=== PATIENT | male | born 1950 | race Caucasian/White ===

== ENCOUNTER → 2017-11-17 | Outpatient (CLI) | payer OTHER, MEDICARE ==
[~2017-11-17] MED LIST: ADVIN25050 INH; ALBU1AER9 INH; ASPI81TA28 PO; ATOR-24 PO; ATR25 PO; LORA-741 PO; METO25TA56 PO; NIFE30TA83 PO; NTRGSL/4 UT; PRLSR20 PO; SILD50TA PO; TRIA0.1C20 TOP
--- NOTE | 2017-11-18 05:35 | PAP/PSG TECHNICIAN REPORT ---
[facility] Safety Officer Polysomnogram Report Study name: None Report date: 11/18/2017 Study date: 11/17/2017 Referring Physician: Rogelio Verdin PA-C Name: CHIP CAREY Interpreting Physician: Med Downing M.D. Date of : 1950 Safety Officer: Velma Geller [facility]. Sex: Male Age: 67 Study Type: PSG Weight: 180 lbs Height: 67 years, Height 5' 8" BMI: 27.37 Medications: BACLOFEN 10 MG, ADVAIR DISKUS 250-50 MCG/DOSE, LOSARTAN 25 MG, METOPROLOL 25 MG, ASPIRIN 81 MG, ATORVASTATIN 40 MG, MIRALAX, BACTROBAN 2% OINT, VIAGRA 50 MG, ALBUTEROL Patient History 66 yr-old male here for a baseline/split study. He has a history of COPD, leg cramps, nose bleeds, and daytime sleepiness. His Morton scale is 8. The test was started on room air. ETCO2 testing was not utilized during this study. Room 1 Parameters Monitored NPSG: E1-M2, E2-M1, Fp1-M2, Fp2-M1, F3-M2, F4-M2, F4-M1, C3-M2, C4-M2, C4-M1, O1-M2, O2-M2, O2-M1, T3-M2, T4-M1, P3-M2, P4-M1, CHIN1, CHIN2, HR, EKG, Legs, PFLOW, SNOR, FLOW, CFLOW, Tidal Volume, THOR, ABDO, SpO2, PLTH, CPRESS, ETCO2 Wave, ETCO2, pH Sleep Architecture Sleep Stages Time at Lights Off 9:36:51 PM STAGES Time (min.) TST (%) Time at Lights On 5:13:21 AM Wake 74.0 -- Total Recording Time (TRT) 456.50 min. N1 72.5 19 Total Sleep Period (TSP) 429.5 min. N2 206.5 54 Total Sleep Time (TST) 382.5min. N3 0.0 0 Awake Time 74.0 min. REM 103.5 27 Wake after Sleep Onset 61.5 min. Sleep Efficiency (SE) 84 % Sleep Onset Latency (JAKE) 12.5 min. Number of Stage 1 Shifts None Awakenings 22 Stage Changes 75 Number of REM periods 12 REM 103.5 27 REM Latency 62.5 min. NREM 279.0 73 Body Position Analysis Supine Right Left Side Prone Vertical Total Sleep Time (min.) 456.5 0.0 0.0 0.00 0.0 0.0 Total Sleep Time (%) 100% 0% 0% 0 0% N/A% Total Sleep Time REM (min.) 103.5 0.0 0.0 None 0.0 0.0 Total Sleep Time NREM (min.) 279.0 0.0 0.0 None 0.0 0.0 Intermittent Wake (min.) 74.0 0.0 0.0 None 0.0 0.0 Total Sleep Period (%) 100% None None None None None Arousals Myoclonus (PLM) * Events Count Index Events Count Index Spontaneous 60 9 Events Awake (PLMW) 64 51.9 Respiratory 5 0.8 Events Asleep w/ Arousal (PLMA) 20 3.1 PLM 20 3 Events Asleep w/o Arousal (PLMS) 231 36.2 Snoring 15 2 Total Asleep 251 39.4 Total 100 16 Total 315 41 Respiratory Analysis * CA OA MA CH H RERA Total Count 5 0 0 0 49 4 54 Index 0.8 0.0 0.0 0 7.7 1 9.1 Mean Duration 14.6 0.0 0.0 0.00 18.7 19.1 18.4 Longest Duration 17.3 0.0 0.0 0.00 0.0 25.3 26.2 Respiratory Event Summary Total Supine ~Supine Right Left Prone REM NREM Apneas Count 5 5 N/A N/A N/A N/A 1 4 Index 0.8 1 N/A N/A N/A N/A 1 1 Hypopneas (4% Desat) Count 49 49 N/A N/A N/A N/A 7 42 Index 7.7 7.7 N/A N/A N/A N/A 4.1 9.0 Apneas & All Hypopneas Count 54 54 N/A N/A N/A N/A 8 46 Index 8.5 8 N/A N/A N/A N/A 4.6 9.9 Respiratory Events (Hims Clerk+All Hyp+RERA) Count 54 58 N/A N/A N/A N/A 8 46 Index 9.1 9 N/A N/A N/A N/A 5.2 10.5 Respiratory Related Arousal Count 5 58 N/A N/A N/A N/A 1 4 Index 0.8 1 N/A N/A N/A N/A 1 1 Snoring Analysis Supine Right Left Prone REM NREM Total Snore duration 8.1 min Snores count 284 N/A N/A N/A 88 196 284 Snore mean duration 1.7 Sec Snores index 45 N/A N/A N/A 51.0 42.2 44.5 TST with snoring (%) 2.1% SpO2 Analysis Total REM NREM Awake <50% 0.0 min. 0.0 min. 0.0 min. 0.0 min. 51 - 60% 0.0 min. 0.0 min. 0.0 min. 0.0 min. 61 - 70% 0.2 min. 0.0 min. 0.0 min. 0.2 min. 71 - 80% 0.1 min. 0.0 min. 0.1 min. 0.0 min. 81 - 90% 131.7 min. 21.3 min. 94.2 min. 16.2 min. 91 - 100% 315.7 min. 82.2 min. 183.8 min. 49.7 min. Average 91 91 91 92 Minimum SpO2 62 88 80 62 Desaturation Event Index 8.8 6.4 11.6 1.6 # Desat. Events below 89% 27 1 25 1 Time(%) with Saturation below 89% 1.4 0.1 1.2 0.1 Time(min.) with Saturation below 89% 6.2 0.3 5.3 0.6 Heart Rate Analysis End Tidal CO2 Analysis Min (bpm) Max (bpm) Average (bpm) TSP (mins) % of TSP Awake 37 82 69 Above 55 mmHg 0.0 0.0 NREM 50 91 60 50-55 mmHg 182.1 47.6 REM 52 79 61 45-50 mmHg 200.4 52.4 Overall 50 91 61 40-45 mmHg 0.0 0.0 35-40 mmHg 0.0 0.0 30-35 mmHg 0.0 0.0 Average ETCO2 0.0 Supplemental O2 Values Minimum O2 level: None Value Start Time End Time Safety Officer Comments Mr. Carey slept only in the supine position propped up on four pillows. Cardiac arrhythmias were noted (please refer to the print out). PLMs were noted. No bruxism noted. Snoring was noted and scored as a 1 on a scale of 1 through 5. (0=no snoring, 5=snoring loud enough to be heard through a closed door or down the [place] way) He did not meet specific Split-Night criteria during the diagnostic portion of this study. He awoke to use the restroom two times during the night. Mr. Carey stated that he slept about the same as usual. The final report will be interpreted and signed by a sleep physician. The completed physician report will then be placed in the patient medical record. Therapy (cm H2O) 0 TIB (min.) 456.5 TST (min.) 382.5 Sleep Onset (min.) 12.5 REM Onset From Sleep (min.) 62.5 Sleep Efficiency % 84 Wakefulness (%) 16 Wakefulness (min.) 74.0 NREM 1 (%) 19 NREM 1 (min.) 72.5 NREM 2 (%) 54 NREM 2 (min.) 206.5 NREM 3 (%) 0 NREM 3 (min.) 0.0 REM (%) 27 REM (min.) 103.5 # Arousals 100 Arousal Index 16 # Snore 284 Snore Index 44.5 AHI 8.5 AHI Supine 8 AHI Non-Supine N/A NREM AHI 9.9 REM AHI 4.6 RDI 9.1 # Obstructive Apnea 0 # Central Apnea 5 # Mixed Apnea 0 # Hypopneas 49 RERAs 4 Total Respiratory Events 59 Time Below SpO2 89% (min.) 5.6 Mean NREM SpO2 (%) 91 Mean REM SpO2 (%) 91 Mean Sleep SpO2 (%) 91 Min NREM SpO2 (%) 80 Min REM SpO2 (%) 88 Position Supine (min.) 456.5 Position Non-supine (min.) 0.0 LM Index Sleep 39.4 LM Index NREM 36.8 LM Index REM 46.4 Mean Heart Rate (bpm) 61 Min Heart Rate (bpm) 50
--- NOTE | 2017-11-20 11:05 | POLYSOMNOGRAPH REPORT ---
CLINICAL DATA: A 67-year-old male with BMI of 27.4, referred by Rogelio Verdin PA-C, with a history of COPD, poor sleep quality, and daytime sleepiness. His Acton sleepiness score is 8/24. SLEEP ARCHITECTURE: Total sleep period was 429.5 minutes. Total sleep time was 382.5 minutes divided between 279 minutes of non-REM sleep and 103.5 minutes of REM sleep. Sleep onset latency was 12.5 minutes. REM latency was 62.5 minutes. Sleep efficiency was 84%. Wake after sleep onset was 61.5 minutes. Sleep consisted of stage N1 19%, stage N2 54%, and REM 27%. AROUSAL DATA: 100 arousals were recorded for an index of 16 per hour. PLM DATA: 251 limb movements of sleep were noted for an index of 39.4 per hour with an arousal index of 3.1. RESPIRATORY DATA: Mild sleep apnea was documented. The AHI was 8.5. The RDI was 9. There were 5 central apneic episodes. The longest duration of apnea was 17.3 seconds. There were 49 hypopneic episodes with a mean duration of 18.7 seconds. There were 4 RERAs. The longest RERA was 25.3 seconds. OXIMETRY DATA: Nocturnal hypoxemia was seen. Oxygen dejuan was 80% during non-REM sleep. Mean saturation was 91%. Time below 89% was 6 minutes. EKG: Heart ranged from 50-91 beats per minute. Occasional PVCs were noted. HEALTH INFORMATION PROVIDER'S COMMENTS: The patient slept supine, propped up on 4 pillows. Frequent PLMs were noted. Snoring was moderate, rated 1 on a scale of 1-5. IMPRESSION: Mild sleep apnea/hypopnea with an AHI of 8.5 and an RDI of 9 with nocturnal hypoxemia and frequent PLMs during sleep. RECOMMENDATIONS: The patient may benefit from a repeat sleep study with CPAP, use of auto CPAP, or use of an oral appliance. Clinical correlation is needed. MICK
== END | disposition home or self-care (01) ==
LOC: C.NEUR 20:00
PROVIDERS: ATTEND Physician Assistant
DX: G47.30 Sleep apnea, unspecified (principal); G47.36 Sleep related hypoventilation in conditions classified elsewhere

== ENCOUNTER 2024-03-27 19:45 | Observation (INO) ==
--- OUTSIDE RECORDS SUMMARY | 2024-03-27 19:50 | External Medical Summary ---
Author Name Unknown Address Unknown Organization [id number]:[place]ORY [facility] [place] [address] [place] [address] Laboratory Report Ordering Provider Test Date Status ANALISA JUDD 02/01/2024 10:52:10 Final Observation Date Value Abnormality Reference (Units ) Status TSH 02/01/2024 10:52:10 0.79 0.27-4.20 (uIU/mL) Final Performing Location LAB[facility] [place] [address] [place] [address]
--- OUTSIDE RECORDS SUMMARY | 2024-03-27 19:50 | External Medical Summary ---
Author Name Unknown Address Unknown Organization [id number]:LABORATORY [facility] [place] - [address] [facility] [place] [address] Laboratory Report Ordering Provider Test Date Status ANALISA JUDD 02/01/2024 10:52:10 Final Observation Date Value Abnormality Reference (Units ) Status BUN 02/01/2024 10:52:10 16 6-20 (mg/dL) Final Creatinine 02/01/2024 10:52:10 0.8 0.6-1.2 (mg/dL) Final Glomerular filtration rate/1.73 sq M.predicted [Volume Rate/Area] in Serum, Plasma or Blood by Creatinine-based formula (CKD-EPI) 02/01/2024 10:52:10 >90 >=60 (mL/min) Final eGFR is calculated based on the CKD-EPI 2020 equation. Sodium 02/01/2024 10:52:10 139 135-146 (m mol/L) Final Potassium 02/01/2024 10:52:10 4.1 3.5-5.1 (m mol/L) Final Cl 02/01/2024 10:52:10 101 98-107 (mm ol/L) Final CO2 02/01/2024 10:52:10 28 22-32 (mmo l/L) Final Anion gap 02/01/2024 10:52:10 10 7-15 (mmol /L) Final Glucose 02/01/2024 10:52:10 99 70-120 (mg /dL) Final Albumin 02/01/2024 10:52:10 4.4 3.8-5.0 (g /dL) Final AST (Aspartate aminotransferase) 02/01/2024 10:52:10 21 10-50 (U/L) Final Alk Phos 02/01/2024 10:52:10 127 35-130 (U/ L) Final Bilirubin, Total 02/01/2024 10:52:10 1.2 <=1 .2 (mg/dL) Final Calcium 02/01/2024 10:52:10 9.0 8.4-10.2 ( mg/dL) Final Protein 02/01/2024 10:52:10 6.5 6.0-8.3 (g /dL) Final ALT (Alanine aminotransferase) 02/01/2024 10:52:10 10 10-50 (U/L) Final Performing Location LABORATORY [facility] [place] - [facility] [address] [facility] [address]
--- OUTSIDE RECORDS SUMMARY | 2024-03-27 19:50 | External Medical Summary | Summary of Care ---
Author Name Unknown Organization [facility] Address [address] [facility] [place] [address] Phone [phone] Care Team Providers Care Dispatch Associate Name Role Phone Leandro Robles MD Primary Care Provide r Encounter Details Date Type Department Care Team (Late st Contact Info) Description 02/02/2024 Orders Only Cardiology [address] [place] [address] Rogelio Verdin PA-C [address] [place] [id number] Anemia, unspecified type*; Unspecified disturbances of skin sensation Allergies Active Allergy Reactions Criticality Noted Date Comments Dextromethorphan Other (Please comment) 015 Breathlessness documented as of this encounter (statuses as of 02/02/2024) Medications Medication Sig Dispensed Refills Start Date End Date Status polyethylene glycol 3350 (MIRALAX) 255 gram powder TAKE 1 CAPFUL (17 G) BY MOUTH 2 TIMES A DAY MIXED IN JUICE, TO EFFECT 1 STOOL PER DAY 255 g 3 08/11/2016 Active Nitroglycerin 0.4 MG Sublingual Tablet Sublingual (Nitrostat)Indications :ASCVD (arteriosclerotic cardiovascular disease) TAKE 1 TABLET UNDER THE TONGUE EVERY 5 MINUTES FOR A MAXIMUM OF THREE DOSES FOR CHEST PAIN/PRESSURE 25 Tab 5 11/23/2020 Active Aspirin EC 81 MG Oral Tablet Delayed Release Take 1 Tablet by mouth in the morning. Takes on occasion. 10/01/2021 Active Carbidopa-Levodopa 25-250 MG Oral Tablet (Sinemet) Take 1 Tablet by mouth in the morning and 1 Tablet at noon and 1 Tablet before bedtime. 04/22/2022 Active Iron-Vitamin C 65-125 MG Oral Tablet (Vitron C) Take 1 Tablet by mouth once a day on Thursday, Thursday, and Thursday only. Active Pantoprazole Sodium 40 MG Oral Tablet Delayed Release (Protonix)Indications: Gastroesophageal reflux disease without esophagitis TAKE 1 TABLET BY MOUTH EVERY DAY IN THE MORNING 90 Tablet 3 05/22/2023 Active Fluticasone-Salmeterol 115-21 MCG/ACT Inhalation Aerosol (Advair HFA) Inhale 2 Puffs by mouth in the morning and 2 Puffs before bedtime. 36 g 3 11/23/2023 Active Atorvastatin Calcium 40 MG Oral Tablet (Lipitor)Indications:H yperlipidemia with target LDL less than 100,ASCVD (arteriosclerotic cardiovascular disease) TAKE 1 TABLET BY MOUTH EVERY DAY 90 Tablet 01/14/2024 Active Sertraline HCl 25 MG Oral Tablet (Zoloft)Indications:Pe rsistent insomnia,NATHALY (generalized anxiety disorder) TAKE 1 TABLET BY MOUTH EVERYDAY AT BEDTIME 90 Tablet 1 01/22/2024 Active Metoprolol Succinate ER 25 MG Oral Tablet Extended Release 24 Hour (toPROL XL)Indications:PVC's (premature ventricular contractions) TAKE 1 TABLET BY MOUTH EVERY DAY 90 Tablet 3 01/25/2024 Active Hospital, Clinic, or Other Facility Administered Medication Ordered Dose Route Frequency Start Date End Date Status albuterol sulfate (PROVENTIL) (2.5 MG/3ML) 0.083% inhalation solution 2.5 mgIndications:COPD, mild (HCC) 2.5 mg NEBULIZER Q4H PRN 06/24/2017 Active documented as of this encounter (statuses as of 02/02/2024) Active Problems Problem Noted Date Diagnosed Date Vitamin D deficiency 07/16/2021 Parkinson disease 06/03/2021 Overview: dx within 6mths - Pt does see DR. 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 Esophageal reflux Hyperlipidemia with target LDL less than 100 documented as of this encounter (statuses as of 02/02/2024) Resolved Problems Problem Noted Date Diagnosed Date Resolved Date Epistaxis 06/18/2017 03/18/2019 Acute coronary syndrome 03/10/200805/29 [employer] Other*[id number] 03/10/2008 05/06/2016 Overview: Study Title: Genomic Markers for Patients with Cardiovascular Disease Project # [id number] Conservation Technician: Colleen Cintron MD [phone] Alcohol dependence in remission 10/27/2003 06/18/2017 Tobacco use disorder 10/27/2003 008 Chronic prostatitis 10/21/2001 05/10/19 16 Achilles tendinitis 05/10/19 16 H. pylori infection 05/10/19 16 Overview: treated COPD, moderate 06/09/2019 Overview: Per COPD GOLD Classification documented as of this encounter (statuses as of 02/02/2024) Immunizations Name Administration Dates Next Due COVID-19 mRNA, LNP-s, No Pre serve, 2-Dose Series (Moderna) 06/09/2020,05/12/2020 COVID-19, mRNA, LNP-s, PF, B ooster, 100mcg/0.5mg (Moderna) 07/16/2021,02/14/2021 PPD 06/30/2017,01/11/2016 Pneumococcal Conjugate Vacc, 13 Valent (Prevnar) 04/19/2017 Pneumococcal Polysaccharide PPV23 (Pneumovax) 05/17/2019,10/23/2011 Season Influenza, Quad, PF, Adjuvanted, 65+ Yrs, IM (FLUAD) 03/07/2021,12/22/2019 Seasonal Influenza Vac., MDV , IM, 0.5 mL (Fluzone) 11/29/2015,05/10/2015,01/13/2014,12/28,12/29/2011,01/28/2011,02/18/2010 ,01/28/2009,04/11/2008,01/28/2007 Seasonal Influenza Virus Vac cine, Unspecified Formulation 12/22/2019 Seasonal Influenza, High Dos e, Trivalent, PF, IM (Fluzone HD) 12/22/2023,04/19/2017 Seasonal Influenza, PF, 6 M & above, IM , (FluLaval or Fluzone) 01/12/2019,01/01/2018 Seasonal Influenza, Quadriva lent Hd (Fluzone Hd) 12/24/2022 Seasonal Influenza, Quadriva lent Hd, 65+ Yrs 02/24/2022 TDAP (age 10 and older)(Boostrix) 04/08/2016 TDAP, Age 7 and older, IM (Adacel) 06/19/2018, Varicella Zoster Vaccine (Adult) 02/18/2014 Zoster Vaccine Recombinant (Shingrix) 03/03/2022 ,03/11/2021 documented as of this encounter Social History Tobacco Use Types Packs/Day Years Used Date Smoking Tobacco: Former Cigarettes 2 40 1 03/30/1961 - 01/28/2002 Smokeless Tobacco: Never Alcohol Use Standard Drinks/Week Comments No 0 (1 standard drink = 0.6 oz pur e alcohol) quit drinking 2001 PHQ-2 Answer Date Recorded PHQ Adult Total Score 1 06/05/2022 Hunger Vital Sign Answer Date Recorded Within the past 12 months, y ou worried that your food would run out before you got the money to buy more. Never true 06/06/19 23 Within the past 12 months, t he food you bought just didn't last and you didn't have money to get more. Never true 06/05/2022 Sex and Gender Information Value Date Recorded Sex Assigned at Male 06/03/2021 10:53 AM EST Gender Identity Male 06/03/2021 10:53 AM EST Sexual Orientation Straight 06/03/2021 10 :53 AM EST Job Start Date Occupation Industry Not on file Not on file Not on file documented as of this encounter Plan of Treatment Upcoming Encounters Date Type Department Care Team (Late st Contact Info) Description 05/17/2024 1:40 PM EST Office Visit [address] [place] [phone] Leandro Robles MD [address] [place] [address] [place] [address] 06/10/2024 10:00 AM EDT Nurse Only Ancillary [address] [place] [phone] [place], Nurse Annual [address] [place] [address] 01/23/2025 1:20 PM EDT Office Visit [address] [place] [phone] Leandro Robles MD [address] [place] [address] [place] [phone] Pending Results Name Type Priority Associated Diagnoses Date /Time IRON SCREEN, INCLUDING TIBC Lab Routine Anemia, unspecified type 02/01/2024 10:52 AM EST VITAMIN B12 Lab Routine Anemia, unspecified type Unspecified disturbances of skin sensation 02/01/2024 10:52 AM EST FOLIC ACID Lab Routine Anemia, unspecified type Unspecified disturbances of skin sensation 02/01/2024 10:52 AM EST FERRITIN Lab Routine Anemia, unspecified type 02/01/2024 10:52 AM EST TSH WITH FREE T4 IF INDICATED Lab Routine Anemia, unspecified type 02/01/2024 10:52 AM EST Scheduled Orders Name Type Priority Associated Diagnoses Orde r Schedule IRON SCREEN, INCLUDING TIBC Lab Routine Anemia, unspecified type Expected: 02/02/2024, Expires: 02/01/2025 VITAMIN B12 Lab Routine Anemia, unspecified type Unspecified disturbances of skin sensation Expected: 02/02/2024, Expires: 02/01/2025 FOLIC ACID Lab Routine Anemia, unspecified type Unspecified disturbances of skin sensation Expected: 02/02/2024, Expires: 02/01/2025 FERRITIN Lab Routine Anemia, unspecified type Expected: 02/02/2024, Expires: 02/01/2025 TSH WITH FREE T4 IF INDICATED Lab Routine Anemia, unspecified type Expected: 02/02/2024, Expires: 02/01/2025 SERUM PROTEIN ELECTROPHORESIS REFLEX PROFILE Lab Routine Anemia, unspecified type Expected: 02/02/2024, Expires: 02/01/2025 Scheduled Procedures Name Priority Associated Diagnoses Date/Ti me COLONOSCOPY FLEXIBLE PROXIMAL DIAGNOSTIC Recall History of colon polyps Health Maintenance Due Date Last Done Comments Alpha-1 Antitrypsin 11/09/1969 Hepatitis C Screening 11/09/1969 Cologuard 11/09/1996 Sigmoidoscopy 11/09/1996 Fecal Occult Blood Test 09/11/2012 09/12/2011, 10/26 COVID-19 Vaccine ( season) 2023 01/09/2023, 07/16/2021, 02/14/2021, Additional history exists Adult Wellness Visit 06/08/2024 06/09/2023, 06/05/2022, 06/03/2021 Depression Screening 06/08/2024 06/09/2023 O2 ASSESSMENT COMPLETED IN PAST YEAR FOR COPD 12/21/2024 12/22/2023 GFR 01/31/2025 02/01/2024, 08/28, 10/29/2021, Additional history exists Colonoscopy 11/15/2026 11/15/2021, 10/28, 08/13/2016, Additional history exists Colorectal Cancer Screening 11/15/2026 Albumin/Creatinine Ratio 01/31/2027 02/01/2024 DTap/Tdap Vaccines (4 - Td or Tdap) 06/19/2028 06/19/2018, 04/08/2016, 02/03/2007 AAA Screening Completed 04/28/2017, 05/19/1998 Pneumococcal Vaccine: 65+ Years Completed 05/17/2019, 04/19/2017, 10/23/2011 RETIRED - COLONOSCOPY-EVERY 5 YRS AGES 18-100 Discontinued 11/15/2021, 11/15/2021, 08/13/2016, Additional history exists Zoster Vaccines Completed 03/03/2022, 02/27, 02/18/2014 Influenza Vaccine (FLU shot) Completed 12/22/2023, 12/24/2022, 02/24/2022, Additional history exists HPV (Gardasil) Vaccine Aged Out No lo nger eligible based on patient's age to complete this topic Hepatitis B Vaccine Aged Out No longe r eligible based on patient's age to complete this topic MENINGOCOCCAL (MENACTRA/MENVEO) Aged Out No longer eligible based on patient's age to complete this topic documented as of this encounter Medical Devices Implanted Type Area Curing Machine Operator Device Identifier Shelf Expiration Date Model / Serial / Lot Lens Intraoc 19.0 - [id number] - [id number] Implanted:Qty: 1 on 06/02/2019 by Thomas Maxwell MD at [facility] Left: Eye [employer] 12/28/2023 [id number] / [id number] / [id number] documented as of this encounter Visit Diagnoses Diagnosis Anemia, unspecified type- Primary Unspecified disturbances of skin sensation documented in this encounter Advance Directives * Full Code (Latest Code Status on File) Date Activated Date Inactivated Comments 03/10/2008 1:11 PM 03/11/2008 5:46 PM Care Teams Dispatch Associate Relationship Specialty Start Date End Date Leandro Robles MD [address] [place] [address] [place] [id number] PCP - General Family Medicine 12/18/16 documented as of this encounter
--- OUTSIDE RECORDS SUMMARY | 2024-03-27 19:50 | External Medical Summary ---
Author Name Unknown Address Unknown Organization K01:LABORATORY [facility] - [address] [place] [address] Laboratory Report Ordering Provider Test Date Status NEPTALI JUDDO 02/01/2024 10:52:10 Final Observation Date Value Abnormality Reference (Units ) Status Ferritin 02/01/2024 10:52:10 43 30-400 (ng /mL) Final Performing Location LABORATORY [facility] - [address] [place] [address]
--- OUTSIDE RECORDS SUMMARY | 2024-03-27 19:50 | External Medical Summary ---
Author Name Unknown Address Unknown Organization K01:LABORATORY [facility] [place] [address] [place] [place] [address] Laboratory Report Ordering Provider Test Date Status ABDULLAHI SULLIVAN 02/01/2024 10:52:10 Final Normal: <30 mg/g creatinine< br/>High: 30-300 mg/g creatinine
Very High: >300 mg/g creatinine
Nephrotic: >2200 mg/g creatinine Observation Date Value Abnormality Reference (Units ) Status Albumin, Urine 02/01/2024 10:52:10 3.00 (mg/dL) Final Creatinine, Urine 02/01/2024 10:52:10 177 (mg/dL) Final Albumin/Creatinine [Mass Ratio] in Urine 02/01/2024 10:52:10 17 <30 (mg/g Creat) Final Performing Location LABORATORY [facility] [place] - [address] [place] [address]
--- OUTSIDE RECORDS SUMMARY | 2024-03-27 19:50 | External Medical Summary | Summary of Care ---
Author Name Unknown Organization [facility] Address [address] [place] [place] [address] Phone [phone] Care Team Providers Care Hobber Name Role Phone Valeriano Mcgowan MD Primary Care Provide r Reason for Visit * Reason Comments eRx-Medication Refill Encounter Details Date Type Department Care Team (Late st Contact Info) Description 01/21/2024 Refill Family Medicine [address] [place] [address] Valeriano Mcgowan MD [address] [place] [address] [place] [address] Persistent insomnia; NATHALY (generalized anxiety disorder) Allergies Active Allergy Reactions Criticality Noted Date Comments Dextromethorphan Other (Please comment) 015 Breathlessness documented as of this encounter (statuses as of 01/22/2024) Medications Medication Sig Dispensed Refills Start Date End Date Status polyethylene glycol 3350 (MIRALAX) 255 gram powder TAKE 1 CAPFUL (17 G) BY MOUTH 2 TIMES A DAY MIXED IN JUICE, TO EFFECT 1 STOOL PER DAY 255 g 3 08/11/2016 Active Nitroglycerin 0.4 MG Sublingual Tablet Sublingual (Nitrostat)Indicatio ns:ASCVD (arteriosclerotic cardiovascular disease) TAKE 1 TABLET UNDER [...] on Thursday, Thursday, and Thursday only. Active Metoprolol Succinate ER 25 MG Oral Tablet Extended Release 24 Hour (toPROL XL)Indications:PVC's (premature ventricular contractions) TAKE 1 TABLET BY MOUTH EVERY DAY 90 Tablet 3 04/07/2023 Active Pantoprazole Sodium 40 MG Oral Tablet Delayed Release (Protonix)Indication s:Gastroesophageal reflux disease without esophagitis TAKE 1 TABLET BY MOUTH EVERY DAY IN THE MORNING 90 Tablet 3 05/22/2023 Active Fluticasone-Salmeter ol 115-21 MCG/ACT Inhalation Aerosol (Advair HFA) Inhale 2 Puffs by mouth in the morning and 2 Puffs before bedtime. 36 g 3 11/23/2023 Active Atorvastatin Calcium 40 MG Oral Tablet (Lipitor)Indications :Hyperlipidemia with target LDL less than 100,ASCVD (arteriosclerotic cardiovascular disease) TAKE 1 TABLET BY MOUTH EVERY DAY 90 Tablet 01/14/2024 Active Sertraline HCl 25 MG Oral Tablet (Zoloft)Indications: Persistent insomnia,NATHALY (generalized anxiety disorder) TAKE 1 TABLET BY MOUTH EVERYDAY AT BEDTIME 90 Tablet 1 01/22/2024 Active Sertraline HCl 25 MG Oral Tablet (Zoloft)Indications: Persistent insomnia,NATHALY (generalized anxiety disorder) TAKE 1 TABLET BY MOUTH EVERYDAY AT BEDTIME 90 Tablet 10/19/2023 Discontinued Hospital, Clinic, or Other Facility Administered Medication Ordered Dose Route Frequency Start Date End Date Status albuterol sulfate (PROVENTIL) (2.5 MG/3ML) 0.083% inhalation solution 2.5 mgIndications:COPD, mild (HCC) 2.5 mg NEBULIZER Q4H PRN 06/24/2017 Active documented as of this encounter (statuses as of 01/22/2024) Active Problems Problem Noted Date Diagnosed Date [...] as of this encounter (statuses as of 01/22/2024) Resolved Problems Problem Noted Date Diagnosed Date Resolved Date Epistaxis 06/18/2017 03/18/2019 Acute coronary syndrome 03/10/200805/29 [employer] Other*[id number] 03/10/2008 05/06/2016 Overview: Study Title: Genomic Markers for Patients with Cardiovascular Disease Project # [id number] Histology Aide: Colleen Cintron MD [phone] Alcohol dependence in remission 10/27/2003 06/18/2017 Tobacco use disorder 10/27/2003 008 Chronic prostatitis 10/21/2001 05/10/19 16 Achilles tendinitis 05/10/19 16 H. pylori infection 05/10/19 16 Overview: treated COPD, moderate 06/09/2019 Overview: Per COPD GOLD Classification documented as of this encounter (statuses as of 01/22/2024) Immunizations Name Administration Dates Next Due COVID-19 [...] on file documented as of this encounter Miscellaneous Notes * Telephone Encounter - James Trujillo [facility] - 01/22/2024 2:47 PM EDT Signed Prescriptions: Disp Refills Sertraline HCl 25 MG Oral Tablet (Zoloft) 90 Tab*1 Sig: TAKE 1 TABLET BY MOUTH EVERYDAY AT BEDTIMEAuthorizing Provider: VALERIANO MCGOWANOrderburak User: JAMES TRUJILLO documented in this encounter Plan of Treatment Upcoming Encounters Date Type Department Care Team (Late st Contact Info) Description 05/17/2024 1:40 PM EST Office Visit Family Medicine [address] [phone] Valeriano Mcgowan MD [address] [place] [address] [place] [address] 06/10/2024 10:00 AM EDT Nurse Only Ancillary [address] [place] [address] Teresa, Nurse Annual [address] [place] [address] 01/23/2025 1:20 PM EDT Office Visit [address] [place] [address] Valeriano Mcgowan MD [address] [place] [address] [place] [address] Scheduled Procedures Name Priority Associated Diagnoses Date/Ti me COLONOSCOPY FLEXIBLE PROXIMAL DIAGNOSTIC Recall History of colon polyps Health Maintenance Due Date Last Done Comments Albumin/Creatinine Ratio 11/09/1969 Alpha-1 Antitrypsin 11/09/1969 Hepatitis C Screening 11/09/1969 Cologuard 11/09/1996 Sigmoidoscopy 11/09/1996 Fecal Occult Blood Test 09/11/2012 09/12/2011, 10/26 GFR 09/10/2023 09/09/2022, 04/2021, 11/23/2020, Additional history exists COVID-19 Vaccine ( season) 2023 01/09/2023, 07/16/2021, 02/14/2021, Additional history exists Adult Wellness Visit 06/08/2024 06/09/2023, 06/05/2022, 06/03/2021 Depression Screening 06/08/2024 06/09/2023 O2 ASSESSMENT COMPLETED IN PAST YEAR FOR COPD 12/21/2024 12/22/2023 Colonoscopy 11/15/2026 11/15/2021, 10/28, 08/13/2016, Additional history exists Colorectal Cancer Screening 11/15/2026 DTap/Tdap Vaccines (4 - Td or Tdap) [...] this encounter Medical Devices Implanted Type Area Fluid Designer Device Identifier Shelf Expiration Date Model / Serial / Lot Lens Intraoc 19.0 - [id number] - [id number] Implanted:Qty: 1 on 06/02/2019 by Thomas Maxwell MD at [facility] Left: Eye [employer] 12/28/2023 [id number] / [id number] / [id number] documented as of this encounter Visit Diagnoses Diagnosis Persistent insomnia Persistent disorder of initiating or maintaining sleep NATHALY (generalized anxiety disorder) Generalized anxiety disorder documented in this encounter Advance Directives * Full Code (Latest Code Status on File) Date Activated Date Inactivated Comments 03/10/2008 1:11 PM 03/11/2008 5:46 PM Care Teams Hobber Relationship Specialty Start Date End Date Valeriano Mcgowan MD [address] [place] [address] [place] [address] PCP - General Family Medicine 12/18/16 documented as of this encounter
--- OUTSIDE RECORDS SUMMARY | 2024-03-27 19:50 | External Medical Summary | Summary of Care ---
Author Name Unknown Organization [facility] Address [address] [place] [facility] [place] [address] Phone [phone] Care Team Providers Care Title Investigator Name Role Phone Leandro Robles MD Primary Care Provide r Encounter Details Date Type Department Care Team (Late st Contact Info) Description 11/18/2023 Telephone Family Medicine [address] [place] [phone] Leandro Robles MD [address] [place] [address] [place] [phone] Allergies Active Allergy Reactions Criticality Noted Date Comments Dextromethorphan Other (Please comment) 015 Breathlessness documented as of this encounter (statuses as of 02/17/2024) Medications polyethylene glycol 3350 (MIRALAX) 255 gram powder TAKE 1 CAPFUL (17 G) BY MOUTH 2 TIMES A DAY MIXED IN JUICE, TO EFFECT 1 STOOL PER DAY 255 g 3 08/12/19 17 Active Nitroglycerin 0.4 MG Sublingual Tablet Sublingual (Nitrostat)Indicat ions:ASCVD (arteriosclerotic cardiovascular disease) TAKE 1 TABLET UNDER THE TONGUE EVERY 5 MINUTES FOR A MAXIMUM OF THREE DOSES FOR CHEST PAIN/PRESSU RE 25 Tab 5 11/24/19 21 Active Aspirin EC 81 MG Oral Tablet Delayed Release Take 1 Tablet by mouth in the morning. Takes on occasion. 10/02/19 22 Active Carbidopa-Levodopa 25-250 MG Oral Tablet (Sinemet) Take 1 Tablet by mouth in the morning and 1 Tablet at noon and 1 Tablet before bedtime. 04/22/19 23 Active Iron-Vitamin C 65-125 MG Oral Tablet (Vitron C) Take 1 Tablet by mouth once a day on Thursday, Thursday, and Thursday only. Active Pantoprazole Sodium 40 MG Oral Tablet Delayed Release (Protonix)Indicati ons:Gastroesophage al reflux disease without esophagitis TAKE 1 TABLET BY MOUTH EVERY DAY IN THE MORNING 90 Tablet 3 05/22/19 24 Active Fluticasone-Salmet joaquina 115-21 MCG/ACT Inhalation Aerosol (Advair HFA) Inhale 2 Puffs by mouth in the morning and 2 Puffs before bedtime. 36 g 3 11/23/19 24 Active Atorvastatin Calcium 40 MG Oral Tablet (Lipitor)Indicatio ns:Hyperlipidemia with target LDL less than 100,ASCVD (arteriosclerotic cardiovascular disease) TAKE 1 TABLET BY MOUTH EVERY DAY 90 Tablet 3 11/11/19 23 024 Discontinued Metoprolol Succinate ER 25 MG Oral Tablet Extended Release 24 Hour (toPROL XL)Indications:PVC 's (premature ventricular contractions) TAKE 1 TABLET BY MOUTH EVERY DAY 90 Tablet 3 04/07/19 24 024 Discontinued Sertraline HCl 25 MG Oral Tablet (Zoloft)Indication s:Persistent insomnia,NATHALY (generalized anxiety disorder) TAKE 1 TABLET BY MOUTH EVERYDAY AT BEDTIME 90 Tablet 10/19/19 24 024 Discontinued Fluticasone-Salmet joaquina 250-50 MCG/ACT Inhalation Aerosol Powder Breath Activated (Advair Diskus)Indications :COPD, group B, by GOLD 2017 classification (HCC) INHALE 1 PUFF BY MOUTH 2 TIMES A DAY. 60 Each 11/17/19 24 024 Discontinued Hospital, Clinic, or Other Facility Administered Medication Ordered Dose Route Frequency Start Date End Date Status albuterol sulfate (PROVENTIL) (2.5 MG/3ML) 0.083% inhalation solution 2.5 mgIndications:COPD, mild (HCC) 2.5 mg NEBULIZER Q4H PRN 06/24/2017 Active documented as of this encounter (statuses as of 02/17/2024) Active Problems Problem Noted Date Diagnosed Date Vitamin D deficiency 07/16/2021 Parkinson disease 06/03/2021 Overview (06/03/2021): dx within 6mths - Pt does see [...] as of this encounter (statuses as of 02/17/2024) Resolved Problems Problem Noted Date Diagnosed Date Resolved Date Epistaxis 06/18/2017 03/18/2019 Acute coronary syndrome 03/10/200805/29 [employer] Other*[id number] 03/10/2008 05/06/2016 Overview (05/12/2014): Study Title: Genomic Markers for Patients with Cardiovascular Disease Project # [id number] Architecture Manager: Colleen Cintron MD [phone] Alcohol dependence in remission 10/27/2003 06/18/2017 Tobacco use disorder 10/27/2003 008 Chronic prostatitis 10/21/2001 05/10/19 16 Achilles tendinitis 05/10/19 16 H. pylori infection 05/10/19 16 Overview (10/15/2009): treated COPD, moderate 06/09/2019 Overview: Per COPD GOLD Classification documented as of this encounter (statuses as of 02/17/2024) Immunizations Name Administration Dates Next Due COVID-19 [...] Dos e, Trivalent, PF, IM (Fluzone HD) 04/19/2017 Seasonal Influenza, PF, 6 M & above, [...] Answer Date Recorded PHQ Adult Total Score 0 06/09/2023 Hunger Vital Sign Answer Date Recorded Within the past 12 months, y ou worried that your food would run out before you got the money to buy more. Never true 06/09/19 24 Within the past 12 months, t he food you bought just didn't last and you didn't have money to get more. Never true 06/09/2023 Childcare Answer Date Recorded Do you feel overwhelmed with taking care of a child, family member or friend? No 06/09/2023 Does your family need help f inding childcare? (Household - for ages 0-17 years) Not on file 06/09/2023 Clothing Answer Date Recorded Have you been unable to get clothing when it was really needed? No 06/09/2023 Is your family able to get c lothes or diapers when needed? (Household - for ages 0-17 years) Not on file 06/09/2023 Personal Safety Answer Date Recorded Do you feel unsafe or have concerns for your saf ety? No 06/09/2023 Do you have concerns for you r family's safety? (Household - for ages 0-17 years) Not on file 06/09/2023 Utilities Answer Date Recorded Do you have trouble paying y our heating, water, or electric bill? No 06/09/2023 Is your family able to pay t he heat, water, or electric bill? (Household - for ages 0-17 years) Not on file 06/09/2023 Does your family have access to good internet? (Household - for ages 0-17 years) Not on file 06/09/2023 Employment Status Answer Date Recorded Are you unemployed or without regular income? No 06/09/2023 Does the household have a [facility] source of income? (Household - for ages 0-17 years) Not on file 06/09/2023 Social Connections Answer Date Recorded How often do you feel lonely or isolated from th ose around you? Never 06/09/2023 Financial Resource Strain Answer Date R ecorded Do you have any trouble payi ng for your medications, or do you think you might in the future? No 06/09/2023 Does your family have troubl e paying for medicine? (Household - for ages 0-17 years) Not on file 06/09/2023 Transportation Needs Answer Date Record ed READ ONLY Do you have troubl e getting a ride to medical visits or work? Never True 06/09/2023 Does your family have a hard time getting a ride to doctors visits? (Household - for ages 0-17 years) Not on file 06/09/2023 Has lack of transportation k ept you from medical appointments, meetings, work, or from getting things needed for daily living? Check all that apply. (Adult - for ages 18 years and over) Not on file 06/09/2023 Do you (or your family) have trouble finding or paying for a ride (transportation)? (Household - for ages 0-17 years) Not on file 06/09/2023 Housing Stability Answer Date Recorded Do you currently live in a s helter or have no steady place to sleep at night? No 06/09/2023 READ ONLY Do you think you a re at risk of becoming homeless? No 06/09/2023 Does your family worry about paying for your home or becoming homeless? (Household - for ages 0-17 years) Not on file 0 06/09/2023 Are you homeless or worried that you might be in the future? (Adult - for ages 18 years and over) Not on file Are you (or your family) ni eless or worried that you might be in the future? (Household - for ages 0-17 years) Not on file Food Insecurity Answer Date Recorded Do you need food for this week? No 06/09/2023 Are you able to get enough f ood for your family? (Household - for ages 0-17 years) Not on file 06/09/2023 Does your family need food t his week? (Household - for ages 0-17 years) Not on file 06/09/2023 Do you always have enough fo od for your family? (Household - for ages 0-17 years) Not on file 06/09/2023 Sex and Gender Information Value Date Recorded Sex Assigned at Male 06/03/2021 10:53 AM EST Legal Sex Male 5:27 AM EST Gender Identity Male 06/03/2021 10:53 AM EST Sexual Orientation Straight 06/03/2021 10 :53 AM EST documented as of this encounter Miscellaneous Notes * Telephone Encounter - Leandro Robles MD - 11/23/2023 9:59 AM EDT Changed to Advair Hfa * Telephone Encounter - Onelia Conley OSA - 11/18/2023 3:49 PM EDT [facility] [address] Said Advair 250-50 diskus is Not on formulary insurance only wants breo, dulera, or advair hfa documented in this encounter Plan of Treatment Upcoming Encounters Date Type Department Care Team (Late st Contact Info) Description 05/17/2024 1:40 PM EST Office [place] [address] [place] [phone] Leandro Robles MD [address] [place] [address] [place] [address] 06/10/2024 10:00 AM EDT Nurse Only Ancillary [address] [place] [address] [place], Nurse Annual [address] [place] [address] 01/23/2025 1:20 PM EDT Office Visit [address] [place] [phone] Leandro Robles MD [address] [place] [address] [place] [address] Scheduled Procedures Name Priority Associated Diagnoses Date/Ti me COLONOSCOPY FLEXIBLE PROXIMAL DIAGNOSTIC Recall History of colon polyps Health Maintenance Due Date Last Done Comments Alpha-1 Antitrypsin 11/09/1969 Hepatitis C Screening 11/09/1969 Cologuard 11/09/1996 Sigmoidoscopy 11/09/1996 Fecal Occult Blood Test 09/11/2012 09/12/2011, 10/26 COVID-19 Vaccine (6 - 2024-25 season) 2023 01/09/2023, 07/16/2021, 02/14/2021, Additional history [...] this encounter Medical Devices Implanted Type Area Transportation Specialist Device Identifier Shelf Expiration Date Model / Serial / Lot Lens Intraoc 19.0 - [id number] - [id number] Implanted:Qty: 1 on 06/02/2019 by Thomas Maxwell MD at [facility] Left: Eye [employer]OM[employer] 12/28/2023 [id number] / [id number] / [id number] documented as of this encounter Advance Directives * Full Code (Latest Code Status on File) Date Activated Date Inactivated Comments 03/10/2008 1:11 PM 03/11/2008 5:46 PM Care Teams Title Investigator Relationship Specialty Start Date End Date Leandro Robles MD [address] [place] [address] [place] [address] PCP - General Family Medicine 12/18/16 documented as of this encounter
--- OUTSIDE RECORDS SUMMARY | 2024-03-27 19:50 | External Medical Summary | Summary of Care ---
Author Name Unknown Organization [facility] Address [address] [place] [facility] [place] [place] [address] Phone [phone] Care Team Providers Care Box Maker Name Role Phone Leandro Robles MD Primary Care Provide r Reason for Visit * Reason Onset Date Comments Med Request 11/16/2023 Encounter Details Date Type Department Care Team (Late st Contact Info) Description 11/16/2023 Telephone Family Medicine [address] [place] [address] Leandro Robles MD [address] [place] [address] [place] [address] Med Request Allergies Active Allergy Reactions Criticality Noted Date Comments Dextromethorphan Other (Please comment) 015 Breathlessness documented as of this encounter (statuses as of 02/15/2024) Medications polyethylene glycol 3350 (MIRALAX) 255 gram powder TAKE 1 CAPFUL (17 G) BY MOUTH 2 TIMES A DAY MIXED IN JUICE, TO EFFECT 1 STOOL PER DAY 255 g 3 7 Active Nitroglycerin 0.4 MG Sublingual Tablet Sublingual (Nitrostat)Indicati ons:ASCVD (arteriosclerotic cardiovascular disease) TAKE 1 TABLET UNDER THE TONGUE EVERY 5 MINUTES FOR A MAXIMUM OF THREE DOSES FOR CHEST PAIN/PRESSUR E 25 Tab 5 1 Active Aspirin EC 81 MG Oral Tablet Delayed Release Take 1 Tablet by mouth in the morning. Takes on occasion. 2 Active Carbidopa-Levodopa 25-250 MG Oral Tablet (Sinemet) Take 1 Tablet by mouth in the morning and 1 Tablet at noon and 1 Tablet before bedtime. 3 Active Iron-Vitamin C 65-125 MG Oral Tablet (Vitron C) Take 1 Tablet by mouth once a day on Thursday, Thursday, and Thursday only. Active Pantoprazole Sodium 40 MG Oral Tablet Delayed Release (Protonix)Indicatio ns:Gastroesophageal reflux disease without esophagitis TAKE 1 TABLET BY MOUTH EVERY DAY IN THE MORNING 90 Tablet 3 4 Active Hospital, Clinic, or Other Facility Administered Medication Ordered Dose Route Frequency Start Date End Date Status albuterol sulfate (PROVENTIL) (2.5 MG/3ML) 0.083% inhalation solution 2.5 mgIndications:COPD, mild (HCC) 2.5 mg NEBULIZER Q4H PRN 06/24/2017 Active documented as of this encounter (statuses as of 02/15/2024) Active Problems Problem Noted Date Diagnosed Date [...] as of this encounter (statuses as of 02/15/2024) Resolved Problems Problem Noted Date Diagnosed Date Resolved Date Epistaxis 06/18/2017 03/18/2019 Acute coronary syndrome 03/10/200805/29 [employer] Other*[id number] 03/10/2008 05/06/2016 Overview (05/12/2014): Study Title: Genomic Markers for Patients with Cardiovascular Disease Project # [id number] Supervisor Hand Workers: Colleen Cintron MD [phone] Alcohol dependence in remission 10/27/2003 06/18/2017 Tobacco use disorder 10/27/2003 008 Chronic prostatitis 10/21/2001 05/10/19 16 Achilles tendinitis 05/10/19 16 H. pylori infection 05/10/19 16 Overview (10/15/2009): treated COPD, moderate 06/09/2019 Overview: Per COPD GOLD Classification documented as of this encounter (statuses as of 02/15/2024) Immunizations Name Administration Dates Next Due COVID-19 [...] No 06/09/2023 Does the household have a re gular source of income? (Household - for ages [...] encounter Miscellaneous Notes * Telephone Encounter - Madeline Ashton PHARM Tech - 11/16/2023 8:18 AM EDT Patient calling in regarding a medication last prescribed by PCP office, transferring caller to Medication Refill Line for further assistance. Thank you, Madeline Ashton Banquet Server On [facility] 11/16/2023,8:18 AM documented in this encounter Plan of Treatment Upcoming Encounters Date Type Department Care Team (Late st Contact Info) Description 05/17/2024 1:40 PM EST Office Visit Family Medicine [address] [place] [phone] Leandro Robles MD [address] [place] [address] [place] [phone] 06/10/2024 10:00 AM EDT Nurse Only Ancillary [address] [place] [address] [place], Nurse Annual [address] [place] [address] 01/23/2025 1:20 PM EDT Office Visit Family Medicine [address] [place] [phone] Leandro Robles MD [address] [place] [address] [place] [address] Scheduled Procedures Name Priority Associated Diagnoses Date/Ti [...] this encounter Medical Devices Implanted Type Area Acid Bleacher Device Identifier Shelf Expiration Date Model / Serial / Lot Lens Intraoc 19.0 - [id number] - [id number] Implanted:Qty: 1 on 06/02/2019 by Thomas Maxwell MD at [facility] Left: Eye [employer]OM[employer] 12/28/2023 [id number] / [id number] / [id number] documented as of this encounter Advance Directives * Full Code (Latest Code Status on File) Date Activated Date Inactivated Comments 03/10/2008 1:11 PM 03/11/2008 5:46 PM Care Teams Box Maker Relationship Specialty Start Date End Date Leandro Robles MD [address] [place] [address] [place] [address] PCP - General Family Medicine 12/18/16 documented as of this encounter
--- OUTSIDE RECORDS SUMMARY | 2024-03-27 19:50 | External Medical Summary ---
Author Name Unknown Address Unknown Organization K01:[facility] [place] [address] [place] [place] [id number] Laboratory Report Ordering Provider Test Date Status ANALISA JUDD 02/01/2024 10:52:10 Final Observation Date Value Abnormality Reference (Units ) Status Iron 02/01/2024 10:52:10 60 45-176 (ug /dL) Final Iron-binding capacity 02/01/2024 10:52:10 304 250-425 (ug/dL) Final Transferrin Sat % 02/01/2024 10:52:10 20 15 -55 (%) Final Performing Location [facility] [place] [address] [place] [id number]
--- OUTSIDE RECORDS SUMMARY | 2024-03-27 19:50 | External Medical Summary | Summary of Care ---
Author Name Unknown Organization [facility] Address [address] [facility] [place] [address] Phone [phone] Care Team Providers Care Marketing Communications Manager Name Role Phone Leandro Robles MD Primary Care Provide r Reason for Visit * Reason Comments Outpatient Testing Encounter Details Date Type Department Care Team (Late st Contact Info) Description 02/01/2024 10:50 AM EST Laboratory Laboratory [address] [place] [phone] [place] [address] HTN, goal below 140/90; Dyslipidemia, goal LDL below 70 Allergies Active Allergy Reactions Criticality Noted Date Comments Dextromethorphan Other (Please comment) 015 Breathlessness documented as of this encounter (statuses as of 02/01/2024) Medications Medication Sig Dispensed Refills Start Date [...] as of this encounter (statuses as of 02/01/2024) Active Problems Problem Noted Date Diagnosed Date [...] as of this encounter (statuses as of 02/01/2024) Resolved Problems Problem Noted Date Diagnosed Date Resolved Date Epistaxis 06/18/2017 03/18/2019 Acute coronary syndrome 03/10/200805/29 [employer] Other*[id number] 03/10/2008 05/06/2016 Overview: Study Title: Genomic Markers for Patients with Cardiovascular Disease Project # [id number] Assembler Arranger: Colleen Cintron MD [phone] Alcohol dependence in remission 10/27/2003 06/18/2017 Tobacco use disorder 10/27/2003 008 Chronic prostatitis 10/21/2001 05/10/19 16 Achilles tendinitis 05/10/19 16 H. pylori infection 05/10/19 16 Overview: treated COPD, moderate 06/09/2019 Overview: Per COPD GOLD Classification documented as of this encounter (statuses as of 02/01/2024) Immunizations Name Administration Dates Next Due COVID-19 [...] Description 05/17/2024 1:40 PM EST Office Visit [address] [phone] Leandro Robles MD [address] [place] [address] [place] [address] 06/10/2024 10:00 AM EDT Nurse Only Ancillary [address] [place] [address] [place], Nurse Annual [address] [place] [address] 01/23/2025 1:20 PM EDT Office Visit [address] [place] [phone] Leandro Robles MD [address] [place] [address] [place] [address] Pending Results Name Type Priority Associated Diagnoses Date /Time CBC Lab Routine HTN, goal below 140/90 02/01/2024 10:52 AM EST LIPID PANEL WITH DIRECT LDL IF TG IS HIGH Lab Routine Dyslipidemia, goal LDL below 70 02/01/2024 10:52 AM EST COMPREHENSIVE METABOLIC PANEL Lab Routine Dyslipidemia, goal LDL below 70 02/01/2024 10:52 AM EST MAGNESIUM Lab Routine Dyslipidemia, goal LDL below 70 02/01/2024 10:52 AM EST ALBUMIN / CREATININE RATIO, URINE Lab Routine HTN, goal below 140/90 02/01/2024 10:52 AM EST Scheduled Procedures Name Priority Associated Diagnoses Date/Ti me COLONOSCOPY FLEXIBLE PROXIMAL DIAGNOSTIC Recall History of colon polyps Health Maintenance Due Date Last Done Comments Albumin/Creatinine Ratio 11/09/1969 Alpha-1 Antitrypsin 11/09/1969 Hepatitis C Screening 11/09/1969 Cologuard 11/09/1996 Sigmoidoscopy 11/09/1996 Fecal Occult Blood Test 09/11/2012 09/12/2011, 10/26 GFR 09/10/2023 09/09/2022, 08/04/2021, 11/23/2020, Additional history exists COVID-19 Vaccine ( [...] this encounter Medical Devices Implanted Type Area Agency Sales Management Assistant Device Identifier Shelf Expiration Date Model / Serial / Lot Lens Intraoc 19.0 - [id number] - [id number] Implanted:Qty: 1 on 06/02/2019 by Thomas Maxwell MD at OR [facility] Left: Eye BAUSCH & LOMB 12/28/2023 [id number] / [id number] / [id number] documented as of this encounter Visit Diagnoses Diagnosis HTN, goal below 140/90 Unspecified essential hypertension Dyslipidemia, goal LDL below 70 Other and unspecified hyperlipidemia documented in this encounter Advance Directives * Full Code (Latest Code Status on File) Date Activated Date Inactivated Comments 03/10/2008 1:11 PM 03/11/2008 5:46 PM Care Teams Marketing Communications Manager Relationship Specialty Start Date End Date Leandro Robles MD [address] [place] [address] [place] [address] PCP - General Family Medicine 12/18/16 documented as of this encounter
--- OUTSIDE RECORDS SUMMARY | 2024-03-27 19:50 | External Medical Summary | Summary of Care ---
Author Name Unknown Organization [facility] Address [address] [facility] [place] [address] Phone [phone] Care Team Providers Care Side Guider Name Role Phone Leandro Robles MD Primary Care Provide r Reason for Visit * Reason Onset Date Comments Test Results 02/02/2024 Encounter Details Date Type Department Care Team (Late st Contact Info) Description 02/02/2024 Telephone Cardiology, [facility] [address] [place] [address] Rogelio Verdin PA-C [address] [place] [address] Test Results Allergies Active Allergy Reactions Criticality Noted Date Comments Dextromethorphan Other (Please comment) 015 Breathlessness documented as of this encounter (statuses as of 03/25/2024) Medications polyethylene glycol 3350 (MIRALAX) 255 gram [...] THE MORNING 90 Tablet 3 4 Active Fluticasone-Salmete rol 115-21 MCG/ACT Inhalation Aerosol (Advair HFA) Inhale 2 Puffs by mouth in the morning and 2 Puffs before bedtime. 36 g 3 4 Active Atorvastatin Calcium 40 MG Oral Tablet (Lipitor)Indication s:Hyperlipidemia with target LDL less than 100,ASCVD (arteriosclerotic cardiovascular disease) TAKE 1 TABLET BY MOUTH EVERY DAY 90 Tablet 4 Active Sertraline HCl 25 MG Oral Tablet (Zoloft)Indications :Persistent insomnia,NATHALY (generalized anxiety disorder) TAKE 1 TABLET BY MOUTH EVERYDAY AT BEDTIME 90 Tablet 1 4 Active Metoprolol Succinate ER 25 MG Oral Tablet Extended Release 24 Hour (toPROL XL)Indications:PVC' s (premature ventricular contractions) TAKE 1 TABLET BY MOUTH EVERY DAY 90 Tablet 3 4 Active Hospital, Clinic, or Other Facility Administered Medication Ordered Dose Route Frequency Start Date End Date Status albuterol sulfate (PROVENTIL) (2.5 MG/3ML) 0.083% inhalation solution 2.5 mgIndications:COPD, mild (HCC) 2.5 mg NEBULIZER Q4H PRN 06/24/2017 Active documented as of this encounter (statuses as of 03/25/2024) Active Problems Problem Noted Date Diagnosed Date [...] as of this encounter (statuses as of 03/25/2024) Resolved Problems Problem Noted Date Diagnosed Date Resolved Date Epistaxis 06/18/2017 03/18/2019 Acute coronary syndrome 03/10/200805/29 [employer] Other*[id number] 03/10/2008 05/06/2016 Overview (05/12/2014): Study Title: Genomic Markers for Patients with Cardiovascular Disease Project # [id number] Accounting Professor: Colleen Cintron MD [phone] Alcohol dependence in remission 10/27/2003 06/18/2017 Tobacco use disorder 10/27/2003 008 Chronic prostatitis 10/21/2001 05/10/19 16 Achilles tendinitis 05/10/19 16 H. pylori infection 05/10/19 16 Overview (10/15/2009): treated COPD, moderate 06/09/2019 Overview: Per COPD GOLD Classification documented as of this encounter (statuses as of 03/25/2024) Immunizations Name Administration Dates Next Due COVID-19 [...] No 06/09/2023 Does the household have a [facility] source of income? (Household - for [...] encounter Miscellaneous Notes * Telephone Encounter - Lian Landaverde CMA - 02/05/2024 9:06 AM EST Pt stated he wasn't sure if he was taking Vitron C. States he will begin to take it if he is not already doing so. Pt stated that Rogelio wanted him to use Advair inhaler and asked for script. Pt stated he did not have rx for this. Upon further inspection, pt does have a prescription. Called pharmacy and asked if hestill had refills available. Rx had never been filled d/t generic not being covered by insurance. Brand name is covered. Pharmacy will fill rx and inform patient when available. No action needed by provider for this. * Telephone Encounter - Martínez Rosales OSA - 02/05/2024 8:25 AM EST Person calling: Pt Relationship to patient: Phone/Fax to return call: [phone] Reason for call(brief): test results Pharmacy: Provider Name:[place] Martinez Detailed message to office:Pt returning call in regards to test results. * Telephone Encounter - Lian Landaverde CMA - 02/04/2024 2:45 PM EST LMTRC * Telephone Encounter - Abril Reyes CMA - 02/02/2024 9:27 AM EST LMTRC * Telephone Encounter - Abril Reyes CMA - 02/02/2024 9:27 AM EST ----- Message from Rogelio Verdin sent at 02/02/2024 7:19 AM EST ----- Labs with very mild anemia. History of iron deficiency. Taking Vitron-C ? Additional labs requested (added to existing specimen) documented in this encounter Plan of Treatment Upcoming Encounters Date Type Department Care Team (Late st Contact Info) Description 05/17/2024 1:40 PM EST Office Visit [address] [phone] Leandro Robles MD [address] [place] [address] [place] [address] 06/10/2024 10:00 AM EDT Nurse Only Ancillary [address] [place] [address] [place], Nurse Annual Wellness [address] [place] [address] [place] [address] 01/23/2025 1:20 PM EDT Office Visit Family Medicine [address] [place] [phone] Leandro Robles MD [address] [place] [address] [place] [address] Scheduled Procedures Name Priority Associated Diagnoses Date/Ti [...] AAA Screening Completed 04/28/2017, 05/19/1998 Pneumococcal Vaccine: 50+ Years Completed 05/17/2019, 04/19/2017, 10/23/2011 RETIRED - [...] this encounter Medical Devices Implanted Type Area Contact Acid Plant Operator Helper Device Identifier Shelf Expiration Date Model / Serial / Lot Lens Intraoc 19.0 - [id number] - [id number] Implanted:Qty: 1 on 06/02/2019 by Thomas Maxwell MD at OR [facility] Left: Eye BAUSCH & LOMB 12/28/2023 [id number] / [id number] / [id number] documented as of this encounter Advance Directives * Full Code (Latest Code Status on File) Date Activated Date Inactivated Comments 03/10/2008 1:11 PM 03/11/2008 5:46 PM Care Teams Side Guider Relationship Specialty Start Date End Date Leandro Robles MD [address] [place] [address] [place] [address] PCP - General Family Medicine 12/18/16 documented as of this encounter
--- OUTSIDE RECORDS SUMMARY | 2024-03-27 19:50 | External Medical Summary | Summary of Care ---
Author Name Unknown Organization [facility] Address [address] [place] [facility] [place] [address] Phone [phone] Care Team Providers Care Warehouse Order Puller Name Role Phone Leandro Robles MD Primary Care Provide r Reason for Visit * Reason Comments eRx-Medication Refill Encounter Details Date Type Department Care Team (Late st Contact Info) Description 02/01/2024 Refill Family Medicine [address] [phone] Leandro Robles MD [address] [place] [address] [place] [address] Allergies Active Allergy Reactions Criticality Noted Date [...] Acute coronary syndrome 03/10/200805/29 [employer] Other*[id number] 03/10/2008 05/06/2016 Overview: Study Title: Genomic Markers for Patients with Cardiovascular Disease Project # [id number] Special Needs Babysitter: Colleen Cintron MD [phone] Alcohol dependence in remission 10/27/2003 06/18/2017 Tobacco [...] encounter Miscellaneous Notes * Telephone Encounter - Joanna Arce RPh - 02/02/2024 3:22 PM ESTRefused Prescriptions: Disp Refills Advair Diskus 250-50 MCG/ACT Inhalation Ae*60 Each3 Sig: INHALE1 PUFF BY MOUTH 2 TIMES A DAY.Refused By: TRU ARCEeason for Refusal: Course of treatmentcompleteReason for Refusal Comment: changed to advair HFA 11/22 Electronically signed by [facility] located [facility] at 02/02/2024 3:22 PM EST documented in this encounter Plan of Treatment Upcoming Encounters Date Type Department Care Team (Late st Contact Info) Description 05/17/2024 1:40 PM EST Office [address] [place] [phone] Leandro Robles MD [address] [place] [address] [place] [address] 06/10/2024 10:00 AM EDT Nurse Only Ancillary [address] [place] [address] [place], Nurse Annual Wellness [address] [place] [address] [place] [address] 01/23/2025 1:20 PM EDT Office Visit Family [address] [place] [phone] Leandro Robles MD [address] [place] [address] [place] [address] Scheduled Procedures Name Priority Associated Diagnoses Date/Ti [...] this encounter Medical Devices Implanted Type Area Valve Seater Operator Device Identifier Shelf Expiration Date Model / Serial / Lot Lens Intraoc 19.0 - [id number] - [id number] Implanted:Qty: 1 on 06/02/2019 by Thomas Maxwell MD at [facility] Left: Eye BAUSCH & LOMB 12/28/2023 [id number] / [id number] / [id number] documented as of this encounter Advance Directives * Full Code (Latest Code Status on File) Date Activated Date Inactivated Comments 03/10/2008 1:11 PM 03/11/2008 5:46 PM Care Teams Warehouse Order Puller Relationship Specialty Start Date End Date Leandro Robles MD [address] [place] [address] [place] [phone] PCP - General Family Medicine 12/18/16 documented as of this encounter
--- OUTSIDE RECORDS SUMMARY | 2024-03-27 19:50 | External Medical Summary ---
Author Name Unknown Address Unknown Organization K01[place] [place] [address] [facility] [place] [address] Laboratory Report Ordering Provider Test Date Status ANALISA JUDD 02/01/2024 10:52:10 Final Observation Date Value Abnormality Reference (Units ) Status Triglyceride 02/01/2024 10:52:10 47 <=174 ( mg/dL) Final Triglyceride Reference Range s (mg/dL):
<150 Acceptable
150-174 Borderline high
175-499 High
>=500 Very high Cholesterol 02/01/2024 10:52:10 84 <200 (mg /dL) Final Total Cholesterol Reference Ranges (mg/dL):
<200 Desirable
200-239 Borderline high
>=240 High HDL 02/01/2024 10:52:10 39 Below low normal >39 (mg/dL) Final HDL Cholesterol Reference Ra nges (mg/dL):
>=60 High (Desirable)
<50 Low (Undesirable) For Females
<40 Low (Undesirable) For Males NON-HDL CHOLESTEROL 02/01/2024 10:52:10 45 <=159 (mg/dL) Final Non-HDL Cholesterol Referenc e Range (mg/dL):
<100 Target level for high risk ASCVD patient
<130 Optimal for general population
130-159 Near optimal for general population
160-189 Borderline High
190-219 High
>=220 Very High LDL, (calculated) 02/01/2024 10:52:10 36 <= 129 (mg/dL) Final LDL Cholesterol Reference Ra nges (mg/dL):
<70 Target level for high risk ASCVD patient
<100 Optimal for general population
100-129 Near optimal for general population
130-159 Borderline high
160-189 High
>=190 Very high Performing Location [facility] [place] [address] [facility] [address]
--- OUTSIDE RECORDS SUMMARY | 2024-03-27 19:50 | External Medical Summary ---
Author Name Unknown Address Unknown Organization K01:[facility] [place] [address] [place] [address] Laboratory Report Ordering Provider Test Date Status ANALISA JUDD 02/01/2024 10:52:10 Final Observation Date Value Abnormality Reference (Units ) Status Vitamin B12 02/01/2024 10:52:10 135 337-5090 (pg/mL) Final Performing Location LAB[facility]ATORY [facility] - [address] [place] [address]
--- OUTSIDE RECORDS SUMMARY | 2024-03-27 19:50 | External Medical Summary ---
Author Name Unknown Address Unknown Organization K01:LAB[facility]ATORY [facility] - [address] [place] [address] Laboratory Report Ordering Provider Test Date Status NEPTALI JUDDO 02/01/2024 10:52:10 Final Observation Date Value Abnormality Reference (Units ) Status Magnesium 02/01/2024 10:52:10 2.1 1.5-2.6 (m g/dL) Final Performing Location LAB[facility]ATORY [facility] - [address] [place] [id number]
--- OUTSIDE RECORDS SUMMARY | 2024-03-27 19:51 | External Medical Summary | Summary of Care ---
Author Name Unknown Organization [facility] Address [address] [facility] [place] [address] Phone [phone] Care Team Providers Care Business Intelligence Engineer Name Role Phone Leandro Roblse MD Primary Care Provide r Reason for Visit * Reason Comments eRx-Medication Refill Encounter Details Date Type Department Care Team (Late st Contact Info) Description 01/13/2024 Refill Cardiology, [facility] [address] [place] [address] Dutch Hauser PA-C [address] [place] [address] Hyperlipidemia with target LDL less than 100; ASCVD (arteriosclerotic cardiovascular disease) Allergies Active Allergy Reactions Criticality Noted Date Comments Dextromethorphan Other (Please comment) 015 Breathlessness documented as of this encounter (statuses as of 01/16/2024) Medications Medication Sig Dispensed Refills Start Date [...] THE MORNING 90 Tablet 3 05/22/2023 Active Sertraline HCl 25 MG Oral Tablet (Zoloft)Indications: Persistent insomnia,NATHALY (generalized anxiety disorder) TAKE 1 TABLET BY MOUTH EVERYDAY AT BEDTIME 90 Tablet 10/19/2023 Active Fluticasone-Salmeter ol 115-21 MCG/ACT Inhalation Aerosol (Advair HFA) Inhale 2 Puffs by mouth in the morning and 2 Puffs before bedtime. 36 g 3 11/23/2023 Active Atorvastatin Calcium 40 MG Oral Tablet (Lipitor)Indications :Hyperlipidemia with target LDL less than 100,ASCVD (arteriosclerotic cardiovascular disease) TAKE 1 TABLET BY MOUTH EVERY DAY 90 Tablet 01/14/2024 Active Atorvastatin Calcium 40 MG Oral Tablet (Lipitor)Indications :Hyperlipidemia with target LDL less than 100,ASCVD (arteriosclerotic cardiovascular disease) TAKE 1 TABLET BY MOUTH EVERY DAY 90 Tablet 3 2022 4 Discontinued Hospital, Clinic, or Other Facility Administered Medication Ordered Dose Route Frequency Start Date End Date Status albuterol sulfate (PROVENTIL) (2.5 MG/3ML) 0.083% inhalation solution 2.5 mgIndications:COPD, mild (HCC) 2.5 mg NEBULIZER Q4H PRN 06/24/2017 Active documented as of this encounter (statuses as of 01/16/2024) Active Problems Problem Noted Date Diagnosed Date [...] as of this encounter (statuses as of 01/16/2024) Resolved Problems Problem Noted Date Diagnosed Date Resolved Date Epistaxis 06/18/2017 03/18/2019 Acute coronary syndrome 03/10/200805/29 [employer] Other*[id number] 03/10/2008 05/06/2016 Overview: Study Title: Genomic Markers for Patients with Cardiovascular Disease Project # [id number] Machinist Instructor: Colleen Cintron MD [phone] Alcohol dependence in remission 10/27/2003 06/18/2017 Tobacco use disorder 10/27/2003 008 Chronic prostatitis 10/21/2001 05/10/19 16 Achilles tendinitis 05/10/19 16 H. pylori infection 05/10/19 16 Overview: treated COPD, moderate 06/09/2019 Overview: Per COPD GOLD Classification documented as of this encounter (statuses as of 01/16/2024) Immunizations Name Administration Dates Next Due COVID-19 [...] the money to buy more. Never true 03/09/20 23 Within the past 12 months, t [...] encounter Miscellaneous Notes * Telephone Encounter - Mark Mike - 01/16/2024 6:31 AM EDT Received message from [facility] regarding patient needing labs. Patient was notified. Successfully contacted patient and provided [facility] message. * Telephone Encounter - Abimael White [facility] - 01/14/2024 1:31 PM EDTSigned Prescriptions: Disp Refills Atorvastatin Calcium 40 MG Oral Tablet (Li*90 Tab*0 Sig: TAKE 1 TABLET BY MOUTH EVERY DAY Authorizing Provider: DUTCH HAUSER Ordering User: ABIMAEL WHITE * Telephone Encounter - Abimael White [facility] - 01/14/2024 1:27 PM EDT Provided 90 days supply with 0 refill(s). Per refill protocol patient should have lipid panel on file within past year. Lab orders placed previously. Please contact patient to advise of labs ordered for blood draw. Recommend patient to fast if able for labs. Patient may still have water and regular medications. Advise to obtain labs before requesting the next refill. Abimael White, Pharm.D. Clinical Pharmacist [facility] ([facility]) 01/14/2024, 1:30 PM [phone] documented in this encounter Plan of Treatment Upcoming Encounters Date Type Department Care Team (Late st Contact Info) Description 05/17/2024 1:40 PM EST Office Visit [address] [phone] Leandro Robles MD [address] [place] [address] [place] [address] 06/10/2024 10:00 AM EDT Nurse Only Ancillary [address] [place] [address] [place], Nurse Annual Wellness [address] [place] [address] [place] [address] 01/23/2025 1:20 PM EDT Office Visit [address] [place] [phone] Leandro Robles MD [address] [place] [address] [place] [address] Scheduled Procedures Name Priority Associated Diagnoses Date/Ti [...] this encounter Medical Devices Implanted Type Area Supervisor Boatbuilders Wood Device Identifier Shelf Expiration Date Model / Serial / Lot Lens Intraoc 19.0 - [id number] - [id number] Implanted:Qty: 1 on 06/02/2019 by Thomas Maxwell MD at [facility] Left: Eye BAUSCH & LOMB 12/28/2023 [id number] / [id number] / [id number] documented as of this encounter Visit Diagnoses Diagnosis Hyperlipidemia with target LDL less than 100 Other and unspecified hyperlipidemia ASCVD (arteriosclerotic cardiovascular disease) Unspecified cardiovascular disease documented in this encounter Advance Directives * Full Code (Latest Code Status on File) Date Activated Date Inactivated Comments 03/10/2008 1:11 PM 03/11/2008 5:46 PM Care Teams Business Intelligence Engineer Relationship Specialty Start Date End Date Leandro Robles MD [address] [place] [address] [place] [address] PCP - General Family Medicine 12/18/16 documented as of this encounter
--- OUTSIDE RECORDS SUMMARY | 2024-03-27 19:51 | External Medical Summary | Summary of Care ---
Author Name Unknown Organization [facility] Address [address] [place] [address] Phone [phone] Care Team Providers Care Breaker Mechanic Name Role Phone Leandro Robles MD Primary Care Provide r Encounter Details Date Type Department Care Team (Late st Contact Info) Description 2023 Orders Only PATIENT PORTAL DO NOT DELETE THIS DEPT USED BY [place] [id number] Allergies Active Allergy Reactions Criticality Noted Date Comments Dextromethorphan Other (Please comment) 015 Breathlessness documented as of this encounter (statuses as of 2023) Medications Medication Sig Dispensed Refills Start Date [...] and 1 Tablet before bedtime. 04/22/2022 Active Advair Diskus 250-50 MCG/ACT Inhalation Aerosol Powder Breath Activated (Fluticasone-Salmetero l)Indications:COPD, group B, by GOLD 2017 classification (HCC) INHALE 1 PUFF BY MOUTH 2 TIMES A DAY. 60 Each 3 07/25/2022 Active Iron-Vitamin C 65-125 MG Oral Tablet (Vitron C) Take 1 Tablet by mouth once a day on Thursday, Thursday, and Thursday only. Active Atorvastatin Calcium 40 MG Oral Tablet (Lipitor)Indications:H yperlipidemia with target LDL less than 100,ASCVD (arteriosclerotic cardiovascular disease) TAKE 1 TABLET BY MOUTH EVERY DAY 90 Tablet 3 2022 Active Metoprolol Succinate ER 25 MG Oral [...] EVERYDAY AT BEDTIME 90 Tablet 10/19/2023 Active Hospital, Clinic, or Other Facility Administered Medication Ordered Dose Route Frequency Start Date End Date Status albuterol sulfate (PROVENTIL) (2.5 MG/3ML) 0.083% inhalation solution 2.5 mgIndications:COPD, mild (HCC) 2.5 mg NEBULIZER Q4H PRN 06/24/2017 Active documented as of this encounter (statuses as of 2023) Active Problems Problem Noted Date Diagnosed Date [...] as of this encounter (statuses as of 2023) Resolved Problems Problem Noted Date Diagnosed Date Resolved Date Epistaxis 06/18/2017 03/18/2019 Acute coronary syndrome 03/10/200805/29 [employer] Other*[id number] 03/10/2008 05/06/2016 Overview: Study Title: Genomic Markers for Patients with Cardiovascular Disease Project # [id number] Replacer: Colleen Cintron MD [phone] Alcohol dependence in remission 10/27/2003 06/18/2017 Tobacco use disorder 10/27/2003 008 Chronic prostatitis 10/21/2001 05/10/19 16 Achilles tendinitis 05/10/19 16 H. pylori infection 05/10/19 16 Overview: treated COPD, moderate 06/09/2019 Overview: Per COPD GOLD Classification documented as of this encounter (statuses as of 2023) Immunizations Name Administration Dates Next Due COVID-19 mRNA, LNP-s, No Pre serve, 2-Dose Series (Moderna) 06/09/2020,05/12/2020 COVID-19, mRNA, LNP-s, PF, B ooster, 100mcg/0.5mg (Moderna) 07/16/2021,02/14/2021 PPD 06/30/2017,01/11/2016 Pneumococcal Conjugate Vacc, 13 Valent (Prevnar) 04/19/2017 Pneumococcal Polysaccharide PPV23 (Pneumovax) 05/17/2019,10/23/2011 Season Influenza, Quad, PF, Adjuvanted, 65+ Yrs, IM (FLUAD) 03/07/2021,12/22/2019 Seasonal Influenza Virus Vac cine, Unspecified Formulation 12/22/2019 Seasonal Influenza, PF, 6 M & above, IM , (FluLaval or Fluzone) 01/12/2019,01/01/2018 Seasonal Influenza, Quadriva lent Hd (Fluzone Hd) 12/24/2022 Seasonal Influenza, Quadriva lent Hd, 65+ Yrs 02/24/2022 Seasonal Influenza, Split, I IV3, With Preserve, Inj 11/29/2015,05/10/2015,01/13/2014,12/28,12/29/2011,01/28/2011,02/18/2010 ,01/28/2009,04/11/2008,01/28/2007 Seasonal Influenza, Trivalen t, High Dose, No Preserve, IM 04/19/2017 TDAP (age 10 and older)(Boostrix) 04/08/2016 TDAP, [...] Care Team (Late st Contact Info) Description 11/26/2023 10:00 AM EDT Office Visit Family Medicine [address] [place] [phone] Fiona Briones PA-C [address] [place] [address] [place] [id number] 06/10/2024 10:00 AM EDT Nurse Only Ancillary [address] [place] [phone] [place], Nurse Annual Wellness [address] [place] [address] [place] [id number] Scheduled Procedures Name Priority Associated Diagnoses Date/Ti me COLONOSCOPY FLEXIBLE PROXIMAL DIAGNOSTIC Recall History of colon polyps Health Maintenance Due Date Last Done Comments Albumin/Creatinine Ratio 11/09/1969 Alpha-1 Antitrypsin 11/09/1969 Hepatitis C Screening 11/09/1969 Cologuard 11/09/1996 Sigmoidoscopy 11/09/1996 Fecal Occult Blood Test 09/11/2012 09/12/2011, 10/26 COVID-19 Vaccine ( season) 2023 01/09/2023, 07/16/2021, 02/14/2021, Additional history exists GFR 09/10/2023 09/09/2022, 04/2021, 11/23/2020, Additional history exists Influenza Vaccine (FLU shot) (#1) 2023 12/24/2022, 02/24/2022, 03/07/2021, Additional history exists Adult Wellness Visit 06/08/2024 06/09/2023, 06/05/2022, 06/03/2021 Depression Screening 06/08/2024 06/09/2023 O2 ASSESSMENT COMPLETED IN PAST YEAR FOR COPD 06/08/2024 06/09/2023 Colonoscopy 11/15/2026 11/15/2021, 10/28, 08/13/2016, Additional history exists Colorectal Cancer Screening 11/15/2026 DTaP,Tdap,and Td Vaccines (4 - Td or Tdap) 06/19/2028 06/19/2018, 04/08/2016, 02/03/2007 AAA Screening Completed 04/28/2017, 05/19/1998 Pneumococcal Vaccine: 65+ Years Completed 05/17/2019, 04/19/2017, 10/23/2011 RETIRED - COLONOSCOPY-EVERY 5 YRS AGES 18-100 Discontinued 11/15/2021, 11/15/2021, 08/13/2016, Additional history exists Zoster Vaccines Completed 03/03/2022, 02/27, 02/18/2014 HPV (Gardasil) Vaccine Aged Out No lo nger eligible based on patient's age to complete this topic Hepatitis B Vaccine Aged Out No longe r eligible based on patient's age to complete this topic MENINGOCOCCAL (MENACTRA/MENVEO) Aged Out No longer eligible based on patient's age to complete this topic documented as of this encounter Medical Devices Implanted Type Area Credit Compliance Officer Device Identifier Shelf Expiration Date Model / Serial / Lot Lens Intraoc 19.0 - [id number] - [id number] Implanted:Qty: 1 on 06/02/2019 by Thomas Maxwell MD at OR [facility] Left: Eye [employer] 12/28/2023 [id number] / [id number] / [id number] documented as of this encounter Advance Directives * Full Code (Latest Code Status on File) Date Activated Date Inactivated Comments 03/10/2008 1:11 PM 03/11/2008 5:46 PM Care Teams Breaker Mechanic Relationship Specialty Start Date End Date Leandro Robles MD [address] [place] [address] [place] [id number] PCP - General Family Medicine 12/18/16 documented as of this encounter
--- OUTSIDE RECORDS SUMMARY | 2024-03-27 19:51 | External Medical Summary | Summary of Care ---
Author Name Unknown Organization [facility] Address [address] [place] [address] Phone [phone] Care Team Providers Care Beauty Artist Name Role Phone Leandro Robles MD Primary Care Provide r Reason for Visit * Reason Onset Date Comments Re-Check Medication Administration 12/22/2023 Flu an d/or Pneumo Inj Encounter Details Date Type Department Care Team (Latest Contact Info) Description 12/22/2023 8:20 AM EDT Office Visit Family Medicine [address] [place] [phone] Fiona Briones PA-C [address] [place] [address] [place] [phone] HTN, goal below 140/90*; Need for prophylactic vaccination and inoculation against influenza; ASCVD (arteriosclerotic cardiovascular disease); COPD, group B, by GOLD 2017 classification ([facility]); Parkinson's disease, unspecified whether dyskinesia present, unspecified whether manifestations fluctuate ([facility]); S/P angioplasty with stent; Iron deficiency anemia, unspecified iron deficiency anemia type; Hyperlipidemia with target LDL less than 100; NATHALY (generalized anxiety disorder); Irritable bowel syndrome with constipation; Gastroesophageal reflux disease without esophagitis Allergies Active Allergy Reactions Criticality Noted Date Comments Dextromethorphan Other (Please comment) 015 Breathlessness documented as of this encounter (statuses as of 12/22/2023) Medications Medication Sig Dispensed Refills Start Date [...] EVERYDAY AT BEDTIME 90 Tablet 10/19/2023 Active Fluticasone-Salmeterol 115-21 MCG/ACT Inhalation Aerosol (Advair HFA) Inhale 2 Puffs by mouth in the morning and 2 Puffs before bedtime. 36 g 3 11/23/2023 Active Hospital, Clinic, or Other Facility Administered Medication Ordered Dose Route Frequency Start Date End Date Status albuterol sulfate (PROVENTIL) (2.5 MG/3ML) 0.083% inhalation solution 2.5 mgIndications:COPD, mild (HCC) 2.5 mg NEBULIZER Q4H PRN 06/24/2017 Active documented as of this encounter (statuses as of 12/22/2023) Active Problems Problem Noted Date Diagnosed Date [...] as of this encounter (statuses as of 12/22/2023) Resolved Problems Problem Noted Date Diagnosed Date Resolved Date Epistaxis 06/18/2017 03/18/2019 Acute coronary syndrome 03/10/200805/29 [employer] Other*[id number] 03/10/2008 05/06/2016 Overview: Study Title: Genomic Markers for Patients with Cardiovascular Disease Project # [id number] Surface Water Manager: Colleen Cintron MD [phone] Alcohol dependence in remission 10/27/2003 06/18/2017 Tobacco use disorder 10/27/2003 008 Chronic prostatitis 10/21/2001 05/10/19 16 Achilles tendinitis 05/10/19 16 H. pylori infection 05/10/19 16 Overview: treated COPD, moderate 06/09/2019 Overview: Per COPD GOLD Classification documented as of this encounter (statuses as of 12/22/2023) Immunizations Name Administration Dates Next Due COVID-19 [...] lent Hd, 65+ Yrs 02/24/2022 Seasonal Influenza, Trivalen t, (IIV3), with Preserv, (Fluzone) 11/29/2015,05/10/2015,01/13/2014,12/28,12/29/2011,01/28/2011,02/18/2010 ,01/28/2009,04/11/2008,01/28/2007 TDAP (age 10 and older)(Boostrix) 04/08/2016 TDAP, [...] on file documented as of this encounter Last Filed Vital Signs Vital Sign Reading Time Taken Comments Blood Pressure 122/70 12/22/2023 8:02 AM EDT Pulse 71 12/22/2023 8:02 AM EDT Temperature 36.4 C (97.6 F) 12/22/2023 8:02 AM ED T Respiratory Rate 16 12/22/2023 8:02 AM EDT Oxygen Saturation 99% 12/22/2023 8:02 AM EDT Inhaled Oxygen Concentration - - Weight 71.2 kg (157 lb) 12/22/2023 8:02 AM EDT Height 170.2 cm (5' 7") 12/22/2023 8:02 AM EDT Body Mass Index 24.59 12/22/2023 8:02 AM EDT documented in this encounter Progress Notes * Fiona Briones PA-C - 12/22/2023 8:07 AM EDT Nursing Notes: Halle Arellano RN 12/22/23 0806 Sign at exiting of workspace Here for check up Pt here today for recheck. Pt with PMH of COPD, CAD, GERD, HTN, dyslipidemia, Parkinson's, anxiety,IBS, iron def anemia. Pt due for labs - already futured. Pt has no issues at this time. Review of patient's allergies indicates: Allergen Reactions Delsym [Dextromethorphan] Other (Please comment) Breathlessness Current Outpatient Medications Medication Sig Dispense Refill polyethylene glycol 3350 (MIRALAX) 255 gram powder TAKE 1 CAPFUL (17 G) BY MOUTH 2 TIMES A DAY MIXED IN JUICE, TO EFFECT 1 STOOL PER DAY 255 g 3 Nitroglycerin 0.4 MG Sublingual Tablet Sublingual (Nitrostat) TAKE 1 TABLET UNDER THE TONGUE EVERY 5 MINUTES FOR A MAXIMUM OF THREE DOSES FOR CHEST PAIN/PRESSURE 25 Tab 5 Aspirin EC 81 MG Oral Tablet Delayed Release Take 1 Tablet by mouth in the morning. Takes on occasion. Carbidopa-Levodopa 25-250 MG Oral Tablet (Sinemet) Take 1 Tablet by mouth in the morning and 1 Tablet at noon and 1 Tablet before bedtime. Iron-Vitamin C 65-125 MG Oral Tablet (Vitron C) Take 1 Tablet by mouth once a day on Thursday, Thursday, and Thursday only. Metoprolol Succinate ER 25 MG Oral Tablet Extended Release 24 Hour (toPROL XL) TAKE 1 TABLET BY MOUTH EVERY DAY 90 Tablet 3 Pantoprazole Sodium 40 MG Oral Tablet Delayed Release (Protonix) TAKE 1 TABLET BY MOUTH EVERY DAY IN THE MORNING 90 Tablet 3 Sertraline HCl 25 MG Oral Tablet (Zoloft) TAKE 1 TABLET BY MOUTH EVERYDAY AT BEDTIME 90 Tablet 0 Fluticasone-Salmeterol 115-21 MCG/ACT Inhalation Aerosol (Advair HFA) Inhale 2 Puffs by mouth in the morning and 2 Puffs before bedtime. 36 g 3 Atorvastatin Calcium 40 MG Oral Tablet (Lipitor) TAKE 1 TABLET BY MOUTH EVERY DAY 90 Tablet 3 Current Facility-Administered Medications Medication Dose Route Frequency Provider Last Rate Last Admin albuterol sulfate (PROVENTIL) (2.5 MG/3ML) 0.083% inhalation solution 2.5 mg 2.5 mg Nebulizer Q4H PRN Leandro Robles MD 2.5 mg at 07/03/17 1055 Past Medical History: Diagnosis Date Achilles tendinitis COPD, mild (HCC) 05/28/2013 PFT normal but c/w mild COPD clinically Coronary atherosclerosis of [place] coronary artery 03/10/2008 EF 45% with inferior and apical akinesis, 80% 2nd obtuse marginal, 30% RCA Coronary atherosclerosis of [place] coronary artery 06/05/2008 admitted to [facility] because of chest pain during cardiac rehab Epistaxis 09/27/2002 Dr La, [facility], had to cut a vessel in neck, endoscopic septoplasty, uvula surgery Epistaxis 08/02/2008 persistent right sided epistaxis, [facility] Esophageal reflux H. pylori infection 03/30/2009 treated History of tobacco use HTN, goal below 140/90 06/18/2017 Hyperlipidemia LDL goal < 100 Impotence of organic origin Iron deficiency anemia 06/29/2011 ?angiodysplactic lesions on scopes Mixed dyslipidemia 01/30/2007 CHOL 202, HDL 40, LDL 131 TRIG 155 GLUCOSE 103 NASAL PERFORATION Parkinson's disease (HCC) 05/01/2021 dx recently, pt does see [facility] Samir [facility] Personal history of poliomyelitis Raynaud's syndrome 03/30/2000 Tobacco use disorder quit 01/2007 Social History Socioeconomic History Marital status: Spouse name: Not on file Number of children: 1 Years of education: Not on file Highest education level: Not on file Occupational History Not on file Tobacco Use Smoking status: Former Current packs/day: 0.00 Average packs/day: 2.0 packs/day for 40.0 years (80.0 ttl pk-yrs) Types: Cigarettes Start date: 01/28/1962 Quit date: 01/28/2002 Years since quittin.9 Smokeless tobacco: Never Vaping Use Vaping status: Never Used Substance and Sexual Activity Alcohol use: No Comment: quit drinking 2001 Drug use: No Sexual activity: Not on file Other Topics Concern Service Not Asked Blood Transfusions No Caffeine Concern Not Asked Occupational Exposure Not Asked Hobby Hazards Not Asked Sleep Concern Not Asked Stress Concern Not Asked Weight Concern Not Asked Special Diet Yes Back Care Not Asked Exercise Not Asked Bike Helmet Not Asked Seat Belt Yes Self-Exams Not Asked Social History Narrative , 52yo as of 06/09/2023 Social Determinants of Health Financial Resource Strain: Low Risk (06/09/2023) Financial Resource Strain Do you have any trouble paying for your medications, or do you think you might in the future? (Adult - for ages 18 years and over): No Does your family have trouble paying for medicine? (Household - for ages 0-17 years): Not on file Food Insecurity: No Food Insecurity (06/09/2023) Food Insecurity Do you need food for this week? (Adult - for ages 18 years and over): No Are you able to get enough food for your family? (Household - for ages 0-17 years): Not on file Does your family need food this week? (Household - for ages 0-17 years): Not on file Do you always have enough food for your family? (Household - for ages 0-17 years): Not on file Transportation Needs: No Transportation Needs (06/09/2023) Transportation Needs Do you have trouble getting a ride to medical visits or work? (Adult - for ages 18 years and over):Never True Does your family have a hard time getting a ride to doctors visits? (Household - for ages 0-17 years): Not on file Has lack of transportation kept you from medical appointments, meetings, work, or from getting things needed for daily living? Check all that apply. (Adult - for ages 18 years and over): Not on file Do you (or your family) have trouble finding or paying for a ride (transportation)? (Household - for ages 0-17 years): Not on file Social Connections: Socially Integrated (06/09/2023) Social Connections How often do you feel lonely or isolated from those around you? (Adult - for ages 18 years and over): Never Housing Stability: Low Risk (06/09/2023) Housing Stability Do you currently live in a long term or have no steady place to sleep at night? (Adult - for ages 18 years and over): No Do you think you are at risk of becoming homeless? (Adult - for ages 18 years and over): No Does your family worry about paying for your home or becoming homeless? (Household - for ages 0-17 years): Not on file Are you homeless or worried that you might be in the future? (Adult - for ages 18 years and over): Not on file Are you (or your family) homeless or worried that you might be in the future? (Household - for ages0-17 years): Not on file O:Blood pressure 122/70, pulse 71, temperature 36.4 C (97.6 F), resp. rate 16, height 1.702 m (5' 7"), weight 71.2 kg (157 lb), SpO2 99%. GENERAL: alert, healthy, and no distress NECK: supple, no adenopathy, no bruits, thyroid normal size, non-tender, without nodularity EYES: PERRLA, conjunctiva are pink and non-injected, sclera clear EARS: External ears normal, Canals clear, TM's Normal NOSE: no mucosal erythema, no mucosal edema, no purulent discharge OROPHARYNX: no exudate, no erythema, lips, buccal mucosa, and tongue normal, and mucous membranes are moist HEART: regular rate & rhythm, no murmur, and no gallops LUNGS: chest symmetric with normal AP diameter, no chest deformities noted, no chest wall tenderness, lungs clear to auscultation EXTREMITIES: no edema A:HTN, goal below 140/90 (Primary) - ALBUMIN / CREATININE RATIO, URINE; Future; Expected date: 12/22/2023 Need for prophylactic vaccination and inoculation against influenza ASCVD (arteriosclerotic cardiovascular disease) COPD, group B, by GOLD 2017 classification ([facility]) Parkinson's disease, unspecified whether dyskinesia present, unspecified whether manifestations fluctuate ([facility]) S/P angioplasty with stent Iron deficiency anemia, unspecified iron deficiency anemia type Hyperlipidemia with target LDL less than 100 NATHALY (generalized anxiety disorder) Irritable bowel syndrome with constipation Gastroesophageal reflux disease without esophagitis Other orders - INFLUENZA VAC., TRIVALENT, HD, PF, 65 AND ABOVE, 0.5 ML IM (FLUZONE HD) Continue current meds. Any questions/problems, please call. If anything changes, worsens, develops new sx, please call [facility]. Follow-up: Return if symptoms worsen or fail to improve. | Check-out note: Needs 6-[address] Margaret Briones PA-C * Halle Arellano RN - 12/22/2023 8:06 AM EDT PRE - ADMINISTRATION DOCUMENTATION Are you experiencing any cold symptoms or fever? No Have you had Guillain-[place] Syndrome (an illness that causes paralysis) within the last 6 weeks? No Have you had the flu shot in the past? YES Have you ever had a reaction to the flu shot? No Halle Arellano RN, 12/22/2023 8:06 AM Immunization Administration Documentation Time Out Procedure Performed: Yes Patient Identified (Ask Name/Date of ): Yes Does the patient have a fever greater than 101 degrees today? No Patient allergic to latex? No VFC Stock: No Immunization(s) verified: Yes, Immunization Name: Flu, VIS Sheet(s) given: Yes Verified Side and Site: Yes Verified Shot(s) with Parent(s)/Patient: Yes documented in this encounter Nursing Notes * Halle Arellano RN - 12/22/2023 8:05 AM EDT Here for check up documented in this encounter Plan of Treatment Upcoming Encounters Date Type Department Care Team (Late st Contact Info) Description 05/17/2024 1:40 PM EST [address] [place] [phone] Leandro Robles MD [address] [place] [address] [place] [id number] 06/10/2024 10:00 AM EDT Nurse Only Ancillary [address] [place] [phone] [place], Nurse Annual [address] [place] [phone] 01/23/2025 1:20 PM EDT Office Visit [address] [place] [phone] Leandro Robles MD [address] [place] [address] [place] [id number] Scheduled Orders Name Type Priority Associated Diagnoses Orde r Schedule ALBUMIN / CREATININE RATIO, URINE Lab Routine HTN, goal below 140/90 Expected: 12/22/2023 (Approximate), Expires: 12/21/2024 Scheduled Procedures Name Priority Associated Diagnoses Date/Ti [...] this encounter Medical Devices Implanted Type Area Floor Steward/Stewardess Device Identifier Shelf Expiration Date Model / Serial / Lot Lens Intraoc 19.0 - [id number] - [id number] Implanted:Qty: 1 on 06/02/2019 by Thomas Maxwell MD at OR [facility] Left: Eye [employer] 12/28/2023 [id number] / [id number] / [id number] documented as of this encounter Visit Diagnoses Diagnosis HTN, goal below 140/90- Primary Unspecified essential hypertension Need for prophylactic vaccination and inoculation against influenza ASCVD (arteriosclerotic cardiovascular disease) Unspecified cardiovascular disease COPD, group B, by GOLD 2017 classification ([facility]) Parkinson's disease, unspecified whether dyskinesia present, unspecified whether manifestations fluctuate ([facility]) S/P angioplasty with stent Postsurgical percutaneous transluminal coronary angioplasty status Iron deficiency anemia, unspecified iron deficiency anemia type Hyperlipidemia with target LDL less than 100 Other and unspecified hyperlipidemia NATHALY (generalized anxiety disorder) Generalized anxiety disorder Irritable bowel syndrome with constipation Irritable bowel syndrome Gastroesophageal reflux disease without esophagitis Esophageal reflux documented in this encounter Advance Directives * Full Code (Latest Code Status on File) Date Activated Date Inactivated Comments 03/10/2008 1:11 PM 03/11/2008 5:46 PM Care Teams Beauty Artist Relationship Specialty Start Date End Date Leandro Robles MD [address] [place] [address] [place] [id number] PCP - General Family Medicine 12/18/16 documented as of this encounter
--- OUTSIDE RECORDS SUMMARY | 2024-03-27 19:51 | External Medical Summary | Summary of Care ---
Author Name Unknown Organization [facility] Address [address] [facility] [place] [address] Phone [phone] Care Team Providers Care Airport Ramp Agent Name Role Phone Leandro Robles MD Primary Care Provide r Reason for Visit * Reason Comments Follow Up Encounter Details Date Type Department Care Team (Latest Contact Info) Description 11/05/2023 3:30 PM EDT Office Visit Cardiology [address] [place] [id number] Rogelio Verdin PA-C [address] [place] [address] ASCVD (arteriosclerotic cardiovascular disease)*; Ischemic cardiomyopathy; HTN, goal below 140/90; S/P angioplasty with stent; Dyslipidemia, goal LDL below 70 Allergies Active Allergy Reactions Criticality Noted Date Comments Dextromethorphan Other (Please comment) 015 Breathlessness documented as of this encounter (statuses as of 11/08/2023) Medications Medication Sig Dispensed Refills Start Date [...] as of this encounter (statuses as of 11/08/2023) Active Problems Problem Noted Date Diagnosed Date [...] as of this encounter (statuses as of 11/08/2023) Resolved Problems Problem Noted Date Diagnosed Date Resolved Date Epistaxis 06/18/2017 03/18/2019 Acute coronary syndrome 03/10/200805/29 [employer] Other*[id number] 03/10/2008 05/06/2016 Overview: Study Title: Genomic Markers for Patients with Cardiovascular Disease Project # [id number] Matzo Forming Machine Operator: Colleen Cintron MD [phone] Alcohol dependence in remission 10/27/2003 06/18/2017 Tobacco use disorder 10/27/2003 008 Chronic prostatitis 10/21/2001 05/10/19 16 Achilles tendinitis 05/10/19 16 H. pylori infection 05/10/19 16 Overview: treated COPD, moderate 06/09/2019 Overview: Per COPD GOLD Classification documented as of this encounter (statuses as of 11/08/2023) Immunizations Name Administration Dates Next Due COVID-19 [...] Sign Reading Time Taken Comments Blood Pressure 142/86 11/05/2023 3:34 PM EDT Pulse 68 11/05/2023 3:34 PM EDT Temperature - - Respiratory Rate 14 11/05/2023 3:34 PM EDT Oxygen Saturation - - Inhaled Oxygen Concentration - - Weight 71.7 kg (158 lb) 11/05/2023 3:34 PM EDT Height - - Body Mass Index 24.75 06/09/2023 10:22 AM EDT documented in this encounter Progress Notes * Rogelio Verdin PA-C - 11/05/2023 3:42 PM EDT History of Present Illness: Ryder Berg is a 72 year old male here today for routine cardiology follow-up. Mr. Berg continues to play Spiralcat ball three days per week at the [facility] with Dr. Smith without difficulty. He notes one interim mechanical fall, tripping on a clump of grass growing out of the sidewalk at the [facility]. Notes not taking Advair due to cost. No activity related chest pain, tachypalpitations, fluid retention, recent epistaxis, hemoptysis, melena or hematochezia. Cardiac Problem list: ASCVD Prior coronary intervention of the left circumflex obtuse marginal in 2007 for crescendo angina. Repeat cardiac catheterization after abnormal stress testing & complaints of exertion fatigue, September 2014, demonstrating patent left circumflex stent, moderate nonobstructive narrowing of 50% of the mid right coronary artery. Mild ischemic cardiomyopathy. Hypertension. Hyperlipidemia. Frequent premature ventricular complexes Patient Active Problem List Diagnosis IMPOTENCE, ORGANIC ORIGN Raynaud's syndrome ASCVD (arteriosclerotic cardiovascular disease) S/P angioplasty with stent Esophageal reflux Iron deficiency anemia Angiodysplasia Allergic rhinitis Constipation Hyperlipidemia with target LDL less than 100 Persistent insomnia NATHALY (generalized anxiety disorder) HTN, goal below 140/90 Irritable bowel syndrome with constipation Mild sleep apnea COPD, group B, by GOLD 2017 classification (HCC) Parkinson disease (HCC) Vitamin D deficiency Past Medical History: Diagnosis Date Achilles tendinitis COPD, mild (HCC) 05/28/2013 PFT normal but c/w mild COPD clinically Coronary atherosclerosis of [place] coronary artery 03/10/2008 EF 45% with inferior and apical akinesis, 80% 2nd obtuse marginal, 30% RCA Coronary atherosclerosis of [place] coronary artery 06/05/2008 admitted to [facility] because of chest pain during cardiac rehab Epistaxis 09/27/2002 Dr La, [facility], had to cut a vessel in neck, endoscopic septoplasty, uvula surgery Epistaxis 08/02/2008 persistent right sided epistaxis, [facility] Esophageal reflux H. pylori infection 03/30/2009 treated History of tobacco use HTN, goal below 140/90 06/18/2017 Hyperlipidemia LDL goal < 100 Impotence of organic origin Iron deficiency anemia 06/29/2011 ?angiodysplactic lesions on scopes Mixed dyslipidemia 01/30/2007 CHOL 202, HDL 40, LDL 131 TRIG 155 GLUCOSE 103 NASAL PERFORATION Parkinson's disease (HCC) 05/01/2021 dx recently, pt does see Dr. Samir Spencer [facility] Personal history of poliomyelitis Raynaud's syndrome 03/30/2000 Tobacco use disorder quit 01/2007 Past Surgical History: Procedure Laterality Date CARDIAC CATHERIZATION.EDU 10/18/2009 [facility] CATHETER OCCLUSION/EMBOLIZATION 08/02/2008 [facility] for nosebleeds COLONOSCOPY, DIAGNOSTIC (RECTUM) 05/30/2009 normal colon exam repeat in 10 years COLONOSCOPY, DIAGNOSTIC (RECTUM) 08/29/2011 angiodysplastic lesion coagulated, performed by AALIYAH DRISCOLL at [facility] COLONOSCOPY, DIAGNOSTIC (RECTUM) 09/06/2015 adenomatous polyps, lipoma, poor prep, repeat 1 yr/[facility] COLONOSCOPY, DIAGNOSTIC (RECTUM) 08/13/2016 adenomatous polyp, repeat 5 yrs/COLONOSCOPY FLEXIBLE PROXIMAL DIAGNOSTIC performed by Dequan Vanegas DO at END[facility]COPY [facility] COLONOSCOPY, DIAGNOSTIC (RECTUM) 11/15/2021 1-5mm in sigmoid, internal hemorrhoids / biopsies benign adenomatous polyp / 5 yea recall / COLONOSCOPY FLEXIBLE PROXIMAL DIAGNOSTIC performed by Dequan Vanegas DO at [facility] CORONARY ARTERY DILATION, BALLOON 03/10/2008 PTCA, SINGLE VESSEL performed by CARDIAC WREATH MAKER PAWEL at [facility] CT CHEST W CONTRAST 06/22/2013 small nodes in lung and diego, vascular area in liver. CT SINUSES WO CONTRAST 09/06/2007 postoperative changes, mild paranasal sinus thickening. CXR 2 VIEWS AP/PA & LATERAL 05/15/2004 pah-normal chest, EGD, FLEXIBLE, DIAGNOSTIC 08/29/2011 angiodysplastic lesions coagulated EGD, FLEXIBLE, DIAGNOSTIC 08/29/2011 UPPER GI ENDOSCOPY DIAGNOSTIC performed by AALIYAH DRISCOLL at END[facility]COPY [facility] EGD, FLEXIBLE, DIAGNOSTIC 06/09/2016 inflammatory changes on bx/ESOPHAGOGASTRODUODENOSCOPY (EGD), FLEXIBLE, TRANSORAL, DIAGNOSTIC performed by Dequan Vanegas DO at [facility]COPY [facility] EGD, FLEXIBLE, DIAGNOSTIC 06/17/2016 gastritis, scarring from previous bx/ESOPHAGOGASTRODUODENOSCOPY (EGD), FLEXIBLE, TRANSORAL, DIAGNOSTIC performed by Dequan Vanegas DO at END[facility]COPY [facility] EGD, FLEXIBLE, W/BIOPSY 10/22/2009 [address] OTHER endoscopic sinus surgery, control of epistaxis (?vessel ligation), uvulectomy PLACE INTRACORONARY STENT, FIRST VS 03/10/2008 bare metal stent in 2nd Obtuse marginal, 80%-0%, Dr Velasquez REMOVAL OF TONSILS, UNDER AGE 12 REMOVE CATARACT, INSERT LENS PROSTH right REMOVE CATARACT, INSERT LENS PROSTH Left 06/02/2019 left EXTRACAPSULAR CATARACT REMOVAL WITH INTRAOCULAR LENS performed by Thomas Maxwell MD at OR [facility] REMOVE INTRANASAL LESION Right 09/27/2020 EXCISION OR DESTRUCTION INTRANASAL LESION INTERNAL APPROACH performed by Michael Hernandez DO at [facility] REPAIR BICEPS TENDON RUPTURE 05/2002 [facility], left biceps, [facility] SINUS SURGERY PROCEDURE NEC 09/22/2012 [facility] SINUS SURGERY PROCEDURE NEC 01/27/2014 Mario STRESS ECHO (EXERCISE) 06/05/2008 Dr Lilly, LVEF 45-50%, LV wall thickness normal, VASC DUPLEX CAROTID BILAT 09/30/2011 less than 50% stenosis, both carotids. XR C SPINE 4-5 VIEWS 05/15/2004 pah-degenerative osteoarthritis with disc degeneration, no fx or subluxation. Family History Problem Relation Name Age of Onset Other (polio [Other]) Mother Other (brain cancer [Other]) Father Other (CVA [Other]) Father Neurological Disorder Daughter blind, Lebers syndrome Social History Tobacco Use Smoking status: Former Smoker Packs/day: 2.00 Years: 40.00 Pack years: 80.00 Types: Cigarettes Last attempt to quit: 01/28/2002 Years since quittin.0 Smokeless tobacco: Never Used Substance Use Topics Alcohol use: No Drug use: No x 50 years Review of patient's allergies indicates: Allergen Reactions Delsym [Dextromethorphan] Other (Please comment) Breathlessness Current Outpatient Medications Medication Sig Dispense Refill Sertraline HCl 25 MG Oral Tablet (Zoloft) TAKE 1 TABLET BY MOUTH EVERYDAY AT BEDTIME 90 Tablet 0 Pantoprazole Sodium 40 MG Oral Tablet Delayed Release (Protonix) TAKE 1 TABLET BY MOUTH EVERY DAY IN THE MORNING 90 Tablet 3 Metoprolol Succinate ER 25 MG Oral Tablet Extended Release 24 Hour (toPROL XL) TAKE 1 TABLET BY MOUTH EVERY DAY 90 Tablet 3 Atorvastatin Calcium 40 MG Oral Tablet (Lipitor) TAKE 1 TABLET BY MOUTH EVERY DAY 90 Tablet 3 Iron-Vitamin C 65-125 MG Oral Tablet (Vitron C) Take 1 Tablet by mouth once a day on Thursday, Thursday, and Thursday only. Advair Diskus 250-50 MCG/ACT Inhalation Aerosol Powder Breath Activated (Fluticasone-Salmeterol) INHALE 1 PUFF BY MOUTH 2 TIMES A DAY. 60 Each 3 Carbidopa-Levodopa 25-250 MG Oral Tablet (Sinemet) Take 1 Tablet by mouth in the morning and 1 Tablet at noon and 1 Tablet before bedtime. Aspirin EC 81 MG Oral Tablet Delayed Release Take 1 Tablet by mouth in the morning. Takes on occasion. Nitroglycerin 0.4 MG Sublingual Tablet Sublingual (Nitrostat) TAKE 1 TABLET UNDER THE TONGUE EVERY 5 MINUTES FOR A MAXIMUM OF THREE DOSES FOR CHEST PAIN/PRESSURE 25 Tab 5 polyethylene glycol 3350 (MIRALAX) 255 gram powder TAKE 1 CAPFUL (17 G) BY MOUTH 2 TIMES A DAY MIXED IN JUICE, TO EFFECT 1 STOOL PER DAY 255 g 3 Current Facility-Administered Medications Medication Dose Route Frequency Provider Last Rate Last Admin albuterol sulfate (PROVENTIL) (2.5 MG/3ML) 0.083% inhalation solution 2.5 mg 2.5 mg Nebulizer Q4H PRN Leandro Robles MD 2.5 mg at 07/03/17 1055 PHYSICAL EXAMINATION: BP 142/86 | Pulse 68 | Resp 14 | Wt 71.7 kg (158 lb) | BMI 24.75 kg/m | BSA 1.84 m General: A&Ox3. AND. HENT: Normocephalic. Atraumatic. Eyes: PER. Conjunctiva pink, sclera clear. Neck: No carotid bruits. No JVD. Heart: RRR, 70 bpm. No ectopy. No murmur. PMI is nondisplaced. Lungs: Diminished. + Diffuse expiratory wheeze. Abdomen: +BS. Soft. Nontender. No masses or organomegaly. Extremities: No clubbing, cyanosis, or edema. Limited neurological examination: Masked faces. Mild bradykinesia. Pulses: radial=2/4, posterior tibial=2/4. Data: April 28, 2017 US AAA Screen: There is no evidence of an abdominal aortic aneurysm. September 09, 2018 TTE Interpretation Summary (as per Dr. Chopra): Compared to last available study changes are noted as follows: LV systolic function has improved. Mildly dilated LV chamber size with normal wall thickness. Mildly reduced LV systolic function, EF 45-50%. Mild to moderate hypokinesis ofthe anterior, anteroseptal and inferoseptal au, otherwise, normal wall motion. Grade II diastolic dysfunction. Trace mitral regurgitation. March 02, 2019 Lexiscan Interpretation Summary (as per Dr. Webber): Lexiscan nuclear stress test is positive for myocardial scar involving the base, mid, apical inferior wall without significant espinoza-infarct ischemia. Abnormal gated SPECT imaging demonstrating inferior wall hypokinesis. The LV ejection fraction is calculated at 45%. Compared to prior study dated July 11, 2015. There is no significant change. April 04, 2021 TTE Interpretation Summary (as per Dr. Patrick): There was sinus bradycardia with premature ventricular beats during the examination. The left ventricular cavity size is mildly enlarged. There is mild diffuse hypokinesis with focal with hypokinesis of the inferior wall and apical inferior septum. The qualitative LV ejection fraction is 45-49% (mildly reduced). The left ventricular diastolic function is mildly abnormal (grade I). Compared to prior study of September 09, 2018, there is no significant change. EKG performed on October 14, 2022 personally reviewed, revealed sinus bradycardia 59 bpm with diffuse nonspecific ST-T wave changes. When compared to prior available tracings, there was no significant change. November 06, 2022 TTE Interpretation Summary (as per Dr. Ambrocio): There was sinus bradycardia during the examination. The left ventricular cavity size is mildly enlarged. The LV wall thickness is normal. There is mild diffuse hypokinesis with focal with hypokinesis of the inferior wall and apical inferior septum. The qualitative LV ejection fraction is 45-49% (mildly reduced). The left atrium is mildly enlarged. The left ventricular diastolic function is mildly abnormal (grade I). Mild tricuspid regurgitation is present. The estimated pulmonary artery systolic pressure is 37 mm Hg (upper limit of normal to mildly elevated). Compared to the report of the previous study dated 04/04/2021, the left ventricular systolic function is relatively unchanged. The pulmonary artery systolic pressure was estimated to be 34 mm Hg on the previous study. Carotid duplex in October 2022 revealed mild bilateral internal carotid artery disease. ASSESSMENT AND RECOMMENDATIONS/PLAN: ASCVD. Status post PCI of the left circumflex obtuse marginal branch in 2007. Repeat catheterization in September 2014 showed mild to moderate nonobstructive coronary artery disease. Stress testing negative for ischemia in February 2019. Stable, asymptomatic. Continue appropriate medical management as tolerated. Recommend aspirin 81 mg/day, metoprolol and atorvastatin. Hypertension. BP acceptably controlled, off of Losartan, known Parkinson's, on carbidopa levodopa which was recently increased. Hyperlipidemia. LDL goal less than 70 mg/dL. LDL 30 mg/dL on September 09, 2022. Continue atorvastatin 40 mg/day. Update lipids and LFT's. Frequent premature ventricular complexes. Holter monitor in March 2021 while on metoprolol succinate 12.5 mg once per day revealed sinus as the predominant rhythm with an average heart rate of 75 bpm, with a 3% ventricular ectopy burden. No sustained arrhythmias observed. Symptoms occurred in association with sinus rhythm and sinus rhythm with ventricular ectopy. Metoprolol increased to 25 mg daily without difficulty. Continue metoprolol succinate 25 mg/day. Follow- up ambulatory EKG declined. Parkinsonism. On Sinemet. Followed by [facility] Neurology. Anemia. Very mild anemia noted in September 2022, with borderline iron deficiency, history of iron deficiency anemia. Continue Vitron C on MWF. Recheck CBC Left carotid bruit. Mild bilateral internal carotid artery disease observed via duplex in Septembernd again in October 2022. Recommend aspirin and statin History of alcohol use/abuse, abstaining x 25 years. History of tobacco abuse, up to 2 ppd from his teenage years to age 54. Patient to remain tobacco free. Advair and possible alternatives discussed. He is going to explore [facility] Prescription Assistance Program and will let me know Routine cardiology follow-up in 6 months or as needed. ER with emergencies. Rogelio Verdin PA-C Department of Cardiology I spent a total of 20-29 minutes (exact time 26 mins) on the date of service in preparation, delivery, and documentation of the care provided to Ryder Berg excluding any time spent in the performance of separately billed services. This visit involved medical care services related to at least one serious condition or complex condition requiring ongoing care. This chart was completed in part utilizing [employer] Speech Voice Recognition Software. Grammatical errors, random word insertions, prounoun errors, and incomplete sentences are an occasional consequence of this system due to software limitations, ambient noise, and hardware issues. Any formal questions or concerns about the content, text, or information contained within the body of this dictation should be directly addressed to the provider for clarification. documented in this encounter Nursing Notes * Bernie Rosario LPN - 11/05/2023 3:33 PM EDT Examination Room: 3 Name: Ryder Berg Date of : 1950 Reason for Visit: Follow up Problems/Concerns: Exercises 5 days a week, states gets "exhausted" Interim Hosp(s): denies Chest Pain/SOB: denies MyChart Discussed: ALREADY ACTIVE Patient was instructed to not get up on the exam table until directed and assisted by their provider; patient is to remain seated in the chair/ wheelchair/ exam table for fall prevention and safety reasons. Patient is aware staff will assist stepping down off exam table with personnel. documented in this encounter Plan of Treatment Upcoming Encounters Date Type Department Care Team (Late st Contact Info) Description 11/26/2023 10:00 AM EDT Office Visit Family Medicine [address] [place] [phone] Fiona Briones PA-C [address] [place] [address] [place] [id number] 06/10/2024 10:00 AM EDT Nurse Only Ancillary [address] [place] [address] [place], Nurse Annual Wellness [address] [place] [address] [place] [id number] Scheduled Orders Name Type Priority Associated Diagnoses Orde r Schedule CBC Lab Routine HTN, goal below 140/90 Expected: 11/05/2023, Expires: 11/04/2024 LIPID PANEL WITH DIRECT LDL IF TG IS HIGH Lab Routine Dyslipidemia, goal LDL below 70 Expected: 11/05/2023, Expires: 11/04/2024 COMPREHENSIVE METABOLIC PANEL Lab Routine Dyslipidemia, goal LDL below 70 Expected: 11/05/2023, Expires: 11/04/2024 MAGNESIUM Lab Routine Dyslipidemia, goal LDL below 70 Expected: 11/05/2023, Expires: 11/04/2024 Scheduled Procedures Name Priority Associated Diagnoses Date/Ti me COLONOSCOPY FLEXIBLE PROXIMAL DIAGNOSTIC Recall History of colon polyps Health Maintenance Due Date Last Done Comments Albumin/Creatinine Ratio 11/09/1969 Alpha-1 Antitrypsin 11/09/1969 Hepatitis C Screening 11/09/1969 Cologuard 11/09/1996 Sigmoidoscopy 11/09/1996 Fecal Occult Blood Test 09/11/2012 09/12/2011, 10/26 COVID-19 Vaccine ( season) 2023 01/09/2023, 07/16/2021, 02/14/2021, Additional history exists GFR 09/10/2023 09/09/2022, 0804/2021, 11/23/2020, Additional history exists Influenza Vaccine (FLU [...] this encounter Medical Devices Implanted Type Area Campaign Developer Device Identifier Shelf Expiration Date Model / Serial / Lot Lens Intraoc 19.0 - [id number] - [id number] Implanted:Qty: 1 on 06/02/2019 by Thomas Maxwell MD at OR [facility] Left: Eye BAUSCH [employer] LOMB 12/28/2023 [id number] / [id number] / [id number] documented as of this encounter Visit Diagnoses Diagnosis ASCVD (arteriosclerotic cardiovascular disease)- Primary Unspecified cardiovascular disease Ischemic cardiomyopathy Other specified forms of chronic ischemic heart disease HTN, goal below 140/90 Unspecified essential hypertension S/P angioplasty with stent Postsurgical percutaneous transluminal coronary angioplasty status Dyslipidemia, goal LDL below 70 Other and unspecified hyperlipidemia documented in this encounter Advance Directives * Full Code (Latest Code Status on File) Date Activated Date Inactivated Comments 03/10/2008 1:11 PM 03/11/2008 5:46 PM Care Teams Airport Ramp Agent Relationship Specialty Start Date End Date Leandro Robles MD [address] [place] [address] [place] [phone] PCP - General Family Medicine 12/18/16 documented as of this encounter
--- OUTSIDE RECORDS SUMMARY | 2024-03-27 19:51 | External Medical Summary | Summary of Care ---
Author Name Unknown Organization [facility] Address [address] [facility] [place] [address] Phone [phone] Care Team Providers Care Data Control Assistant Name Role Phone Leandro Robles MD Primary Care Provide r Reason for Visit * Reason Onset Date Comments Health Maintenance 11/12/2023 Encounter Details Date Type Department Care Team (Late st Contact Info) Description 11/12/2023 Telephone Family Medicine [address] [place] [address] Leandro Robles MD [address] [place] [address] [place] [address] Health Maintenance Allergies Active Allergy Reactions Criticality Noted Date Comments Dextromethorphan Other (Please comment) 015 Breathlessness documented as of this encounter (statuses as of 11/12/2023) Medications Medication Sig Dispensed Refills Start Date [...] as of this encounter (statuses as of 11/12/2023) Active Problems Problem Noted Date Diagnosed Date [...] as of this encounter (statuses as of 11/12/2023) Resolved Problems Problem Noted Date Diagnosed Date Resolved Date Epistaxis 06/18/2017 03/18/2019 Acute coronary syndrome 03/10/200805/29 [employer] Other*[id number] 03/10/2008 05/06/2016 Overview: Study Title: Genomic Markers for Patients with Cardiovascular Disease Project # [id number] Software Development Engineer: Colleen Cintron MD [phone] Alcohol dependence in remission 10/27/2003 06/18/2017 Tobacco use disorder 10/27/2003 008 Chronic prostatitis 10/21/2001 05/10/19 16 Achilles tendinitis 05/10/19 16 H. pylori infection 05/10/19 16 Overview: treated COPD, moderate 06/09/2019 Overview: Per COPD GOLD Classification documented as of this encounter (statuses as of 11/12/2023) Immunizations Name Administration Dates Next Due COVID-19 [...] encounter Miscellaneous Notes * Telephone Encounter - Nany Lauren LPN - 11/12/2023 10:16 AM EDT Care Gaps Comprehensive Care Outreach Last Office/Telemedicine Visit: 09/09/2022 (in office), Visit date not found (telemedicine) Next Office Visit: 11/26/2023 Hemoglobin AIC Results: Lab Results Component Value Date/Time HEMOGLOBIN A1C - ROYERER 5.6 03/10/2008 02:42 PM BP Readings from Last 1 Encounters: 11/05/23 142/86 Reviewed Health Maintenance below: Health Maintenance Topic Date Due Albumin/Creatinine Ratio Never done Alpha-1 Antitrypsin Never done Hepatitis C Screening Never done COVID-19 Vaccine ( season) 2023 GFR 09/10/2023 Influenza Vaccine (FLU shot) (1) 11/29/2023 Depression Screening 06/08/2024 Lab already ordered Care Gap Outreach Action Taken: Outreach not indicated documented in this encounter Plan of Treatment Upcoming Encounters Date Type Department Care Team (Late st Contact Info) Description 11/26/2023 10:00 AM EDT Office Visit Family Medicine [address] [place] [phone] Fiona Briones PA-C [address] [place] [address] [place] [id number] 06/10/2024 10:00 AM EDT Nurse Only Ancillary [address] [place] [address] [place], Nurse Annual [address] [place] [phone] Scheduled Procedures Name Priority Associated Diagnoses Date/Ti [...] this encounter Medical Devices Implanted Type Area Process Design Chemical Engineer Device Identifier Shelf Expiration Date Model / Serial / Lot Lens Intraoc 19.0 - [id number] - [id number] Implanted:Qty: 1 on 06/02/2019 by Thomas Maxwell MD at OR [facility] Left: Eye [employer]CH [employer] LOMB 12/28/2023 [id number] / [id number] / [id number] documented as of this encounter Advance Directives * Full Code (Latest Code Status on File) Date Activated Date Inactivated Comments 03/10/2008 1:11 PM 03/11/2008 5:46 PM Care Teams Data Control Assistant Relationship Specialty Start Date End Date Leandro Robles MD [address] [place] [address] [place] [phone] PCP - General Family Medicine 12/18/16 documented as of this encounter
--- OUTSIDE RECORDS SUMMARY | 2024-03-27 19:51 | External Medical Summary | Summary of Care ---
Author Name Unknown Organization [facility] Address [address] [facility] [place] [address] Phone [phone] Care Team Providers Care Director Of Purchasing Name Role Phone Leandro Robles MD Primary Care Provide r Reason for Visit * Reason Onset Date Comments Medication Question 01/09/2024 Encounter Details Date Type Department Care Team (Late st Contact Info) Description 01/09/2024 Telephone Cardiology, [facility] [address] [place] [address] Rogelio Verdin PA-C [address] [place] [address] Medication Question Allergies Active Allergy Reactions Criticality Noted Date Comments Dextromethorphan Other (Please comment) 015 Breathlessness documented as of this encounter (statuses as of 01/09/2024) Medications Medication Sig Dispensed Refills Start Date [...] as of this encounter (statuses as of 01/09/2024) Active Problems Problem Noted Date Diagnosed Date [...] as of this encounter (statuses as of 01/09/2024) Resolved Problems Problem Noted Date Diagnosed Date Resolved Date Epistaxis 06/18/2017 03/18/2019 Acute coronary syndrome 03/10/200805/29 [employer] Other*[id number] 03/10/2008 05/06/2016 Overview: Study Title: Genomic Markers for Patients with Cardiovascular Disease Project # [id number] Labor Supervisor: Colleen Cintron MD [phone] Alcohol dependence in remission 10/27/2003 06/18/2017 Tobacco use disorder 10/27/2003 008 Chronic prostatitis 10/21/2001 05/10/19 16 Achilles tendinitis 05/10/19 16 H. pylori infection 05/10/19 16 Overview: treated COPD, moderate 06/09/2019 Overview: Per COPD GOLD Classification documented as of this encounter (statuses as of 01/09/2024) Immunizations Name Administration Dates Next Due COVID-19 [...] encounter Miscellaneous Notes * Telephone Encounter - Ryan Carcamo PHARM Tech - 01/09/2024 9:02 AM EDT Transferred to specialty for help. Thank You, Ryan Carcamo [facility] Panel Machine Operator II [facility] 01/09/2024, 9:02 AM documented in this encounter Plan of Treatment Upcoming Encounters Date Type Department Care Team (Late st Contact Info) Description 05/17/2024 1:40 PM EST Office Visit [address] [place] [address] Leandro Robles MD [address] [place] [address] [place] [address] 06/10/2024 10:00 AM EDT Nurse Only Ancillary [address] [place] [address] [place], Nurse Annual Wellness [address] [place] [address] [place] [address] 01/23/2025 1:20 PM EDT Office Visit [address] [place] [address] Leandro Robles MD [address] [place] [address] [place] [address] Scheduled Procedures Name Priority Associated Diagnoses Date/Ti me COLONOSCOPY FLEXIBLE PROXIMAL DIAGNOSTIC Recall History of colon polyps Health Maintenance Due Date Last Done Comments Albumin/Creatinine Ratio 11/09/1969 Alpha-1 Antitrypsin 11/09/1969 Hepatitis C Screening 11/09/1969 Cologuard 11/09/1996 Sigmoidoscopy 11/09/1996 Fecal Occult Blood Test 09/11/2012 09/12/2011, 10/26 GFR 09/10/2023 09/09/2022, 08/04/2021, 11/23/2020, Additional history exists COVID-19 Vaccine (2023- season) 2023 01/09/2023, 07/16/2021, 02/14/2021, Additional history [...] this encounter Medical Devices Implanted Type Area Poultry Helper Device Identifier Shelf Expiration Date Model / Serial / Lot Lens Intraoc 19.0 - [id number] - [id number] Implanted:Qty: 1 on 06/02/2019 by Thomas Maxwell MD at OR [facility] Left: Eye [employer] 12/28/2023 [id number] / [id number] / [id number] documented as of this encounter Advance Directives * Full Code (Latest Code Status on File) Date Activated Date Inactivated Comments 03/10/2008 1:11 PM 03/11/2008 5:46 PM Care Teams Director Of Purchasing Relationship Specialty Start Date End Date Leandro Robles MD [address] [place] [address] [place] [address] PCP - General Family Medicine 12/18/16 documented as of this encounter
--- OUTSIDE RECORDS SUMMARY | 2024-03-27 19:51 | External Medical Summary | Summary of Care ---
Author Name Unknown Organization [facility] Address [address] [facility] [address] Phone [phone] Care Team Providers Care Nail Sticker Name Role Phone Leandro Mcgowan MD Primary Care Provide r Reason for Visit * Reason Comments eRx-Medication Refill Encounter Details Date Type Department Care Team (Late st Contact Info) Description 10/18/2023 Refill Family Medicine [address] [phone] Leandro Mcgowan MD [address] [place] [address] [place] [address] Persistent insomnia; NATHALY (generalized anxiety disorder) Allergies Active Allergy Reactions Criticality Noted Date Comments Dextromethorphan Other (Please comment) 015 Breathlessness documented as of this encounter (statuses as of 10/27/2023) Medications Medication Sig Dispensed Refills Start Date [...] mouth in the morning and 1 Tablet before bedtime. 04/22/2022 Active Advair Diskus 250-50 MCG/ACT Inhalation Aerosol Powder Breath Activated (Fluticasone-Salmete rol)Indications:COPD , group B, by GOLD 2017 classification (HCC) [...] EVERYDAY AT BEDTIME 90 Tablet 10/19/2023 Active Sertraline HCl 25 MG Oral Tablet (Zoloft)Indications: Persistent insomnia,NATHALY (generalized anxiety disorder) TAKE 1 TABLET BY MOUTH EVERYDAY AT BEDTIME 90 Tablet 3 10/11/2022 Discontinued Hospital, Clinic, or Other Facility Administered Medication Ordered Dose Route Frequency Start Date End Date Status albuterol sulfate (PROVENTIL) (2.5 MG/3ML) 0.083% inhalation solution 2.5 mgIndications:COPD, mild (HCC) 2.5 mg NEBULIZER Q4H PRN 06/24/2017 Active documented as of this encounter (statuses as of 10/27/2023) Active Problems Problem Noted Date Diagnosed Date [...] as of this encounter (statuses as of 10/27/2023) Resolved Problems Problem Noted Date Diagnosed Date Resolved Date Epistaxis 06/18/2017 03/18/2019 Acute coronary syndrome 03/10/200805/29 [employer] Other*[id number] 03/10/2008 05/06/2016 Overview: Study Title: Genomic Markers for Patients with Cardiovascular Disease Project # [id number] Card Services Specialist: Colleen Cintron MD [phone] Alcohol dependence in remission 10/27/2003 06/18/2017 Tobacco use disorder 10/27/2003 008 Chronic prostatitis 10/21/2001 05/10/19 16 Achilles tendinitis 05/10/19 16 H. pylori infection 05/10/19 16 Overview: treated COPD, moderate 06/09/2019 Overview: Per COPD GOLD Classification documented as of this encounter (statuses as of 10/27/2023) Immunizations Name Administration Dates Next Due COVID-19 [...] * Telephone Encounter - Mark Mike - 10/27/2023 11:01 AM EDT Received message from [facility] regarding patient needing an appointment. Patient was notified. Successfully contacted patient and provided [facility] message. * Telephone Encounter - Lito Currie RPh - 10/19/2023 9:38 AM EDTSigned Prescriptions: Disp Refills Sertraline HCl 25 MG Oral Tablet (Zoloft) 90 Tab*0 Sig: TAKE 1 TABLET BY MOUTH EVERYDAY AT BEDTIME Authorizing Provider: LEANDRO MCGOWAN Ordering User: LITO CURRIE * Telephone Encounter - Lito Currie RPh - 10/19/2023 9:38 AM EDT Please contact patient so that an appointment can be scheduled with his PRIMARY CARE provider. Refill authorized to hold patient over in the mean time. Last Visit: 09/09/2022 (in office), Visit date not found (telemedicine) Next Visit: Visit date not found Lito Gamez PharmD Clinical Pharmacist [facility] ([facility]) [phone] 10/19/2023, 9:38 AM documented in this encounter Plan of Treatment Upcoming Encounters Date Type Department Care Team (Late st Contact Info) Description 11/05/2023 3:30 PM EDT Office Visit Cardiology [address] [place] [address] Rogelio Verdin PA-C [address] [place] [address] 11/26/2023 10:00 AM EDT Office Visit Family Medicine [address] [place] [phone] Fiona Briones PA-C [address] [place] [address] [place] [address] 06/10/2024 10:00 AM EDT Nurse Only Ancillary [address] [place] [address] [place], Nurse Annual Wellness [address] [place] [address] [place] [address] Scheduled Procedures Name Priority Associated Diagnoses Date/Ti [...] 09/10/2023 09/09/2022, 0804/2021, 11/23/2020, Additional history exists *CXR OR CT FOR COPD EVER 10/11/2023 Influenza Vaccine (FLU shot) (#1) 2023 12/24/2022, 02/24/2022, 03/07/2021, Additional history exists Depression Screening 06/08/2024 06/09/2023 O2 ASSESSMENT COMPLETED [...] this encounter Medical Devices Implanted Type Area General Supervisor Device Identifier Shelf Expiration Date Model / Serial / Lot Lens Intraoc 19.0 - [id number] - [id number] Implanted:Qty: 1 on 06/02/2019 by Thomas Maxwell MD at [facility] Left: Eye [employer] 12/28/2023 [id number] / [id number] / [id number] documented as of this encounter Visit Diagnoses Diagnosis Persistent insomnia Persistent disorder of initiating or maintaining sleep NATHALY (generalized anxiety disorder) Generalized anxiety disorder documented in this encounter Advance Directives * Full Code (Latest Code Status on File) Date Activated Date Inactivated Comments 03/10/2008 1:11 PM 03/11/2008 5:46 PM Care Teams Nail Sticker Relationship Specialty Start Date End Date Leandro Mcgowan MD [address] [place] [address] [place] [address] PCP - General Family Medicine 12/18/16 documented as of this encounter
--- OUTSIDE RECORDS SUMMARY | 2024-03-27 19:51 | External Medical Summary | Summary of Care ---
Author Name Unknown Organization [facility] Address [address] [place] [address] Phone [phone] Care Team Providers Care Gas Meter Checker Name Role Phone Leandro Mcgowan MD Primary Care Provide r Reason for Visit * Reason Onset Date Comments Medication Refill 11/16/2023 Encounter Details Date Type Department Care Team (Late st Contact Info) Description 11/16/2023 Refill Family Medicine [address] [phone] Leandro Mcgowan MD [address] [place] [address] [place] [address] COPD, group B, by GOLD 2017 classification ([facility]) Allergies Active Allergy Reactions Criticality Noted Date Comments Dextromethorphan Other (Please comment) 015 Breathlessness documented as of this encounter (statuses as of 11/17/2023) Medications Medication Sig Dispensed Refills Start Date [...] BEDTIME 90 Tablet 10/19/2023 Active Fluticasone-Salmeter ol 250-50 MCG/ACT Inhalation Aerosol Powder Breath Activated (Advair Diskus)Indications:C OPD, group B, by GOLD 2017 classification ([facility]) INHALE 1 PUFF BY MOUTH 2 TIMES A DAY. 60 Each 11/17/2023 Active Advair Diskus 250-50 MCG/ACT Inhalation Aerosol Powder Breath Activated (Fluticasone-Salmete rol)Indications:COPD , group B, by GOLD 2017 classification ([facility]) INHALE 1 PUFF BY MOUTH 2 TIMES A DAY. 60 Each 3 07/25/2022 4 Discontinue d(Refill) Hospital, Clinic, or Other Facility Administered Medication Ordered Dose Route Frequency Start Date End Date Status albuterol sulfate (PROVENTIL) (2.5 MG/3ML) 0.083% inhalation solution 2.5 mgIndications:COPD, mild (HCC) 2.5 mg NEBULIZER Q4H PRN 06/24/2017 Active documented as of this encounter (statuses as of 11/17/2023) Active Problems Problem Noted Date Diagnosed Date [...] as of this encounter (statuses as of 11/17/2023) Resolved Problems Problem Noted Date Diagnosed Date Resolved Date Epistaxis 06/18/2017 03/18/2019 Acute coronary syndrome 03/10/200805/29 [employer] Other*[id number] 03/10/2008 05/06/2016 Overview: Study Title: Genomic Markers for Patients with Cardiovascular Disease Project # [id number] Bridge Engineer: Colleen Cintron MD [phone] Alcohol dependence in remission 10/27/2003 06/18/2017 Tobacco use disorder 10/27/2003 008 Chronic prostatitis 10/21/2001 05/10/19 16 Achilles tendinitis 05/10/19 16 H. pylori infection 05/10/19 16 Overview: treated COPD, moderate 06/09/2019 Overview: Per COPD GOLD Classification documented as of this encounter (statuses as of 11/17/2023) Immunizations Name Administration Dates Next Due COVID-19 [...] Telephone Encounter - Joanna Arce RPh - 11/17/2023 2:52 PM EDTSigned Prescriptions: Disp Refills Fluticasone-Salmeterol 250-50 MCG/ACT Inha*60 Each0 Sig: INHALE 1 PUFF BY MOUTH 2 TIMES A DAY.Authorizing Provider: LEANDRO MCGOWAN User: Jean Claude ARCE * Telephone Encounter - Joanna Arce RPh - 11/17/2023 2:52 PM EDT RX authorized. Zero refills given until upcoming appt. 11/26/2023 Joanna Gamez, ZackaryD Clinical Pharmacist [facility] ([facility]) [phone] 11/17/2023 2:52 PM * Telephone Encounter - Jahaira Patino CPhT - 11/16/2023 8:22 AM EDT Did you pend patient's preferred pharmacy and medication before forwarding?yes Pharmacy: [id number] Pending Prescriptions: Disp Refills Fluticasone-Salmeterol 250-50 MCG/ACT Inh*60 Each3 Sig: INHALE 1 PUFF BY MOUTH 2 TIMES A DAY. Last Visit: 09/09/2022 (in office), Visit date not found (telemedicine) Next Visit: 11/26/2023 If no future appointments scheduled, and last appointment is greater than a year ago, please schedule patient for a follow-up appointment Last date the medication was ordered: 07/25/2022 Is this request for a controlled substance?No Urine Drug Screen:No results found. However, due to the size of the patient record, not all encounters were searched. Please check Results Review for a complete set of results. Patient Phone Numbers Labs: Lab Results Component Value Date/Time CREAT 0.8 09/09/2022 10:44 AM CREAT 0.9 08/30/2019 09:19 AM POTASSIUM 4.4 09/09/2022 10:44 AM POTASSIUM 5.1 08/30/2019 09:19 AM TSH 0.91 10/14/2022 08:57 AM TSH 0.92 08/30/2019 09:19 AM LDLCALC 30 09/09/2022 10:44 AM LDLCALC 41 08/30/2019 09:19 AM LDLDIRECT NOT APPLICABLE 08/30/2019 09:19 AM LDLDIRECT 84 08/20/2009 11:33 AM ALT 14 09/09/2022 10:44 AM ALT 12 08/30/2019 09:19 AM HGBA1C 5.6 03/10/2008 02:42 PM documented in this encounter Plan of Treatment Upcoming Encounters Date Type Department Care Team (Late st Contact Info) Description 11/26/2023 10:00 AM EDT Office Visit Family Medicine [address] [place] [phone] Fiona Briones PA-C [address] [place] [address] [place] [address] 06/10/2024 10:00 AM EDT Nurse Only Ancillary [address] [place] [address] [place], Nurse Annual [address] [place] [address] Scheduled Procedures Name Priority Associated Diagnoses Date/Ti [...] this encounter Medical Devices Implanted Type Area Natural Resources Manager Device Identifier Shelf Expiration Date Model / Serial / Lot Lens Intraoc 19.0 - [id number] - [id number] Implanted:Qty: 1 on 06/02/2019 by Thomas Maxwell MD at OR [facility] Left: Eye [employer]OM[employer] 12/28/2023 [id number] / [id number] / [id number] documented as of this encounter Visit Diagnoses Diagnosis COPD, group B, by GOLD 2017 classification (HCC) documented in this encounter Advance Directives * Full Code (Latest Code Status on File) Date Activated Date Inactivated Comments 03/10/2008 1:11 PM 03/11/2008 5:46 PM Care Teams Gas Meter Checker Relationship Specialty Start Date End Date Leandro Mcgowan MD [address] [place] [address] [place] [id number] PCP - General Family Medicine 12/18/16 documented as of this encounter
[2024-03-27 19:53] VITALS: TEMP 98.4
--- NOTE | 2024-03-27 20:14 | Emergency Department Note ---
Impression & Plan Stroke-like symptoms, Parkinsonism, COVID-19 ED Provider Note Provider: Bryn Beal MD CHIEF COMPLAINT: Neck tilt may be some speech changes HISTORY OF PRESENT ILLNESS: Patient is a 73-year-old gentleman past medical history including Parkinson's, CAD with stent, hypertension presenting with manuel who was concerned that he could have had a stroke or mini stroke the today. Woke up okay and went to [facility] okay this morning. Came back around noon or so and things seemed okay according to and patient. came and checked on around 4:30 PM this afternoon and noted that his head seem to be tilting to the right some and maybe his speech was little more slurred or difficult than normal. Has bit of a shuffling gait at baseline and a bit of hypophonia. Patient reports he is Nepali having little trouble with finding his words. Denies any new numbness or tingling. Denies any significant weakness or new ambulatory issues. Denies vision change. Has been taking his medications. talked with him and eventually convinced him to come for further evaluation here. In discussion with and patient maybe his speech is just ever so slightly off. Still has a little bit of tilt to the right. Maybe a slight cough has a history of COPD as well but no significant fevers or cold symptoms otherwise reported. No falls reported. PAST MEDICAL HISTORY: As noted above MEDICATIONS: Reviewed home medications includes aspirin. SOCIAL HISTORY: , former smoker PHYSICAL EXAM: GENERAL: alert and oriented in no acute distress on stretcher Head: normocephalic and atraumatic EYES: No injection, discharge or icterus. EOMI. NECK: Trachea midline. Supple ENT: Mucous membranes pink and moist. LUNGS: Airway patent. No retractions. Breath sounds clear HEART: Regular rate and rhythm. No chest wall tenderness ABDOMEN: Soft and non-tender, without guarding or rebound. SKIN: Acyanotic, warm, dry, without rashes EXTREMITIES: Without swelling, tenderness or deformity NEUROLOGICAL: No focal deficits. No aphasia. No facial droop or slurred speech. Ambulatory. EK bpm sinus rhythm with PAC. No acute ST segment elevation with some nonspecific lateral T wave inversions. QTc 440. CONTINUOUS CARDIAC MONITORING: was ordered and showed a heart rate of 80s to 90s bpm in sinus rhythm with PAC to sinus tachycardia 100s with rare episode of occasional NSVT. Patient's laboratory studies and imaging reviewed. Differential includes Infection, dehydration, metabolic abnormality, hypo/hyperglycemia, electrolyte disturbance, anemia, hypoxia, cardiac sources, intracerebral event, toxicologic, neurologic, as well as other pathologies. IMPRESSION/MEDICAL DECISION MAKING: Patient presents a little bit of right head tilt but no other numbness with maybe a little bit of speech issues according to . Noted around 4:30 PM but last known well was around noon. Outside thrombolytic window. Sent for CT and CT angiogram of the head and neck. Is anticoagulated with aspirin but not full anticoagulation. Does not seem hemiplegic will complete angiograms but low suspicion for LVO. Basic labs sent. Not hypoglycemic. Could also be confounding from either infectious etiology or related to his underlying Parkinson's disease. Blood work here without significant leukocytosis or severe anemia. No significant electrolyte abnormality signs of renal dysfunction. Incidentally does test positive for COVID. No evidence of UTI. CT head and angiograms head and neck per radiology report without significant finding. Chronic benign right cerebellum calcifications noted. Discussed with patient and at bedside. Could be just secondary to the COVID but and working up for TIA versus stroke symptoms did recommend staying for MRI and further workup. Patient and in agreement with this plan. Hospitalist contacted. DIAGNOSIS: Strokelike symptoms, COVID-19, Parkinson disease DISPOSITION: Hospitalist will evaluate Patient was agreeable with this plan. Past Med/Surg History Problem List (Updated 03/27/24 @ 22:13 by Bryn Beal M.D.) COVID-19 (Acute) Stroke-like symptoms (Acute) Parkinson disease B12 deficiency Vitamin D deficiency Vitamin E deficiency HTN (hypertension) (Chronic) Emphysema, unspecified Shuffling gait Anxiety and depression Bradykinesia Tremor Parkinsonism (Acute) Asthma (Chronic) Chest pain (Acute) Medical History Biceps muscle tear Emphysema, unspecified HTN (hypertension) Surgical History History of sinus surgery Family History Mother No problems noted. 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 Feels Safe at Home: Yes Allergies Allergies Allergy/AdvReac Type Severity Reaction Status Date / Time dextromethorphan Allergy Severe THROAT Verified 09/22/23 10:58 SWELLING Home Meds Home Medications Medication Instructions Recorded Confirmed albuterol sulfate 90 mcg/actuation 2 inh inhalation Q4H PRN 05/08/21 09/22/23 breath activated powder inhaler aspirin 81 mg tablet,delayed 81 mg PO .COMPLEX 05/08/21 09/22/23 release (Swapnil Low Dose Aspirin) atorvastatin 40 mg tablet 40 mg PO DAILY 05/08/21 09/22/23 fluticasone 250 mcg-salmeterol 50 1 inh inhalation BID 05/08/21 09/22/23 mcg/dose blistr powdr for inhalation (Advair Diskus) metoprolol succinate 25 mg 25 mg PO DAILY 05/08/21 09/22/23 tablet,extended release 24 hr nitroglycerin 0.4 mg sublingual 0.4 mg sublingual Q5M PRN 05/08/21 09/22/23 tablet pantoprazole 40 mg tablet,delayed 40 mg PO DAILY 05/08/21 09/22/23 release polyethylene glycol 3350 17 17 g PO DAILY 05/08/21 09/22/23 gram/dose oral powder (Miralax) sennosides 8.6 mg tablet (Natural 8.6 mg PO DAILY 05/08/21 09/22/23 Senna Laxative) sertraline 25 mg tablet 25 mg PO DAILY 05/08/21 09/22/23 simethicone 80 mg chewable tablet 80 mg PO .COMPLEX PRN 05/08/21 09/22/23 Previous Rx's Medication Instructions Recorded multivitamin 1 tab PO DAILY #30 tabs 05/09/21 magnesium oxide 400 mg PO HS #30 caps 05/31/21 carbidopa 25 mg-levodopa 250 mg 1 tab PO TID #270 tabs 01/22/24 tablet Results & Data (ED) Vital Signs Vital Signs - 24 hr 03/27/24 19:49 03/27/24 19:59 03/27/24 21:00 Temperature 36.9 C Temperature Source Temporal Artery Scan Pulse Rate 89 90 Pulse Rate [Apical] 88 Respiratory Rate 19 18 Respiratory Effort / Characteristics Non-Labored Spontaneous Non-Labored Spontaneous Respiratory Depth Normal Normal Respiratory Pattern Regular Regular Blood Pressure 127/75 Blood Pressure [Right Arm] 145/103 H Blood Pressure Mean 92 Blood Pressure Mean [Right Arm] 117 Blood Pressure Position Sitting Blood Pressure Position [Right Arm] Sitting Pulse Oximetry 93 95 Oxygen Delivery Method Room Air Room Air Sepsis Recent Fever Within 48 Hours No Sepsis New/Unexplained Change in Mental Status N/A Sepsis Action Taken by Nursing No Action Required 03/27/24 21:32 03/27/24 21:51 Temperature Temperature Source Pulse Rate 107 H 102 H Pulse Rate [Apical] Respiratory Rate Respiratory Effort / Characteristics Respiratory Depth Respiratory Pattern Blood Pressure Blood Pressure [Right Arm] Blood Pressure Mean Blood Pressure Mean [Right Arm] Blood Pressure Position Blood Pressure Position [Right Arm] Pulse Oximetry Oxygen Delivery Method Sepsis Recent Fever Within 48 Hours Sepsis New/Unexplained Change in Mental Status Sepsis Action Taken by Nursing Laboratory Data 03/27/24 20:10 03/27/24 20:10 Lab Results 03/27/24 03/27/24 03/27/24 Range/Units 20:10 20:15 20:24 WBC 5.90 (4.8-10.8) K/ul RBC 4.10 L (4.70-6.10) M/uL Hgb 12.4 L (14.0-18.0) g/dl POC Hgb 12.2 L (14.0-18.0) g/dl Hct 35.9 L (42.0-52.0) % POC Hct 36 L (42-52) % MCV 87.6 (80.0-100.0) fL MCH 30.2 (25.0-34.0) pg MCHC 34.5 (32.0-36.0) g/dL RDW Std Deviation 40.6 (36.4-46.3) fL RDW Coeff of Tim 12.7 (11.5-14.5) % Plt Count 122 L (130-400) K/uL MPV 9.7 (9.4-12.4) fL Immature Gran % (Auto) 0.3 % Neut % (Auto) 75.2 % Lymph % (Auto) 10.0 % [place] % (Auto) 12.5 % Eos % (Auto) 1.7 % Baso % (Auto) 0.3 % Neut # (Auto) 4.43 (1.40-6.50) K/uL Lymph # (Auto) 0.59 L (1.20-3.40) K/uL [place] # (Auto) 0.74 H (0.11-0.59) K/uL Eos # (Auto) 0.10 (0.00-0.50) K/uL Baso # (Auto) 0.02 (0.00-0.20) K/uL Immature Gran # (Auto) 0.02 (0.01-0.20) K/uL PT 11.8 (9.0-12.0) Seconds INR 1.1 (0.9-1.1) APTT 30 (21-31) Seconds PTT Ratio 1.1 POC Sodium 138 (135-144) mmol/L Sodium 136 (136-145) mmol/L POC Potassium 3.6 (3.3-5.0) mmol/L Potassium 3.7 (3.5-5.1) mmol/L POC Chloride 99 L (101-112) mmol/L Chloride 103 (98-107) mmol/L Carbon Dioxide 26 (21-32) mmol/L POC Total CO2 25 (24-31) mmol/L Anion Gap 7 (3-11) POC Anion Gap 18.0 (16-25) mmol/L POC BUN 17 (7-18) mg/dl BUN 18 (6-23) mg/dl Creatinine 0.90 (0.6-1.4) mg/dl POC Creatinine 0.9 (0.6-1.3) mg/dl Est Cr Clr Drug Dosing 67.0 ml/min eGFR 90.74 BUN/Creatinine Ratio 20.0 (10-20) Glucose 102 H (70-99(Fasting)) mg/dl POC Glucose (other) 100 H (70-99) mg/dl Calcium 8.8 (8.6-10.3) mg/dl POC Ioniz Calcium Fidencio 1.16 (1.12-1.32) mmol/l Magnesium 1.8 (1.7-2.4) mg/dl Total Bilirubin 1.2 H (0.2-1.0) mg/dl AST 18 (13-39) U/L ALT 4 L (7-52) U/L Alkaline Phosphatase 99 (34-104) U/L Troponin I High Sens 7.9 (0-20) pg/ml Total Protein 6.8 (6.0-8.3) gm/dl Albumin 4.3 (3.4-5.0) gm/dl Globulin 2.5 (2.5-4.0) gm/dl Albumin/Globulin Ratio 1.7 (0.9-2) Urine Color Yellow Urine Appearance Clear (Clear) Urine pH 5.0 (4.5-7.5) Ur Specific [place] 1.027 (1.000-1.030) Urine Protein Trace H (Negative) Urine Glucose (UA) Negative (Negative) Urine Ketones Trace H (Negative) Urine Blood Negative (Negative) Urine Nitrite Negative (Negative) Urine Bilirubin Negative (Negative) Urine Urobilinogen Negative (Negative) Ur Leukocyte Esterase Trace H (Negative) Urine WBC (Auto) 0-5 (0-5) /hpf Urine RBC (Auto) 0-2 (0-2) /hpf U Hyaline Cast (Auto) 3-5 H (0-2) /lpf U Epithel Cells (Auto) 0-2 (0-2) /hpf Urine Bacteria (Auto) None Seen (None Seen) Urine Sperm Present A (None Prsent) Adenovirus (PCR) Not Detected (NotDetected) B. pertussis DNA (PCR) Not Detected (NotDetected) B.parapertussis DNA PCR Not Detected (NotDetected) C. pneumoniae DNA (PCR) Not Detected (NotDetected) Coronavirus OC43 (PCR) Not Detected (NotDetected) Coronavirus HKU1 (PCR) Not Detected (NotDetected) Coronavirus 229E (PCR) Not Detected (NotDetected) SARS-CoV-2 (PCR) DETECTED A (NotDetected) Coronavirus NL63 (PCR) Not Detected (NotDetected) Human Metapneumovir PCR Not Detected (NotDetected) Influenza Type A (PCR) Not Detected (NotDetected) Influenza Type B (PCR) Not Detected (NotDetected) M. pneumoniae (PCR) Not Detected (NotDetected) Parainfluenza 1 (PCR) Not Detected (NotDetected) Parainfluenza 2 (PCR) Not Detected (NotDetected) Parainfluenza 3 (PCR) Not Detected (NotDetected) Parainfluenza 4 (PCR) Not Detected (NotDetected) RSV (PCR) Not Detected (NotDetected) Entero/Rhino (PCR) Not Detected (NotDetected) Administered Medications Discontinued Medications Ioversol (Optiray 320 125ml) 119 ml IV ONCE ONE Stop: 03/27/24 20:42 Last Admin: 03/27/24 20:42 Dose: 119 ml Documented By: EDK Imaging Data Radiologist's Impression: Head CT 03/27/24 19:56 Exam(s): CT HEAD Without Contrast EXAM: CT Head Without Intravenous Contrast CLINICAL HISTORY: Reason for exam: neuro deficit, acute stroke suspected. TECHNIQUE: Axial computed tomography images of the head/brain without intravenous contrast. CTDI is 51 mGy and DLP is 874 mGy-cm. Automated exposure control was utilized for the study. A dose lowering technique was utilized adhering to the principles of ALARA. COMPARISON: No relevant prior studies available. FINDINGS: Brain: Benign appearing calcification right cerebellar hemisphere. Patchy chronic small vessel ischemic change and generalized volume loss. Fay-white matter differentiation maintained. No hemorrhage, mass-effect, parenchymal edema, or midline shift. Ventricles: Unremarkable. No hydrocephalus. Bones/joints: Unremarkable. No acute fracture. Soft tissues: Unremarkable. Vasculature: Intracranial atherosclerosis. No hyperdense vessel sign. Sinuses: Mucosal thickening in the paranasal sinuses with evidence of prior sinonasal surgery. Mastoid air cells: Unremarkable as visualized. No mastoid effusion. Orbits: Lens replacements. IMPRESSION: No acute intracranial process. Electronically signed by: Pepper Hines M.D. 03/27/24 21:32 PM Head CTA 03/27/24 19:56 Exam(s): CTA HEAD With Contrast IV Amt: 119 ml optiray 320 EXAM: CT Angiography Head With Intravenous Contrast CLINICAL HISTORY: Reason for exam: neuro deficit, acute stroke suspected. TECHNIQUE: Axial computed tomographic angiography images of the head with intravenous contrast. CTDI is 13 mGy and DLP is 495 mGy-cm. Automated exposure control was utilized for the study. A dose lowering technique was utilized adhering to the principles of ALARA. MIP reconstructed images were created and reviewed. CONTRAST: Patient received 119 ml optiray 320 of IV contrast COMPARISON: Same day CT head FINDINGS: Right internal carotid artery: Calcific plaquing of the intracranial right ICA with mild degrees of stenosis, not hemodynamically significant. No aneurysm. Right anterior cerebral artery: Unremarkable. No occlusion or significant stenosis. No aneurysm. Right middle cerebral artery: Unremarkable. No occlusion or significant stenosis. No aneurysm. Right posterior cerebral artery: Unremarkable. No occlusion or significant stenosis. No aneurysm. Right vertebral artery: Unremarkable as visualized. Left internal carotid artery: Calcific plaquing intracranial left ICA with mild degrees of stenosis, not hemodynamically significant. No aneurysm. Left anterior cerebral artery: Unremarkable. No occlusion or significant stenosis. No aneurysm. Left middle cerebral artery: Unremarkable. No occlusion or significant stenosis. No aneurysm. Left posterior cerebral artery: Unremarkable. No occlusion or significant stenosis. No aneurysm. Left vertebral artery: Unremarkable as visualized. Basilar artery: Unremarkable. No occlusion or significant stenosis. No aneurysm. Brain: Intracranial atherosclerosis. IMPRESSION: Patent intracranial circulation. Electronically signed by: Pepper Hines M.D. 03/27/24 21:39 PM Neck CTA 03/27/24 19:56 Exam(s): CTA NECK With Contrast IV Amt: 119ML OPTIRAY 320 EXAM: CT Angiography Neck With Intravenous Contrast CLINICAL HISTORY: Reason for exam: neuro deficit, acute stroke suspected. TECHNIQUE: Routine carotid CT angiography protocol was performed with intravenous contrast. NASCET criteria using the distal ICAs for comparison were used for evaluation of stenoses. CTDI is 51 mGy and DLP is 1386 mGy-cm. Automated exposure control was utilized for the study. A dose lowering technique was utilized adhering to the principles of ALARA. MIP reconstructed images were created and reviewed. CONTRAST: Patient received 119ML OPTIRAY 320 of IV contrast COMPARISON: None. FINDINGS: VASCULATURE: Right common carotid artery: Unremarkable. No occlusion or significant stenosis. No dissection. Right internal carotid artery: Unremarkable. Extracranial segment is patent with no occlusion or significant stenosis. No dissection. Right external carotid artery: Unremarkable. No occlusion. Right vertebral artery: Unremarkable. No occlusion or significant stenosis. No dissection. Left common carotid artery: Unremarkable. No occlusion or significant stenosis. No dissection. Left internal carotid artery: Unremarkable. Extracranial segment is patent with no occlusion or significant stenosis. No dissection. Left external carotid artery: Unremarkable. No occlusion. Left vertebral artery: Unremarkable. No occlusion or significant stenosis. No dissection. Aorta: Conventional aortic arch branch anatomy. NECK: Bones/joints: Degenerative change in the spine. No acute osseous findings. Soft tissues: Unremarkable. Thyroid: Left thyroid nodule measuring 13 mm; no follow-up indicated based on size criteria. Lung apices: Clear. CAROTID STENOSIS REFERENCE USING NASCET CRITERIA: % ICA stenosis = (1 - narrowest ICA diameter/diameter of distal cervical ICA) x 100. Mild - <50% stenosis. Moderate - 50-69% stenosis. Severe - 70-94% stenosis. Near occlusion - 95-99% stenosis. Occluded - 100% stenosis. IMPRESSION: No dissection, hemodynamically significant stenosis, or occlusion. Electronically signed by: Pepper Hines M.D. 03/27/24 21:37 PM Discharge Plan Visit Data Chief Complaint: TIA Symptoms Stated Complaint: NECK TILTED, SPEECH DIFFICULT ED Provider: Bryn Beal Discharge Problem: Stroke-like symptoms, Parkinsonism, COVID-19 Patient Disposition: Being Evaluated by Hospitalist Forms Stand Alone Forms: My [facility] Prescriptions Prescriptions: No Action simethicone 80 mg tablet,chewable 80 mg PO .COMPLEX PRN Rx Instructions: 80 mg PO Every 6 hours PRN; fluticasone propion-salmeterol [Advair Diskus] 250-50 mcg/dose blister with device 1 inh inhalation BID polyethylene glycol 3350 [Miralax] 17 gram/dose powder 17 g PO DAILY aspirin [Swapnil Low Dose Aspirin] 81 mg tablet,delayed release (DR/EC) 81 mg PO .COMPLEX Rx Instructions: 81 mg PO Every other day; nitroglycerin 0.4 mg tablet, sublingual 0.4 mg sublingual Q5M PRN Rx Instructions: do not exceed 3 doses per episode metoprolol succinate 25 mg tablet extended release 24 hr 25 mg PO DAILY sertraline 25 mg tablet 25 mg PO DAILY pantoprazole 40 mg tablet,delayed release (DR/EC) 40 mg PO DAILY atorvastatin 40 mg tablet 40 mg PO DAILY albuterol sulfate 90 mcg/actuation aerosol powdr breath activated 2 inh inhalation Q4H PRN sennosides [Natural Senna Laxative] 8.6 mg tablet 8.6 mg PO DAILY multivitamin Tablet 1 tab PO DAILY Qty: 30 0RF carbidopa-levodopa 25-250 mg tablet 1 tab PO TID Qty: 270 3RF magnesium oxide 400 mg magnesium capsule 400 mg PO HS Qty: 30 0RF Referrals Referrals: Leandro Robles MD [Primary Care Provider] -
[2024-03-27 20:26] LABS: Basophils # (auto) 0.02 K/uL (0.00-0.20); Basophils % (auto) 0.3 %; Eosinophils % (auto) 1.7 %; Hematocrit (blood only) 35.9 % (42.0-52.0); Hemoglobin 12.4 g/dl (14.0-18.0); Immature Granulocytes # (auto) 0.02 K/uL (0.01-0.20); Immature Granulocytes % (auto) 0.3 %; Lymphocytes # (auto) 0.59 K/uL (1.20-3.40); Mean Corpuscular Hemoglobin 30.2 pg (25.0-34.0); Mean Corpuscular Hgb Conc 34.5 g/dL (32.0-36.0); Mean Corpuscular Volume 87.6 fL (80.0-100.0); Mean Platelet Volume 9.7 fL (9.4-12.4); Monocytes # (auto) 0.74 K/uL (0.11-0.59); Monocytes % (auto) 12.5 %; Neutrophils # (auto) 4.43 K/uL (1.40-6.50); Neutrophils % (auto) 75.2 %; Platelet Count 122 K/uL (130-400); RDW Coefficient of Variation 12.7 % (11.5-14.5); RDW Standard Deviation 40.6 fL (36.4-46.3)
[2024-03-27 20:27] LABS: iSTAT Creatinine 0.9 mg/dl (0.6-1.3); iSTAT Hemoglobin 12.2 g/dl (14.0-18.0); iSTAT Ionized Calcium 1.16 mmol/l (1.12-1.32); iSTAT Potassium 3.6 mmol/L (3.3-5.0)
[2024-03-27 20:42] LABS: Albumin Globulin Ratio 1.7 (0.9-2); Albumin Level 4.3 gm/dl (3.4-5.0); Bilirubin,Total 1.2 mg/dl (0.2-1.0); Calcium 8.8 mg/dl (8.6-10.3); Globulin 2.5 gm/dl (2.5-4.0); Magnesium 1.8 mg/dl (1.7-2.4); Potassium 3.7 mmol/L (3.5-5.1); Total Protein 6.8 gm/dl (6.0-8.3)
[2024-03-27] MEDS: OPTIRAY 320 125ml IV ONE (20:42)
[2024-03-27 20:49] LABS: Troponin I High Sensitivity 7.9 pg/ml (0-20)
[2024-03-27 20:50] LABS: Appearance Urine Clear (Clear); Bacteria Urine Automated None Seen (None Seen); Bilirubin Urine Negative (Negative); Blood Urine Negative (Negative); Color Urine Yellow; Epithelial Cell Urine Auto 0-2 /hpf (0-2); Glucose Urine UA Negative (Negative); Ketones Urine Trace (Negative); Leukocyte Esterase Urine Trace (Negative); Nitrite Urine Negative (Negative); Protein Urine Trace (Negative); RBC Urine Automated 0-2 /hpf (0-2); Specific Gravity Urine 1.027 (1.000-1.030); Sperm Urine Present (None Prsent); Urobilinogen Urine Negative (Negative); WBC Urine Automated 0-5 /hpf (0-5)
[2024-03-27 20:53] LABS: INR 1.1 (0.9-1.1); Partial Thromboplastin Ratio 1.1; Partial Thromboplastin Time 30 Seconds (21-31); Prothrombin Time 11.8 Seconds (9.0-12.0)
--- NOTE | 2024-03-27 21:33 | CT Scan Report ---
Exam(s): CT HEAD Without Contrast EXAM: CT Head Without Intravenous Contrast CLINICAL HISTORY: Reason for exam: neuro deficit, acute stroke suspected. TECHNIQUE: Axial computed tomography images of the head/brain without intravenous contrast. CTDI is 51 mGy and DLP is 874 mGy-cm. Automated exposure control was utilized for the study. A dose lowering technique was utilized adhering to the principles of ALARA. COMPARISON: No relevant prior studies available. FINDINGS: Brain: Benign appearing calcification right cerebellar hemisphere. Patchy chronic small vessel ischemic change and generalized volume loss. Fay-white matter differentiation maintained. No hemorrhage, mass-effect, parenchymal edema, or midline shift. Ventricles: Unremarkable. No hydrocephalus. Bones/joints: Unremarkable. No acute fracture. Soft tissues: Unremarkable. Vasculature: Intracranial atherosclerosis. No hyperdense vessel sign. Sinuses: Mucosal thickening in the paranasal sinuses with evidence of prior sinonasal surgery. Mastoid air cells: Unremarkable as visualized. No mastoid effusion. Orbits: Lens replacements. IMPRESSION: No acute intracranial process. Electronically signed by: Pepper Hines M.D. 03/27/24 21:32 PM
[2024-03-27 21:34] LABS: Adenovirus PCR Not Detected (NotDetected); Bordetella parapertussis PCR Not Detected (NotDetected); Bordetella pertussis PCR Not Detected (NotDetected); Chlamydia pneumoniae PCR Not Detected (NotDetected); Coronavirus 229E PCR Not Detected (NotDetected); Coronavirus CoV-2 (COVID19)PCR DETECTED (NotDetected); Coronavirus HKU1 PCR Not Detected (NotDetected); Coronavirus NL63 PCR Not Detected (NotDetected); Coronavirus OC43PCR Not Detected (NotDetected); Human Metapneumovirus PCR Not Detected (NotDetected); Influenza A PCR Not Detected (NotDetected); Influenza B PCR Not Detected (NotDetected); Mycoplasma pneumoniae PCR Not Detected (NotDetected); Parainfluenza Virus 1 PCR Not Detected (NotDetected); Parainfluenza Virus 2 PCR Not Detected (NotDetected); Parainfluenza Virus 3 PCR Not Detected (NotDetected); Parainfluenza Virus 4 PCR Not Detected (NotDetected); Respiratory Syncytial VirusPCR Not Detected (NotDetected); Rhinovirus/Enterovirus PCR Not Detected (NotDetected)
--- NOTE | 2024-03-27 21:38 | CT Scan Report ---
Exam(s): CTA NECK With Contrast IV Amt: 119ML OPTIRAY 320 EXAM: CT Angiography Neck With Intravenous Contrast CLINICAL HISTORY: Reason for exam: neuro deficit, acute stroke suspected. TECHNIQUE: Routine carotid CT angiography protocol was performed with intravenous contrast. NASCET criteria using the distal ICAs for comparison were used for evaluation of stenoses. CTDI is 51 mGy and DLP is 1386 mGy-cm. Automated exposure control was utilized for the study. A dose lowering technique was utilized adhering to the principles of ALARA. MIP reconstructed images were created and reviewed. CONTRAST: Patient received 119ML OPTIRAY 320 of IV contrast COMPARISON: None. FINDINGS: VASCULATURE: Right common carotid artery: Unremarkable. No occlusion or significant stenosis. No dissection. Right internal carotid artery: Unremarkable. Extracranial segment is patent with no occlusion or significant stenosis. No dissection. Right external carotid artery: Unremarkable. No occlusion. Right vertebral artery: Unremarkable. No occlusion or significant stenosis. No dissection. Left common carotid artery: Unremarkable. No occlusion or significant stenosis. No dissection. Left internal carotid artery: Unremarkable. Extracranial segment is patent with no occlusion or significant stenosis. No dissection. Left external carotid artery: Unremarkable. No occlusion. Left vertebral artery: Unremarkable. No occlusion or significant stenosis. No dissection. Aorta: Conventional aortic arch branch anatomy. NECK: Bones/joints: Degenerative change in the spine. No acute osseous findings. Soft tissues: Unremarkable. Thyroid: Left thyroid nodule measuring 13 mm; no follow-up indicated based on size criteria. Lung apices: Clear. CAROTID STENOSIS REFERENCE USING NASCET CRITERIA: % ICA stenosis = (1 - narrowest ICA diameter/diameter of distal cervical ICA) x 100. Mild - <50% stenosis. Moderate - 50-69% stenosis. Severe - 70-94% stenosis. Near occlusion - 95-99% stenosis. Occluded - 100% stenosis. IMPRESSION: No dissection, hemodynamically significant stenosis, or occlusion. Electronically signed by: Pepper Hines M.D. 03/27/24 21:37 PM
--- NOTE | 2024-03-27 21:40 | CT Scan Report ---
Exam(s): CTA HEAD With Contrast IV Amt: 119 ml optiray 320 EXAM: CT Angiography Head With Intravenous Contrast CLINICAL HISTORY: Reason for exam: neuro deficit, acute stroke suspected. TECHNIQUE: Axial computed tomographic angiography images of the head with intravenous contrast. CTDI is 13 mGy and DLP is 495 mGy-cm. Automated exposure control was utilized for the study. A dose lowering technique was utilized adhering to the principles of ALARA. MIP reconstructed images were created and reviewed. CONTRAST: Patient received 119 ml optiray 320 of IV contrast COMPARISON: Same day CT head FINDINGS: Right internal carotid artery: Calcific plaquing of the intracranial right ICA with mild degrees of stenosis, not hemodynamically significant. No aneurysm. Right anterior cerebral artery: Unremarkable. No occlusion or significant stenosis. No aneurysm. Right middle cerebral artery: Unremarkable. No occlusion or significant stenosis. No aneurysm. Right posterior cerebral artery: Unremarkable. No occlusion or significant stenosis. No aneurysm. Right vertebral artery: Unremarkable as visualized. Left internal carotid artery: Calcific plaquing intracranial left ICA with mild degrees of stenosis, not hemodynamically significant. No aneurysm. Left anterior cerebral artery: Unremarkable. No occlusion or significant stenosis. No aneurysm. Left middle cerebral artery: Unremarkable. No occlusion or significant stenosis. No aneurysm. Left posterior cerebral artery: Unremarkable. No occlusion or significant stenosis. No aneurysm. Left vertebral artery: Unremarkable as visualized. Basilar artery: Unremarkable. No occlusion or significant stenosis. No aneurysm. Brain: Intracranial atherosclerosis. IMPRESSION: Patent intracranial circulation. Electronically signed by: Pepper Hines M.D. 03/27/24 21:39 PM
[2024-03-27] MEDS: MAGNESIUM SULFATE / D5W 1 GM/100 ML BAG IV ONE (23:39)
[2024-03-27] MEDS: NSS + 20MEQ KCL 20 MEQ/1,000 ML BAG IV ONE (23:49)
[2024-03-28 00:12] LABS: Ferritin 36.4 ng/ml (8-388)
[2024-03-28 00:15] LABS: Folate (Folic Acid),Ser orPlas 10.96 ng/ml (>5.38)
[2024-03-28 00:50] LABS: Hematocrit (blood only) 37.5 % (42.0-52.0); Hemoglobin 12.8 g/dl (14.0-18.0); Reticulocyte % 0.83 % (0.50-2.00); Reticulocytes # 0.04 10^6/uL (0.020-0.100)
--- NOTE | 2024-03-28 01:33 | History & Physical Report ---
Date of Service March 28, 2024 Assessment & Plan (1) Stroke-like symptoms: Plan: Transient dysarthria and right-sided head tilt symptoms History of Parkinson's disease with memory impairment as per records COVID-19 pneumonia Patient with chronic wheezing symptoms attributed to COPD by patient No sepsis for now Hypertension slight elevated Hyperlipidemia on statin Rx chronic systolic heart failure (EF 45%, TTE 2022), patient euvolemic to dry hx CAD status post stent mild TR pulmonary hypertension mild BRAD Acute on chronic anemia, hemoglobin drop from baseline likely from recurrent epistaxis episodes New onset thrombocytopenia past alcohol/tobacco abuse OBS Medical telemetry Neurochecks MRI brain, TTE for stroke workup Daily aspirin for now if H&H stable Update lipid profile, continue statin Rx Permissive hypertension until acute stroke ruled out Neurology consult Re: TIA symptoms (Patient known to [facility].) Anemia workup, transfuse PRBC if hemoglobin less than 8 and or for symptomatic anemia given vascular disease Supportive management for COVID-19 pneumonia, consider Decadron course if O2 sats less than 94% on room air DVT prophylaxis. SCDs re: thrombocytopenia Full code Patient requesting updates providers. Mr. Cici Berg, contact #[phone]. Text document was generated using [employer] voice recognition software. It may contain grammatical or spelling errors. Kindly contact undersigned for clarification of any documentation item in question. History of Present Illness Chief Complaint: Slurred speech, right neck tilt Primary Care Provider: Leandro Robles MD History obtained from patient, family, and records. Medical history significant for chronic systolic heart failure (EF 45%, TTE 2022), CAD status post stent, mild TR, pulmonary hypertension, hypertension, hyperlipidemia, COPD, mild BRAD, GERD, chronic anemia (baseline hemoglobin of 13), Parkinson's disease, memory impairment as per records, history of traumatic brain injury, recurrent epistaxis, history nasal perforation as per records, poliomyelitis, past alcohol/tobacco abuse. 2 weeks history of history of cough symptoms productive of clear sputum. No unusual chest pain or SOB. Usual wheezing symptoms at home from COPD as per patient. Patient no sure about sick contacts. Denies aspiration. Yesterday afternoon, patient had noted to be tilted to the right, patient speech more slurred than usual. Patient only able to take daily aspirin 3 times a week due to frequent epistaxis episodes which has required cautery by ENT specialist in the past. Self-limited epistaxis episode yesterday without headache complaints. Denies abdominal pain/black/bloody stools. Patient brought to ER for evaluation. Slurred speech much better as per patient/family. Medical History as above Surgical History : Tonsillectomy, cataract surgeries, biceps tendon repair, sinus surgery Family History : Stroke, Jayy syndrome, brain cancer Personal/Social history : Past tobacco/alcohol abuse, retired manager education Allergies Allergy/AdvReac Type Severity Reaction Status Date / Time dextromethorphan Allergy Severe THROAT Verified 09/22/23 10:58 SWELLING Home Medications Medication Instructions Recorded Confirmed Type albuterol sulfate 90 mcg/actuation 2 inh inhalation Q4H PRN sob 05/08/21 03/27/24 History breath activated powder inhaler aspirin 81 mg tablet,delayed 81 mg PO .COMPLEX 05/08/21 03/27/24 History release (Swapnil Low Dose Aspirin) atorvastatin 40 mg tablet 40 mg PO DAILY 05/08/21 03/27/24 History fluticasone 250 mcg-salmeterol 50 1 inh inhalation BID 05/08/21 03/27/24 History mcg/dose blistr powdr for inhalation (Advair Diskus) metoprolol succinate 25 mg 25 mg PO DAILY 05/08/21 03/27/24 History tablet,extended release 24 hr nitroglycerin 0.4 mg sublingual 0.4 mg sublingual Q5M PRN attack 05/08/21 03/27/24 History tablet pantoprazole 40 mg tablet,delayed 40 mg PO DAILY 05/08/21 03/27/24 History release polyethylene glycol 3350 17 17 g PO DAILY 05/08/21 03/27/24 History gram/dose oral powder (Miralax) sennosides 8.6 mg tablet (Natural 8.6 mg PO DAILY 05/08/21 03/27/24 History Senna Laxative) sertraline 25 mg tablet 25 mg PO DAILY 05/08/21 03/27/24 History simethicone 80 mg chewable tablet 80 mg PO .COMPLEX PRN Constipation 05/08/21 03/27/24 History multivitamin 1 tab PO DAILY #30 tabs 05/09/21 03/27/24 Rx magnesium oxide 400 mg PO HS #30 caps 03/04/22 12/29/24 Rx carbidopa 25 mg-levodopa 250 mg 1 tab PO TID #270 tabs 01/22/24 03/27/24 Rx tablet Past Med/Surg History Problem List (Updated 03/27/24 @ 22:13 by Bryn Beal M.D.) COVID-19 (Acute) Stroke-like symptoms (Acute) Parkinson disease B12 deficiency Vitamin D deficiency Vitamin E deficiency HTN (hypertension) (Chronic) Emphysema, unspecified Shuffling gait Anxiety and depression Bradykinesia Tremor Parkinsonism (Acute) Asthma (Chronic) Chest pain (Acute) Medical History Biceps muscle tear Emphysema, unspecified HTN (hypertension) Surgical History History of sinus surgery Family History Mother No problems noted. 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 Other Information That Helps Us Care for You: No Feels Safe at Home: Yes Safety Concerns: Feels Safe At This Time Assistive Devices: None Review of Systems Review of Systems: As per HPI, all other systems reviewed and negative Physical Exam Physical Exam: GENERAL: Comfortable, pleasant, mask-like facies, slightly hard of hearing, no respiratory distress SKIN: Normal color, warm HEENT: Alopecia, bespectacled, pink palpebral conjunctivae, no ptosis, dry buccal mucosa NECK : Supple, no tenderness CHEST : Decreased breath sounds, expiratory wheezes, no tenderness HEART : RRR, no obvious murmurs ABDOMEN: Some distention, nontender EXTREMITIES : No LE swelling/tenderness, no other conspicuous deformities noted NEUROLOGIC : Coherent, no facial asymmetry, no dysarthria, intention tremors, gait and stance not assessed Results & Data Results & Data Vital Signs (Past 12 Hours) Vital Signs Temp Pulse Pulse Resp BP BP Pulse Ox 03/28/24 00:05 76 03/28/24 00:00 72 16 133/67 94 03/27/24 23:37 87 22 148/80 H 94 03/27/24 21:51 102 H 03/27/24 21:32 107 H 03/27/24 21:00 88 18 145/103 H 95 03/27/24 19:59 90 03/27/24 19:49 36.9 C 89 19 127/75 93 O2 Del Method 03/28/24 00:05 03/28/24 00:00 Room Air 03/27/24 23:37 Room Air 03/27/24 21:51 03/27/24 21:32 03/27/24 21:00 Room Air 03/27/24 19:59 03/27/24 19:49 Room Air Laboratory Results Laboratory Results WBC 5.90 K/ul (4.8-10.8) 03/27/24 20:10 RBC 4.10 M/uL (4.70-6.10) L 03/27/24 20:10 Hgb 12.8 g/dl (14.0-18.0) L 03/27/24 23:45 POC Hgb 12.2 g/dl (14.0-18.0) L 03/27/24 20:15 Hct 37.5 % (42.0-52.0) L 03/27/24 23:45 POC Hct 36 % (42-52) L 03/27/24 20:15 MCV 87.6 fL (80.0-100.0) 03/27/24 20:10 MCH 30.2 pg (25.0-34.0) 03/27/24 20:10 MCHC 34.5 g/dL (32.0-36.0) 03/27/24 20:10 RDW Std Deviation 40.6 fL (36.4-46.3) 03/27/24 20:10 RDW Coeff of Tmi 12.7 % (11.5-14.5) 03/27/24 20:10 Plt Count 122 K/uL (130-400) L 03/27/24 20:10 MPV 9.7 fL (9.4-12.4) 03/27/24 20:10 Immature Gran % (Auto) 0.3 % 03/27/24 20:10 Neut % (Auto) 75.2 % 03/27/24 20:10 Lymph % (Auto) 10.0 % 03/27/24 20:10 Norman % (Auto) 12.5 % 03/27/24 20:10 Eos % (Auto) 1.7 % 03/27/24 20:10 Baso % (Auto) 0.3 % 03/27/24 20:10 Reticulocyte % (Auto) 0.83 % (0.50-2.00) 03/27/24 23:45 Neut # (Auto) 4.43 K/uL (1.40-6.50) 03/27/24 20:10 Lymph # (Auto) 0.59 K/uL (1.20-3.40) L 03/27/24 20:10 Norman # (Auto) 0.74 K/uL (0.11-0.59) H 03/27/24 20:10 Eos # (Auto) 0.10 K/uL (0.00-0.50) 03/27/24 20:10 Baso # (Auto) 0.02 K/uL (0.00-0.20) 03/27/24 20:10 Reticulocyte # 0.040 10^6/uL (0.020-0.100) 03/27/24 23:45 Immature Gran # (Auto) 0.02 K/uL (0.01-0.20) 03/27/24 20:10 PT 11.8 Seconds (9.0-12.0) 03/27/24 20:10 INR 1.1 (0.9-1.1) 03/27/24 20:10 APTT 30 Seconds (21-31) 03/27/24 20:10 PTT Ratio 1.1 03/27/24 20:10 POC Sodium 138 mmol/L (135-144) 03/27/24 20:15 Sodium 136 mmol/L (136-145) 03/27/24 20:10 POC Potassium 3.6 mmol/L (3.3-5.0) 03/27/24 20:15 Potassium 3.7 mmol/L (3.5-5.1) 03/27/24 20:10 POC Chloride 99 mmol/L (101-112) L 03/27/24 20:15 Chloride 103 mmol/L (98-107) 03/27/24 20:10 Carbon Dioxide 26 mmol/L (21-32) 03/27/24 20:10 POC Total CO2 25 mmol/L (24-31) 03/27/24 20:15 Anion Gap 7 (3-11) 03/27/24 20:10 POC Anion Gap 18.0 mmol/L (16-25) 03/27/24 20:15 POC BUN 17 mg/dl (7-18) 03/27/24 20:15 BUN 18 mg/dl (6-23) 03/27/24 20:10 Creatinine 0.90 mg/dl (0.6-1.4) 03/27/24 20:10 POC Creatinine 0.9 mg/dl (0.6-1.3) 03/27/24 20:15 Est Cr Clr Drug Dosing 67.0 ml/min 03/27/24 20:10 eGFR 90.74 03/27/24 20:10 BUN/Creatinine Ratio 20.0 (10-20) 03/27/24 20:10 Glucose 102 mg/dl (70-99(Fasting)) H 03/27/24 20:10 POC Glucose (other) 100 mg/dl (70-99) H 03/27/24 20:15 Calcium 8.8 mg/dl (8.6-10.3) 03/27/24 20:10 POC Ioniz Calcium Fidencio 1.16 mmol/l (1.12-1.32) 03/27/24 20:15 Magnesium 1.8 mg/dl (1.7-2.4) 03/27/24 20:10 Iron 21 mcg/dl (35-175) L 03/27/24 20:10 Transferrin 253 mg/dl (200-360) 03/27/24 20:10 Ferritin 36.4 ng/ml (8-388) 03/27/24 20:10 Total Bilirubin 1.2 mg/dl (0.2-1.0) H 03/27/24 20:10 AST 18 U/L (13-39) 03/27/24 20:10 ALT 4 U/L (7-52) L 03/27/24 20:10 Alkaline Phosphatase 99 U/L (34-104) 03/27/24 20:10 Troponin I High Sens 7.9 pg/ml (0-20) 03/27/24 20:10 Total Protein 6.8 gm/dl (6.0-8.3) 03/27/24 20:10 Albumin 4.3 gm/dl (3.4-5.0) 03/27/24 20:10 Globulin 2.5 gm/dl (2.5-4.0) 03/27/24 20:10 Albumin/Globulin Ratio 1.7 (0.9-2) 03/27/24 20:10 Vitamin B12 506 pg/ml (180-914) 03/27/24 20:10 Folate 10.96 ng/ml (>5.38) 03/27/24 20:10 Urine Color Yellow 03/27/24 20:24 Urine Appearance Clear (Clear) 03/27/24 20:24 Urine pH 5.0 (4.5-7.5) 03/27/24 20:24 Ur Specific Silva 1.027 (1.000-1.030) 03/27/24 20:24 Urine Protein Trace (Negative) H 03/27/24 20:24 Urine Glucose (UA) Negative (Negative) 03/27/24 20:24 Urine Ketones Trace (Negative) H 03/27/24 20:24 Urine Blood Negative (Negative) 03/27/24 20:24 Urine Nitrite Negative (Negative) 03/27/24 20:24 Urine Bilirubin Negative (Negative) 03/27/24 20:24 Urine Urobilinogen Negative (Negative) 03/27/24 20:24 Ur Leukocyte Esterase Trace (Negative) H 03/27/24 20:24 Urine WBC (Auto) 0-5 /hpf (0-5) 03/27/24 20:24 Urine RBC (Auto) 0-2 /hpf (0-2) 03/27/24 20:24 U Hyaline Cast (Auto) 3-5 /lpf (0-2) H 03/27/24 20:24 U Epithel Cells (Auto) 0-2 /hpf (0-2) 03/27/24 20:24 Urine Bacteria (Auto) None Seen (None Seen) 03/27/24 20:24 Urine Sperm Present (None Prsent) A 03/27/24 20:24 Adenovirus (PCR) Not Detected (NotDetected) 12/29/24 20:24 B. pertussis DNA (PCR) Not Detected (NotDetected) 03/27/24 20:24 B.parapertussis DNA PCR Not Detected (NotDetected) 03/27/24 20:24 C. pneumoniae DNA (PCR) Not Detected (NotDetected) 03/27/24 20:24 Coronavirus OC43 (PCR) Not Detected (NotDetected) 03/27/24 20:24 Coronavirus HKU1 (PCR) Not Detected (NotDetected) 03/27/24 20:24 Coronavirus 229E (PCR) Not Detected (NotDetected) 03/27/24 20:24 SARS-CoV-2 (PCR) DETECTED (NotDetected) A 03/27/24 20:24 Coronavirus NL63 (PCR) Not Detected (NotDetected) 03/27/24 20:24 Human Metapneumovir PCR Not Detected (NotDetected) 03/27/24 20:24 Influenza Type A (PCR) Not Detected (NotDetected) 03/27/24 20:24 Influenza Type B (PCR) Not Detected (NotDetected) 03/27/24 20:24 M. pneumoniae (PCR) Not Detected (NotDetected) 03/27/24 20:24 Parainfluenza 1 (PCR) Not Detected (NotDetected) 03/27/24 20:24 Parainfluenza 2 (PCR) Not Detected (NotDetected) 03/27/24 20:24 Parainfluenza 3 (PCR) Not Detected (NotDetected) 03/27/24 20:24 Parainfluenza 4 (PCR) Not Detected (NotDetected) 03/27/24 20:24 RSV (PCR) Not Detected (NotDetected) 03/27/24 20:24 Entero/Rhino (PCR) Not Detected (NotDetected) 03/27/24 20:24 Blood Type O Positive 03/27/24 23:45 Antibody Screen NEGATIVE 03/27/24 23:[address] 03/27/24 19:56 Exam(s): CT HEAD Without Contrast EXAM: CT Head Without Intravenous Contrast CLINICAL HISTORY: Reason for exam: neuro deficit, acute stroke suspected. TECHNIQUE: Axial computed tomography images of the head/brain without intravenous contrast. CTDI is 51 mGy and DLP is 874 mGy-cm. Automated exposure control was utilized for the study. A dose lowering technique was utilized adhering to the principles of ALARA. COMPARISON: No relevant prior studies available. FINDINGS: Brain: Benign appearing calcification right cerebellar hemisphere. Patchy chronic small vessel ischemic change and generalized volume loss. Fay-white matter differentiation maintained. No hemorrhage, mass-effect, parenchymal edema, or midline shift. Ventricles: Unremarkable. No hydrocephalus. Bones/joints: Unremarkable. No acute fracture. Soft tissues: Unremarkable. Vasculature: Intracranial atherosclerosis. No hyperdense vessel sign. Sinuses: Mucosal thickening in the paranasal sinuses with evidence of prior sinonasal surgery. Mastoid air cells: Unremarkable as visualized. No mastoid effusion. Orbits: Lens replacements. IMPRESSION: No acute intracranial process. Electronically signed by: Pepper Hines M.D. 03/27/24 21:32 PM Head CTA 03/27/24 19:56 Exam(s): CTA HEAD With Contrast IV Amt: 119 ml optiray 320 EXAM: CT Angiography Head With Intravenous Contrast CLINICAL HISTORY: Reason for exam: neuro deficit, acute stroke suspected. TECHNIQUE: Axial computed tomographic angiography images of the head with intravenous contrast. CTDI is 13 mGy and DLP is 495 mGy-cm. Automated exposure control was utilized for the study. A dose lowering technique was utilized adhering to the principles of ALARA. MIP reconstructed images were created and reviewed. CONTRAST: Patient received 119 ml optiray 320 of IV contrast COMPARISON: Same day CT head FINDINGS: Right internal carotid artery: Calcific plaquing of the intracranial right ICA with mild degrees of stenosis, not hemodynamically significant. No aneurysm. Right anterior cerebral artery: Unremarkable. No occlusion or significant stenosis. No aneurysm. Right middle cerebral artery: Unremarkable. No occlusion or significant stenosis. No aneurysm. Right posterior cerebral artery: Unremarkable. No occlusion or significant stenosis. No aneurysm. Right vertebral artery: Unremarkable as visualized. Left internal carotid artery: Calcific plaquing intracranial left ICA with mild degrees of stenosis, not hemodynamically significant. No aneurysm. Left anterior cerebral artery: Unremarkable. No occlusion or significant stenosis. No aneurysm. Left middle cerebral artery: Unremarkable. No occlusion or significant stenosis. No aneurysm. Left posterior cerebral artery: Unremarkable. No occlusion or significant stenosis. No aneurysm. Left vertebral artery: Unremarkable as visualized. Basilar artery: Unremarkable. No occlusion or significant stenosis. No aneurysm. Brain: Intracranial atherosclerosis. IMPRESSION: Patent intracranial circulation. Electronically signed by: Pepper Hines M.D. 03/27/24 21:39 PM Neck CTA 03/27/24 19:56 Exam(s): CTA NECK With Contrast IV Amt: 119ML OPTIRAY 320 EXAM: CT Angiography Neck With Intravenous Contrast CLINICAL HISTORY: Reason for exam: neuro deficit, acute stroke suspected. TECHNIQUE: Routine carotid CT angiography protocol was performed with intravenous contrast. NASCET criteria using the distal ICAs for comparison were used for evaluation of stenoses. CTDI is 51 mGy and DLP is 1386 mGy-cm. Automated exposure control was utilized for the study. A dose lowering technique was utilized adhering to the principles of ALARA. MIP reconstructed images were created and reviewed. CONTRAST: Patient received 119ML OPTIRAY 320 of IV contrast COMPARISON: None. FINDINGS: VASCULATURE: Right common carotid artery: Unremarkable. No occlusion or significant stenosis. No dissection. Right internal carotid artery: Unremarkable. Extracranial segment is patent with no occlusion or significant stenosis. No dissection. Right external carotid artery: Unremarkable. No occlusion. Right vertebral artery: Unremarkable. No occlusion or significant stenosis. No dissection. Left common carotid artery: Unremarkable. No occlusion or significant stenosis. No dissection. Left internal carotid artery: Unremarkable. Extracranial segment is patent with no occlusion or significant stenosis. No dissection. Left external carotid artery: Unremarkable. No occlusion. Left vertebral artery: Unremarkable. No occlusion or significant stenosis. No dissection. Aorta: Conventional aortic arch branch anatomy. NECK: Bones/joints: Degenerative change in the spine. No acute osseous findings. Soft tissues: Unremarkable. Thyroid: Left thyroid nodule measuring 13 mm; no follow-up indicated based on size criteria. Lung apices: Clear. CAROTID STENOSIS REFERENCE USING NASCET CRITERIA: % ICA stenosis = (1 - narrowest ICA diameter/diameter of distal cervical ICA) x 100. Mild - <50% stenosis. Moderate - 50-69% stenosis. Severe - 70-94% stenosis. Near occlusion - 95-99% stenosis. Occluded - 100% stenosis. IMPRESSION: No dissection, hemodynamically significant stenosis, or occlusion. Electronically signed by: Pepper Hines M.D. 03/27/24 21:37 PM Diagnostic Findings Chest x-ray as per my interpretation minimal congestion EKG as per my interpretation : Rate 85, NSR, normal axis, ST depression lateral leads
[2024-03-28] MEDS ORDERED: NITROGLYCERIN SL 0.4 MG/TAB TAB SL PRN (01:52)
[2024-03-28] MEDS ORDERED: PHARMACIST DISCHARGE MED REC CONSULT PRN (01:54)
[2024-03-28] MEDS ORDERED: PROMETHAZINE 6.25 MG/50.25 ML BAG IV PRN (01:56)
[2024-03-28] MEDS ORDERED: ACETAMINOPHEN 325 MG TAB PO PRN (01:56)
--- NOTE | 2024-03-28 03:25 | XRay Report ---
EXAM: XR chest 1V portable CLINICAL HISTORY: COVID +, WHEEZING. TECHNIQUE: X-ray examination of the chest AP portable view. COMPARISON: 09/26/2014 CR. FINDINGS: Suspicion of prominent bronchovascular markings with the haziness of the right lower zone could be projectional, however evolving lung infection could not be entirely ruled out. Clear left lung is seen. Cardiac size is not enlarged. No pleural effusion seen. No pneumothorax seen. Intact bony thorax is seen. IMPRESSION: 1. Suspicion of prominent bronchovascular markings with haziness of the right lower zone could be projectional, however evolving lung infection could not be entirely ruled out. 2. New findings compared to the prior study. Please correlate clinically. Electronically signed by Anoop Martin 03-28-2024 03:25 AM
[2024-03-28] MEDS: CARBIDOPA/LEVODOPA 25-250 1 EA TAB PO SCH (03:31)
[2024-03-28] MEDS: ALBUT/IPRATROP 3MG/0.5MG NEB 3 ML VIAL NEB STA (03:31)
--- NOTE | 2024-03-28 04:03 | Magnetic Resonance Report ---
EXAM: MR brain wo con CLINICAL HISTORY: Began to shuffle more than normal. Parkinsons. COVID positive. TECHNIQUE: MRI of the brain was performed without contrast with multiplanar sequences obtained. COMPARISON: 05/23/2021 MRI. FINDINGS: Brain Parenchyma: Age-related brain involution with bilateral multiple patchy discrete T2WI and FLAIR small lesions in the periventricular and subcortical white matter suggesting moderate chronic microvascular ischemic changes No evidence of acute infarction or hemorrhage. Normal alvarado-white matter differentiation. Ventricles and Sulci: The ventricular system, cortical sulci and basal cisterns are prominent and consistent with senile changes Posterior Fossa: Cerebellum and brainstem appear normal without evidence of mass lesions or signal abnormalities. Cranial Nerves: Normal course and appearance of cranial nerves identified. Orbits and Skull Base: Orbits and skull base structures are normal without evidence of abnormalities. IMPRESSION: 1. No acute intracranial abnormality identified. 2. No interval change in comparison with the MRI on 05/23/2021. 3. Age-related brain involution with moderate chronic microvascular ischemic changes Electronically signed by Anoop Martin 03-28-2024 04:03 AM
[2024-03-28 05:24] LABS: Basophils # (auto) 0.02 K/uL (0.00-0.20); Basophils % (auto) 0.4 %; Eosinophils # (auto) 0.06 K/uL (0.00-0.50); Eosinophils % (auto) 1.1 %; Hematocrit (blood only) 35.2 % (42.0-52.0); Hemoglobin 12.2 g/dl (14.0-18.0); Immature Granulocytes # (auto) 0.03 K/uL (0.01-0.20); Immature Granulocytes % (auto) 0.6 %; Lymphocytes # (auto) 0.78 K/uL (1.20-3.40); Lymphocytes % (auto) 14.8 %; Mean Corpuscular Hemoglobin 30.3 pg (25.0-34.0); Mean Corpuscular Hgb Conc 34.7 g/dL (32.0-36.0); Mean Corpuscular Volume 87.6 fL (80.0-100.0); Mean Platelet Volume 9.5 fL (9.4-12.4); Monocytes # (auto) 0.77 K/uL (0.11-0.59); Monocytes % (auto) 14.6 %; Neutrophils % (auto) 68.5 %; Platelet Count 107 K/uL (130-400); RDW Coefficient of Variation 12.8 % (11.5-14.5); RDW Standard Deviation 41.1 fL (36.4-46.3); Red Blood Count 4.02 M/uL (4.70-6.10); White Blood Count 5.26 K/ul (4.8-10.8)
[2024-03-28 05:40] LABS: BUN Creatinine Ratio 19.8 (10-20); Calcium 8.4 mg/dl (8.6-10.3); Chol HDL Ratio 1.9 (0-5); Creatinine Clr Calc Pharmacy 74.4 ml/min; Potassium 3.7 mmol/L (3.5-5.1)
[2024-03-28 07:04] VITALS: BP 131/65
[2024-03-28 07:19] VITALS: PULSE 80; RESP 14; O2SAT 95
[2024-03-28 07:29] LABS: Estimated Average Glucose 114 mg/dl; Hemoglobin A1C 5.6 % (4.5-5.6)
[2024-03-28] MEDS: PANTOprazole 40 MG TAB PO SCH (08:36)
[2024-03-28] MEDS: FLUTICASONE/VILANTEROL 200/25MCG 14 PUFFS/INHALER INH SCH (08:36)
[2024-03-28] MEDS: SENNA 8.6 MG TAB PO SCH (08:36)
[2024-03-28] MEDS: SERTRALINE HCL 50 MG TABLET PO SCH (08:36)
[2024-03-28] MEDS: ATORVASTATIN 40 MG TAB PO SCH (08:36)
[2024-03-28] MEDS: ASPIRIN 81 MG ECTAB PO SCH (08:36)
[2024-03-28] MEDS: MULTIVITAMIN TAB PO SCH (08:36)
[2024-03-28] MEDS: POLYETHYLENE (MIRALAX) 17 GM PACK PO SCH (08:37)
--- NOTE | 2024-03-28 09:23 | Electrocardiogram Report ---
Test Reason : Blood Pressure : */* mmHG Vent. Rate : 85 BPM Atrial Rate : 85 BPM P-R Int : 152 ms QRS Dur : 96 ms QT Int : 370 ms P-R-T Axes : 66 23 34 degrees QTcB Int : 440 ms Sinus rhythm with Premature atrial complexes Nonspecific ST and T wave abnormality Abnormal ECG When compared with ECG of 26-Sep-2014 18:26, Premature atrial complexes are now Present Nonspecific T wave abnormality now evident in Lateral leads Confirmed by Violet Mills (Carly) on 03/28/2024 9:23:27 AM Referred By: REFERRED SELF Confirmed By: Violet Mills
--- NOTE | 2024-03-28 10:05 | Neurology Consultation ---
Date of Consultation March 28, 2024 Assessment & Plan (1) COVID-19: History of Present Illness Attending Physician: César Jolley DO History of Present Illness pt feeling well. speech back to baseline. mri brain negative. pt covid +. chart reviewed. admission HPI: Patient is a 73-year-old gentleman past medical history including Parkinson's, CAD with stent, hypertension presenting with manuel who was concerned that he could have had a stroke or mini stroke the today. Woke up okay and went to [facility] okay this morning. Came back around noon or so and things seemed okay according to and patient. came and checked on around 4:30 PM this afternoon and noted that his head seem to be tilting to the right some and maybe his speech was little more slurred or difficult than normal. Has bit of a shuffling gait at baseline and a bit of hypophonia. Patient reports he is Spanish having little trouble with finding his words. Denies any new numbness or tingling. Denies any significant weakness or new ambulatory issues. Denies vision change. Has been taking his medications. talked with him and eventually convinced him to come for further evaluation here. In discussion with and patient maybe his speech is just ever so slightly off. Still has a little bit of tilt to the right. Maybe a slight cough has a history of COPD as well but no significant fevers or cold symptoms otherwise reported. No falls reported. Allergies Allergy/AdvReac Type Severity Reaction Status Date / Time dextromethorphan Allergy Severe THROAT Verified 09/22/23 10:58 SWELLING Home Medications Medication Instructions Recorded Confirmed Type albuterol sulfate 90 mcg/actuation 2 inh inhalation Q4H PRN sob 05/08/21 03/27/24 History breath activated powder inhaler aspirin 81 mg tablet,delayed 81 mg PO .COMPLEX 05/08/21 03/27/24 History release (Swapnil Low Dose Aspirin) atorvastatin 40 mg tablet 40 mg PO DAILY 05/08/21 03/27/24 History fluticasone 250 mcg-salmeterol 50 1 inh inhalation BID 05/08/21 03/27/24 History mcg/dose blistr powdr for inhalation (Advair Diskus) metoprolol succinate 25 mg 25 mg PO DAILY 05/08/21 03/27/24 History tablet,extended release 24 hr nitroglycerin 0.4 mg sublingual 0.4 mg sublingual Q5M PRN attack 05/08/21 03/27/24 History tablet pantoprazole 40 mg tablet,delayed 40 mg PO DAILY 05/08/21 03/27/24 History release polyethylene glycol 3350 17 17 g PO DAILY 05/08/21 03/27/24 History gram/dose oral powder (Miralax) sennosides 8.6 mg tablet (Natural 8.6 mg PO DAILY 05/08/21 03/27/24 History Senna Laxative) sertraline 25 mg tablet 25 mg PO DAILY 05/08/21 03/27/24 History simethicone 80 mg chewable tablet 80 mg PO .COMPLEX PRN Constipation 05/08/21 03/27/24 History multivitamin 1 tab PO DAILY #30 tabs 05/09/21 03/27/24 Rx magnesium oxide 400 mg PO HS #30 caps 05/31/21 03/27/24 Rx carbidopa 25 mg-levodopa 250 mg 1 tab PO TID #270 tabs 01/22/24 03/27/24 Rx tablet Patient History Medical History Biceps muscle tear Emphysema, unspecified HTN (hypertension) Surgical History History of sinus surgery Family History Mother No problems noted. 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 Other Information That Helps Us Care for You: No Feels Safe at Home: Yes Safety Concerns: Feels Safe At This Time Assistive Devices: None Exam (Neuro) Physical Exam: HEENT: normocephalic grossly Neuro: Mental: AOx4, fluent speech, normal comprehension, no apraxia, no L/R confusion, no neglect CN: PERRL, Full EOM, symmetric face, midline T/U/P, grossly full ROM neck Motor: No abnormal movements, mild increase tone t/l upper limbs., 5/5 t/o bilaterally Coord: intact DTR: 2+ sym b/l Gait: intact grossly Impression: 73 yo male with resolved speech change in setting of parkinson and covid positive. mri brain negative. I do not feel he had vascular event. Likely Covid related symptom and fluctuating symptom of parkinson. Recommendations: no further neuro work up needed at this point. well known to neurology clinic, routine f/u as planned with our PA. shannon tx. call again if new question. Chart reviewed I have spent more than 50% educating patient about potential diagnosis and neurological evaluation and coordinating care with patient's treatment team. Total time spent (including chart review and coordination of care): 45 min (this includes chart review). Results & Data Vital Signs (Past 12 Hours) Vital Signs Pulse Pulse Resp BP BP Pulse Ox Pulse Ox 03/28/24 07:18 80 14 131/65 95 03/28/24 07:13 62 03/28/24 07:03 64 18 131/65 03/28/24 06:36 83 21 96 03/28/24 06:15 68 22 03/28/24 06:09 68 21 03/28/24 06:00 115/70 03/28/24 05:36 76 22 90 03/28/24 05:00 83 26 H 98/59 L 90 03/28/24 04:30 84 25 H 90 03/28/24 04:05 03/28/24 04:05 66 21 138/99 97 03/28/24 03:47 122/69 03/28/24 03:42 69 15 03/28/24 03:41 96 03/28/24 03:39 138/99 03/28/24 02:30 62 18 152/74 H 97 03/28/24 02:00 146/74 H 03/28/24 00:05 76 03/28/24 00:00 72 16 133/67 94 03/27/24 23:37 87 22 148/80 H 94 O2 Del Method O2 Del Method 03/28/24 07:18 Room Air 03/28/24 07:13 03/28/24 07:03 03/28/24 06:36 Room Air 03/28/24 06:15 03/28/24 06:09 03/28/24 06:00 03/28/24 05:36 03/28/24 05:00 Room Air 03/28/24 04:30 03/28/24 04:05 Room Air 03/28/24 04:05 Room Air 03/28/24 03:47 03/28/24 03:42 03/28/24 03:41 Room Air 03/28/24 03:39 03/28/24 02:30 Room Air 03/28/24 02:00 03/28/24 00:05 03/28/24 00:00 Room Air 03/27/24 23:37 Room Air PG Care Time/CCT Total # of Minutes Spent Total Time Spent with Patient: Total time spent is greater than 50% in coordination of care (as documented) at patient's floor/unit and/or counseling patient: Coding Level of Care Code 26881 IN/OBS CONSULT LVL 3,45M Diagnoses COVID-19 U07.1
--- NOTE | 2024-03-28 13:46 | Discharge Summary ---
Discharge Summary Date of Service March 28, 2024 Principal Dx & Hospital Course #1 = Principal Diagnosis (1) COVID-19: (2) Parkinson disease: (3) HTN (hypertension): (4) Emphysema, unspecified: Plan Patient presented to the emergency room with more stuttering speech and tilting to the right. In the emergency room workup was negative for acute stroke. Did test positive for COVID-19. He was referred for further observation. Patient was observed in the hospital. There is no significant arrhythmias. The patient was completely asymptomatic from his COVID diagnosis. No shortness of breath, no significant cough. Maybe a little bit of a runny nose. MRI of the brain was performed that was negative for evidence of his stroke and no acute changes from previous. Was seen by neurology here in the hospital. Determined that patient's Parkinson's symptoms likely exacerbated due to the stress of the COVID-19. Do not make any recommended changes in his medications or other interventions. At time of discharge patient seems to be back to his baseline. Understands the waxing and waning nature of his Parkinson's and how any type of stressor can exacerbate his symptoms. Again at most a runny nose with his COVID symptoms. He will be discharged home to continue to recuperate at home he has an appoint with his neurologist in the coming 4 weeks. is at the bedside understands of the course of care and agreeable to discharge along with the patient. Notes For Next Care Provider Medication Changes From Visit None Admission HPI Per Admitting Provider History obtained from patient, family, and records. Medical history significant for chronic systolic heart failure (EF 45%, TTE 2022), CAD status post stent, mild TR, pulmonary hypertension, hypertension, hyperlipidemia, COPD, mild BRAD, GERD, chronic anemia (baseline hemoglobin of 13), Parkinson's disease, memory impairment as per records, history of traumatic brain injury, recurrent epistaxis, history nasal perforation as per records, poliomyelitis, past alcohol/tobacco abuse. 2 weeks history of history of cough symptoms productive of clear sputum. No unusual chest pain or SOB. Usual wheezing symptoms at home from COPD as per patient. Patient no sure about sick contacts. Denies aspiration. Yesterday afternoon, patient had noted to be tilted to the right, patient speech more slurred than usual. Patient only able to take daily aspirin 3 times a week due to frequent epistaxis episodes which has required cautery by ENT specialist in the past. Self-limited epistaxis episode yesterday without headache complaints. Denies abdominal pain/black/bloody stools. Patient brought to ER for evaluation. Slurred speech much better as per patient/family. Medical History as above Surgical History : Tonsillectomy, cataract surgeries, biceps tendon repair, sinus surgery Family History : Stroke, Jayy syndrome, brain cancer Personal/Social history : Past tobacco/alcohol abuse, retired staff development manager Admission Exam Per Admitting Provider See H&P Discharge Exam Constitutional: Alert, nontoxic HEENT: Mucous membranes moist. Lungs: Clear to auscultation, decreased, no wheezes rales or rhonchi CV: S1-S2, regular Abdomen: Soft, nontender, nondistended Extremities: No significant edema Neuro: Parkinsonian facies and rigidity Psych: Cooperative, normal mood Updated Medication List Medication Instructions Recorded Confirmed Type albuterol sulfate 90 mcg/actuation 2 inh inhalation Q4H PRN sob 05/08/21 03/27/24 History breath activated powder inhaler aspirin 81 mg tablet,delayed 81 mg PO .COMPLEX 05/08/21 03/27/24 History release (Swapnil Low Dose Aspirin) atorvastatin 40 mg tablet 40 mg PO DAILY 05/08/21 03/27/24 History fluticasone 250 mcg-salmeterol 50 1 inh inhalation BID 05/08/21 03/27/24 History mcg/dose blistr powdr for inhalation (Advair Diskus) metoprolol succinate 25 mg 25 mg PO DAILY 05/08/21 03/27/24 History tablet,extended release 24 hr nitroglycerin 0.4 mg sublingual 0.4 mg sublingual Q5M PRN attack 05/08/21 03/27/24 History tablet pantoprazole 40 mg tablet,delayed 40 mg PO DAILY 05/08/21 03/27/24 History release polyethylene glycol 3350 17 17 g PO DAILY 05/08/21 03/27/24 History gram/dose oral powder (Miralax) sennosides 8.6 mg tablet (Natural 8.6 mg PO DAILY 05/08/21 03/27/24 History Senna Laxative) sertraline 25 mg tablet 25 mg PO DAILY 05/08/21 03/27/24 History simethicone 80 mg chewable tablet 80 mg PO .COMPLEX PRN Constipation 05/08/21 03/27/24 History multivitamin 1 tab PO DAILY #30 tabs 05/09/21 03/27/24 Rx magnesium oxide 400 mg PO HS #30 caps 05/31/21 03/27/24 Rx carbidopa 25 mg-levodopa 250 mg 1 tab PO TID #270 tabs 01/22/24 03/27/24 Rx tablet Hospital Stay Data Consultations 03/27/24 22:15 ED Decision to Admit Stat 03/28/24 01:54 Consult Neurology Routine Diagnostic Imagining Performed 03/27/24 19:56 CT angio head w con Stat CT angio neck with con Stat CT head/brain wo con Stat 03/28/24 01:54 MRI Brain [MR brain wo con] Routine Reviewed imaging, laboratory and diagnostic studies. Pertinent findings as below. MRI of the brain no acute stroke WBCs 5.2 Hemoglobin 12.2 Electrolytes stable Creatinine 0.81 Vitamin B12 506 Folate 10.9 Pending Results Patient Have Any Pending Studies at Discharge: No Discharge Instructions Given to Patient (Per Discharging Provider) Follow-up with your neurologist as already scheduled Total Time Total Time Spent Total Time Spent (In Minutes): 25
== END 2024-03-28 14:12 | disposition home or self-care (01) ==
LOC: ED 19:45 → EDINP 19:45